=== PATIENT | female | born 1955 | race Caucasian/White ===

== ENCOUNTER → 2017-07-04 | Outpatient (REF) | payer BC ==
[~2017-07-04] MED LIST: /WARF2TA; AMBI10TA OR; ASACOL; CIPR500T19; CITRTAB14 PO; FERROUS SULFATE PO; FLAG500T; IMMODIUM; Januvia OR; KEFL500C OR; LISI5TAB OR; LOPE2TAB3 PO; MESALAMINE ENEMA; MULTTAB4 PO; OXYC10TA12; OXYC10TA56; PRAV10TA4 OR; PRED10TA2; PRIL20CA PO; PULMICORT; TYLE325T5 PO; TYLENOL #3; WELLTAB4 PO; xarelto OR
== END ==
LOC: M LAB REF 17:35
PROVIDERS: ATTEND Nurse Practitioner Family
DX: Z02.1 Encounter for pre-employment examination (principal)

== ENCOUNTER → 2017-11-27 | Outpatient (REF) | payer BC | LOC: M LAB REF 12:47 | DX: N76.0 Acute vaginitis (principal) ==

== ENCOUNTER → 2020-04-11 | Outpatient (REF) | payer MEDICARE, BC ==
[~2020-04-11] MED LIST changes: -/WARF2TA; +COUM1TAB16
== END ==
LOC: M LAB REF 16:04
PROVIDERS: ATTEND Nurse Practitioner Family
DX: N39.0 Urinary tract infection, site not specified (principal)

== ENCOUNTER → 2020-04-26 | Outpatient (REF) | payer MEDICARE, BC ==
[2020-04-26 13:17] LABS: APPEARANCE, URINE CLEAR (CLEAR); BACTERIA, URINE AUTO NEGATIVE (NEGATIVE); BILIRUBIN, URINE AUTO NEGATIVE (NEGATIVE); BLOOD, URINE BLOOD NEGATIVE (NEGATIVE); COLOR, URINE YELLOW (YELLOW); GLUCOSE, URINE (UA) AUTO NEGATIVE (NEGATIVE); KETONE, URINE AUTO NEGATIVE (NEGATIVE); LEUKOCYTE ESTERASE, URINE AUTO NEGATIVE (NEGATIVE); NITRITE, URINE AUTO NEGATIVE (NEGATIVE); PROTEIN, URINE AUTO NEGATIVE (NEGATIVE); RBC, URINE AUTO 1 /HPF (0-3); SPECIFIC GRAVITY URINE AUTO 1.005 (1.002-1.035); SQUAMOUS EPITHELIAL CELL UR AU 0 /HPF (0-6); UROBILINOGEN, URINE AUTO 0.2 mg/dL (0.0-2.0); WBC, URINE AUTO 0 /HPF (0-3)
== END ==
LOC: M LAB REF 12:28
PROVIDERS: ATTEND Nurse Practitioner Family
DX: N39.0 Urinary tract infection, site not specified (principal)

== ENCOUNTER → 2020-05-09 | Outpatient (CLI) | payer MEDICARE, BC ==
--- NOTE | 2020-05-09 08:46 | REPMRS ---
Patient History The patient states she had a clinical breast exam in March 2020.Family history of breast cancer at age 40 in maternal cousin. Digital Woman Screen Mammo: May 09, 2020 - Exam #: [id number] Bilateral CC and MLO view(s) were taken. Technologist: Slime Siu, Technologist Prior study comparison: December 02, 2017, digital woman screen mammo performed at [facility]. September 26, 2016, bilateral digital mammo screening bilat, performed at [facility]. March 14, 2014, bilateral digital mammo screening bilat, performed at [facility]. FINDINGS: The breast tissue is heterogeneously dense. This may lower the sensitivity of mammography. The Volpara volumetric breast density category is: C. There is a stable nodular density on the right unchanged from multiple prior studies. There is a moderate amount of heterogeneously dense fibroglandular tissue which is fairly symmetric. There is no interval development of dominant mass, architectural distortion, or grouped microcalcification typical of malignancy. There has been no change in the appearance of the mammogram from the prior studies. 3-D tomosynthesis shows no additional findings. Assessment: BI-RADS/ACR category 2 mammogram. Benign Findings. Recommendation Routine screening mammogram of both breasts in 1 year (for women over age 40). This patient's Lifetime Breast Cancer RIsk is estimated at 3.6 %. This mammogram was interpreted with the aid of an FDA-approved computer-aided dectection system. Electronically Signed By: Koffi Fenton MD 05/09/20 0846
--- NOTE | 2020-05-11 11:40 | DEXA ---
AP SPINE L1 - L4 1.034 -1.3 0.3 LT FEMUR TOTAL 0.873 -1.1 0.2 LT NECK 0.819 -1.6 -0.1 RT FEMUR TOTAL 0.898 -0.9 0.4 RT NECK 0.821 -1.6 -0.1 TOTAL BODY TOTAL OTHER COMMENTS: There is low bone density of the spine and hips. The density of the spine has increased 5.5% since the initial exam on 05/04/1998. The increased 10.6% since the most recent exam on 12/02/2017. The density of the left hip has decreased 2.3% since the initial exam on 05/04/1998. The density of the left hip is 0% since the most recent exam on 12/12/2017. The density of the right hip has decreased 3.8% since the initial exam on 05/04/1998. The density of the right hip has increased 4.5% since the most recent exam on 12/12/2017. FOLLOW-UP: Recommendation for the next bone density exam: 2 years. AJAY
== END ==
LOC: M WHC 07:39
PROVIDERS: ATTEND Nurse Practitioner Family
DX: Z12.31 Encounter for screening mammogram for malignant neoplasm of breast (principal); M85.80 Other specified disorders of bone density and structure, unspecified site

== ENCOUNTER → 2020-10-26 | Outpatient (CLI) | payer SELFPAY | LOC: M LABSMTC 13:51 | PROVIDERS: ATTEND Pediatrics | DX: Z20.828 Contact with and (suspected) exposure to other viral communicable diseases (principal) ==

== ENCOUNTER → 2020-11-23 | Outpatient (REF) | payer MEDICARE, SELFPAY | LOC: M WUC 20:44 | PROVIDERS: ATTEND Nurse Practitioner Family | DX: N39.0 Urinary tract infection, site not specified (principal) ==

== ENCOUNTER → 2021-02-06 | Outpatient (CLI) | payer MEDICARE, BC ==
[2021-02-06 12:48] LABS: BASO # 0.1 10^3/uL (0.0-0.2); BASO % 0.6 % (0.0-1.0); EOS # 0.1 10^3/uL (0.0-0.5); EOS % 1.1 % (0.0-3.0); HEMATOCRIT 36.6 % (36.0-47.0); HEMOGLOBIN 11.7 g/dl (12.0-15.5); LYMPH # 2.1 10^3/uL (1.5-5.0); LYMPH % 20.5 % (24.0-44.0); MEAN CORPUSCULAR HEMOGLOBIN 27.1 pg (27.0-33.0); MEAN CORPUSCULAR VOLUME 84.7 fl (80.0-96.0); MONO # 0.7 10^3/uL (0.0-0.8); NEUTROPHILS # 7.1 10^3/uL (1.5-8.5); NEUTROPHILS % 70.4 % (36.0-66.0); PLATELET COUNT, AUTOMATED 510 10^3/uL (150-450); RED BLOOD COUNT 4.32 10^6/uL (4.00-5.40); WHITE BLOOD COUNT 10.1 10^3/uL (4.0-10.0)
[2021-02-06 13:51] LABS: ERYTHROCYTE SEDIMENTATION RATE 44 mm/hr (0-30)
[2021-02-06 14:08] LABS: C REACTIVE PROTEIN QUANTITATIV 0.66 MG/DL (0.00-0.30); FOLATE 20.3 NG/ML; PERCENT SATURATION 9.7 % (13.2-45.0)
[2021-02-07 04:07] LABS: HEPATITIS B CORE ANTIBODY IGG Negative (Negative)
== END ==
LOC: M LAB 11:46
PROVIDERS: ATTEND Internal Medicine Gastroenterology
DX: K50.812 Crohn's disease of both small and large intestine with intestinal obstruction (principal); Z11.59 Encounter for screening for other viral diseases

== ENCOUNTER → 2021-02-22 | Outpatient (CLI) | payer MEDICARE, BC ==
[2021-02-22 15:09] LABS: BLOOD UREA NITROGEN 16 MG/DL (7-18); GLOMERULAR FILTRATION RATE > 60.0 (>45)
== END ==
LOC: M LAB 14:11
PROVIDERS: ATTEND Internal Medicine Gastroenterology
DX: K50.812 Crohn's disease of both small and large intestine with intestinal obstruction (principal); Z93.2 Ileostomy status

== ENCOUNTER → 2021-02-28 | Outpatient (CLI) | payer MEDICARE, BC ==
[~2021-02-28] MED LIST changes: +GLUCAGON INJ 1MG VIAL As Ordered ONE; +ISOVUE-370 76% 100ML VIAL As Ordered ONE; +VoLumen 0.1% SUSPENSION 450ML BOTTLE As Ordered ONE
--- NOTE | 2021-02-28 10:59 | REP ---
INDICATION: CROHN'S DX COMPARISON: 01/30/2014. TECHNIQUE: CT Scan of the abdomen and pelvis was performed with intravenous administration of 100 cc of Isovue 370, and volumen oral contrast. Sagittal and coronal reconstruction images are performed. FINDINGS: Lung bases: Unremarkable. Liver: Normal Gallbladder: Prior cholecystectomy. There is expected prominence of the intrahepatic and extrahepatic bile ducts. The common bile duct measures 11 mm in maximum diameter. Spleen: Normal. Adrenals: Normal. Pancreas: Normal. Kidneys: Normal. Small and large bowel: There has been a prior colectomy. A right ileostomy is present. There is a suture line in the distal ileum, in the pelvis just to the left of midline. Just proximal to the suture line there is appears to be an area of focal wall thickening and moderate luminal narrowing, with moderate dilatation of the more proximal small bowel loop. There also appears to be focal wall thickening and suspected stricture ring of the ileum just distal to the suture line. Another focal area of wall thickening and stricturing is suspected approximately 5 cm distal to that. There is diffuse wall thickening of the more distal ileum with suspected focal stricture of the distal ileum located in the more inferior ventral hernia. Free fluid: None. Abdominal aorta: No aneurysm or dissection. Adenopathy: None. Appendix: Not inflamed. Osseous structures: There are degenerative changes of the spine without compression deformity. Pelvis: No mass. There are 3 wide ventral hernias containing noninflamed fat and bowel loops. IMPRESSION: Postsurgical changes with several areas of mucosal fold and wall thickening of distal ileum, and intermittent moderate small bowel dilatation, suggesting partial obstruction at these areas of luminal narrowing and strictures. <Electronically signed by Elias Lui > 02/28/21 [id number]
== END ==
LOC: M RAD 08:17
PROVIDERS: ATTEND Internal Medicine Gastroenterology
DX: K50.812 Crohn's disease of both small and large intestine with intestinal obstruction (principal); Z90.49 Acquired absence of other specified parts of digestive tract
CPT/HCPCS: 74177; J1610; Q9967

== ENCOUNTER 2021-03-15 14:40 | Outpatient (CLI) | payer MEDICARE, BC ==
[~2021-03-15] VITALS: Ht 153.7 cm; Wt 52.7 kg
[~2021-03-15 14:40] MED LIST changes: -GLUCAGON INJ 1MG VIAL As Ordered ONE; -ISOVUE-370 76% 100ML VIAL As Ordered ONE; -VoLumen 0.1% SUSPENSION 450ML BOTTLE As Ordered ONE
[2021-03-15] MEDS ORDERED: USTEKINUMAB 260 MG in NS 198 ML IV ONE (15:00)
[2021-03-15 16:15] VITALS: BP 131/63
== END 2021-03-15 16:45 | disposition home or self-care (01) ==
LOC: M INFU 14:40
PROVIDERS: ATTEND Internal Medicine Gastroenterology
DX: K50.90 Crohn's disease, unspecified, without complications (principal); Z88.1 Allergy status to other antibiotic agents
CPT/HCPCS: 96365; J3358

== ENCOUNTER → 2021-05-21 | Outpatient (CLI) | payer MEDICARE, BC ==
[~2021-05-21] MED LIST changes: +ACET1TAB55 PO; +ASPI81CH33 PO; +ATOR1TAB21; +BUSP15TA47; +CALC600T61 PO; +CLAR10CA3 PO; +FERR325T3 PO; +LISI2.5T2 PO; +MELA10CA6 PO; +METF-838; +MULT-90 PO; +OMEP-218 PO; +PROBCAP14 PO; +STEL90IN
--- NOTE | 2021-05-21 09:54 | REP ---
INDICATION: UPPER ABD PAIN LIVER SPLEEN ? SPLEENOMEGALY. COMPARISON: None. TECHNIQUE: Transabdominal ultrasound FINDINGS: Multiple ultrasonographic images of the liver show the hepatic parenchymal echo pattern to be within normal limits. There is no intrahepatic or extrahepatic ductal dilatation. The common bile duct measures 7 mm. The imaged portion of the pancreas is within normal limits. The spleen measures 8.9 x 7.4 x4.8 cm. The volumetric index calculation is 316. This is within the normal range. No splenic or perisplenic abnormalities are noted. The right kidney measures 9.9 x 5.6 x 3.6 cm. The renal cortical echotexture is within normal limits. Corticomedullary differentiation is preserved. There is no hydronephrosis. There are no masses. The left kidney measures 9.6 x 3.7 x 5.1 cm. The renal cortical echotexture is within normal limits. Corticomedullary differentiation is preserved. There is no hydronephrosis. There are no masses. The imaged portion of the abdominal aorta is within normal limits. There is no evidence of free fluid. IMPRESSION: Within normal limits <Electronically signed by Gary Arevalo > 05/21/21 0995
== END ==
LOC: M RAD 09:06
PROVIDERS: ATTEND Internal Medicine Hematology & Oncology
DX: R16.1 Splenomegaly, not elsewhere classified (principal)

== ENCOUNTER → 2021-06-28 | Outpatient (CLI) | payer MEDICARE, BC ==
[~2021-06-28] MED LIST changes: -ATOR1TAB21; +ATOR1TAB21 PO; -BUSP15TA47; +BUSP15TA47 PO; +CALC-176 PO; +JANU100T PO; -LISI2.5T2 PO; +LISI2.5T9 PO; +LOPE-39 PO; -METF-838; +METF-838 PO; -STEL90IN; +STEL90IN IM; +WELLTAB38 PO; +XARE20TA PO
[2021-06-28 16:11] LABS: BASO # 0.1 10^3/uL (0.0-0.2); BASO % 0.6 % (0.0-1.0); EOS # 0.1 10^3/uL (0.0-0.5); EOS % 0.7 % (0.0-3.0); HEMATOCRIT 36.9 % (36.0-47.0); HEMOGLOBIN 11.9 g/dl (12.0-15.5); LYMPH # 2.3 10^3/uL (1.5-5.0); LYMPH % 21.9 % (24.0-44.0); MEAN CORPUSCULAR HEMOGLOBIN 28.8 pg (27.0-33.0); MEAN CORPUSCULAR HGB CONC 32.2 g/dl (32.0-36.5); MEAN CORPUSCULAR VOLUME 89.3 fl (80.0-96.0); MONO # 0.9 10^3/uL (0.0-0.8); MONO % 8.1 % (2.0-8.0); NEUTROPHILS # 7.1 10^3/uL (1.5-8.5); NEUTROPHILS % 68.2 % (36.0-66.0); PLATELET COUNT, AUTOMATED 454 10^3/uL (150-450); RED BLOOD COUNT 4.13 10^6/uL (4.00-5.40); WHITE BLOOD COUNT 10.4 10^3/uL (4.0-10.0)
[2021-06-28 16:33] LABS: ERYTHROCYTE SEDIMENTATION RATE 39 mm/hr (0-30)
[2021-06-28 16:41] LABS: ALBUMIN 3.3 GM/DL (3.2-5.2); ALT/SGPT 30 U/L (12-78); BILIRUBIN,DIRECT 0.1 MG/DL (0.0-0.2); BILIRUBIN,TOTAL 0.4 MG/DL (0.2-1.0); BLOOD UREA NITROGEN 13 MG/DL (7-18); C REACTIVE PROTEIN QUANTITATIV 0.64 MG/DL (0.00-0.30); CALCIUM LEVEL 9.6 MG/DL (8.8-10.2); CARBON DIOXIDE LEVEL 28 MEQ/L (21-32); CHLORIDE LEVEL 106 MEQ/L (98-107); CREATININE FOR GFR 0.84 MG/DL (0.55-1.30); GLOMERULAR FILTRATION RATE > 60.0 (>45); GLUCOSE, FASTING 126 MG/DL (70-100); IRON (FE) 33 UG/DL (50-170); PERCENT SATURATION 7.8 % (13.2-45.0); POTASSIUM SERUM 4.4 MEQ/L (3.5-5.1); SODIUM LEVEL 140 MEQ/L (136-145); TOTAL IRON BINDING CAPACITY 424 UG/DL (250-450); TOTAL PROTEIN 6.9 GM/DL (6.4-8.2)
[2021-06-28 16:49] LABS: FOLATE > 24.0 NG/ML; VITAMIN B12 LEVEL 598 PG/ML
[2021-07-09 16:08] LABS: CALPROTECTIN STOOL 40 ug/g (0-120); FATS NEUTRAL Normal (.); FATS TOTAL Normal (.)
== END ==
LOC: M LAB 14:16
PROVIDERS: ATTEND Internal Medicine Gastroenterology
DX: K50.812 Crohn's disease of both small and large intestine with intestinal obstruction (principal)

== ENCOUNTER → 2021-07-12 | Outpatient (CLI) | payer MEDICARE, BC ==
[~2021-07-12] MED LIST changes: +E-Z-GAS II EFFERVESCENT PACKET (SODIUM BICARB./CITRIC ACID/SIMETHICONE) As Ordered ONE; +E-Z-HD 98% w/w 340GM SUSP BTL As Ordered ONE; +E-Z-PAQUE 96% w/w SUSP 176GM BTL As Ordered ONE
== END ==
LOC: M RAD 09:28
PROVIDERS: ATTEND Internal Medicine Gastroenterology
DX: K50.812 Crohn's disease of both small and large intestine with intestinal obstruction (principal)

== ENCOUNTER → 2021-09-15 | Outpatient (CLI) | payer MEDICARE, BC ==
[~2021-09-15] MED LIST changes: +D31000TA2 PO; -E-Z-GAS II EFFERVESCENT PACKET (SODIUM BICARB./CITRIC ACID/SIMETHICONE) As Ordered ONE; -E-Z-HD 98% w/w 340GM SUSP BTL As Ordered ONE; -E-Z-PAQUE 96% w/w SUSP 176GM BTL As Ordered ONE; +KP F1200 PO
== END ==
LOC: M LABSMTC 11:39
PROVIDERS: ATTEND Anesthesiology
DX: Z01.812 Encounter for preprocedural laboratory examination (principal); Z20.822 Contact with and (suspected) exposure to COVID-19

== ENCOUNTER → 2021-09-17 | Outpatient (CLI) | payer MEDICARE, BC ==
--- NOTE | 2021-09-17 16:22 | REPMRS ---
Patient History The patient states she had a clinical breast exam in August 2021. Family history of breast cancer at age 40 in maternal cousin. Patient states no breast complaints today. Patient has signed MRS History Sheet. Digital Woman Screen Mammo: September 17, 2021 - Exam #: [id number] Bilateral CC and MLO view(s) were taken. Technologist: Mansi Flores, Technologist Prior study comparison: May 09, 2020, bilateral digital woman screen mammo performed at [facility]. December 02, 2017, digital woman screen mammo performed at [facility]. FINDINGS: There are scattered fibroglandular densities. Screening. Digital screening (2D) mammography was performed bilaterally in the CC and MLO projections. Additionally, breast tomosynthesis (3D mammography) was performed bilaterally in the CC and MLO projections. Todays exam was compared to the prior exam/exams. By history, the patient has no complaints of a palpable breast abnormality or other significant breast complaints. The Volpara volumetric breast density category is B, there are scattered areas of fibroglandular densities. The breasts are unchanged in size and shape. There are no angely-soft tissue densities or spiculated masses. There is no internal architectural distortion. There are no suspicious angely-calcific clusters. Skin thickening or nipple retraction is not present. IMPRESSION: BI-RADS Category 2- Benign Findings. There is no evidence of malignant alteration of the breasts. Followup examination recommended in one year. The lifetime Tyrer-Cuzick score is 3.4% This mammogram was read with the assistance of Lucy OneWheel,an FDA approved computer aided detection system for mammography. Negative x-ray reports should not delay surgical consultation if a dominant or clinically suspicious mass is present. Not all breast cancers can be identified by mammography. Therefore, we recommend that you continue to perform regular breast self-examination and physical examination and then promptly contact your physician of any concerns or changes. Adenosis and dense breasts may obscure an underlying neoplasm. No significant changes when compared with prior studies. Assessment: BI-RADS/ACR category 2 mammogram. Benign Findings. Recommendation Routine screening mammogram of both breasts in 1 year. Electronically Signed By: Manish Baldwin MD 09/17/21 [id number]
== END ==
LOC: M WHC 15:01
PROVIDERS: ATTEND Nurse Practitioner Adult Health
DX: Z12.31 Encounter for screening mammogram for malignant neoplasm of breast (principal); Z80.3 Family history of malignant neoplasm of breast

== ENCOUNTER 2021-09-20 07:54 | Day surgery (SDC) | payer MEDICARE, BC ==
[~2021-09-20] VITALS: Ht 153.9 cm; Wt 55.7 kg
[~2021-09-20 07:54] MED LIST changes: +LIDOCAINE 2% 100MG/5ML SDV (FOR ANES.) As Ordered ONE; +NS 1,000 ML IV ONE; +propofoL 200 MG/20 ML VIAL As Ordered ONE
--- OUTSIDE RECORDS SUMMARY | 2021-09-20 07:57 | CCD ---
Author Author [facility] Organization [facility] Address Unknown Phone Unavailable Care Team Providers Care Agriculture Mechanic Name Role Phone Pretty Junior Unavailable PROBLEMS Type Condition ICD9-CM Code [id number] Code Onset Dates Condition S tatus W/U Status Risk SNOMED Code Notes Problem Colostomy care Z43.3 Active confirmed 41614 2008 ALLERGIES Allergen (clinical drug ingredient) Drug/Non Drug Allergy do cumented on EMR Reaction Allergy Type Onset Date Status tetracycline Tetracycline Rash Drug Allergy Active ENCOUNTERS from 1955 to 2021-09-04 Encounter Location Date Provider Diagnosis [facility] [address] [facility] [phone] [place] [address] Aug, Pretty Sandi IMMUNIZATIONS No Information SOCIAL HISTORY Tobacco Use: Social History Observation Description Date Details (start date - stop date) Never Smoker Sex Assigned At : Social History Observation Description Sex Assigned At Unknown Education: Question Answer Notes Level of Education: High School Language: Question Answer Notes Languages spoken: Kyrgyz Anabaptism: Question Answer Notes Anabaptism No catholic beliefs that would impact health care. Alcohol Screening: Question Answer Notes Did you have a drink containing alcohol in the past year? No Points 0 Interpretation Negative Tobacco Use: Question Answer Notes Are you a: never smoker REASON FOR REFERRAL No Information VITAL SIGNS No information MEDICATIONS Medication SIG (Take, Route, Frequency, Duration) Notes Start Da te End Date Status buPROPion HCl ER (XL) 150 MG 1 tablet in the morning O rally Once a day for 30 day(s) Active Omeprazole 20 MG 1 capsule Orally Once a day Active Vitamin D 25 MCG (1000 UT) 2 tablet Orally Once a day Active Stelara 90 MG/ML as directed Subcutaneous every 8 weeks Active Ocuvite-Lutein - as directed Orally Active Atorvastatin Calcium 20 MG 1 tablet Orally Once a day for 30 day(s) Active Melatonin 10 MG 1 tablet in the evening Orally Once a day Active busPIRone HCl 15 MG 1 tablet Orally Twice a day Active Fish Oil 1200 MG 2 capsule Orally Once a day Active Fluticasone Propionate 50 MCG/ACT 1 spray in each nost ril Nasally Once a day for 30 day(s) Active metFORMIN HCl ER 500 MG 2 tablet with evening meal Orally Once a day Active Aspirin 81 MG 1 tablet Orally Once a day for 30 day(s) Active Lisinopril 2.5 MG 1 tablet Orally Once a day for 30 day(s) Active Fortify Probiotic Womens Ex St - as directed Orally daily Active Ferrous Sulfate 325 (65 Fe) MG 1 tablet Orally Once a day for 30 day( s) Active Womens One Daily - 1 tablet Orally daily Active PROCEDURES No Information RESULTS No Results REASON FOR VISIT Cancel Appt MEDICAL (GENERAL) HISTORY Type Description Date Medical History PE Medical History anxiety Medical History DM Medical History crohn's disease Medical History HTN Surgical History Hernia Surgical History Tubal ligation Surgical History Tonsillectomy Surgical History Cholecystectomy Surgical History Colonoscopy 2009 Surgical History Ileosotmy 2007 Surgical History Cataract's Hospitalization History dehydration- [facility] Hospitalization History surgery related Goals Section No Information Health Concerns No Information MEDICAL EQUIPMENT No Information MENTAL STATUS No Information FUNCTIONAL STATUS No Information ASSESSMENTS No Information PLAN OF TREATMENT Next Appt Details Provider Name:Octavio Matson, 01:45:00 PM, [address] [place] [address], , [place], [address], Insurance Providers Payer Name Payer Address Payer Phone Insured Name Patient Relati onship to Insured Coverage Start Date Coverage End Date MEDICARE Part A and B [address] [facility] [phone] [place] [employer] self [facility] [address] [address] [facility] [id number] [place] [id number]
--- OUTSIDE RECORDS SUMMARY | 2021-09-20 07:57 | CCD ---
Author Author [facility] Organization [facility] Address Unknown Phone Unavailable Care Team Providers Care Machine I Cutter Name Role Phone Pretty Junior Unavailable PROBLEMS Type Condition ICD9-CM Code [id number] Code Onset Dates Condition S tatus W/U Status Risk SNOMED Code Notes Problem Colostomy care Z43.3 Active confirmed 2008 ALLERGIES Allergen (clinical drug ingredient) Drug/Non Drug Allergy do cumented on EMR Reaction Allergy Type Onset Date Status tetracycline Tetracycline Rash Drug Allergy Active ENCOUNTERS from 1955 to 2021-08-30 Encounter Location Date Provider Diagnosis [facility] [address] [phone] [place] [address] Aug, Pretty Junior Colostomy care Z43.3 IMMUNIZATIONS No Information SOCIAL HISTORY Tobacco Use: Social History Observation Description Date Details (start date - stop date) Never Smoker Sex Assigned At : Social History Observation Description Sex Assigned At Unknown Education: Question Answer Notes Level of Education: High School Language: Question Answer Notes Languages spoken: Greenlandic Catholic: Question Answer Notes Catholic No hoahaoism beliefs that would impact health care. Alcohol Screening: Question Answer Notes Did you have a drink containing alcohol in the past year? No Points 0 Interpretation Negative Tobacco Use: Question Answer Notes Are you a: never smoker REASON FOR REFERRAL No Information VITAL SIGNS Weight 124 lbs Aug, Height 60 in Aug, BMI 24.21 kg/m2 Aug, Heart Rate 102 /min Aug, Respiratory Rate 17 /min Aug, Temperature 98.1 degrees Fahrenheit Aug, Oximetry 96 Aug, Blood pressure systolic 141 mm Hg Aug, Blood pressure diastolic 63 mm Hg Aug, MEDICATIONS Medication SIG (Take, Route, Frequency, Duration) [...] Information RESULTS No Results REASON FOR VISIT Ileostomy care due to leakage MEDICAL (GENERAL) HISTORY Type Description Date Medical History PE Medical History anxiety Medical History DM Medical History crohn's disease Medical History HTN Surgical History Hernia Surgical History Tubal ligation Surgical History Tonsillectomy Surgical History Cholecystectomy Surgical History Colonoscopy 2009 Surgical History Ileosotmy 2006 Surgical History Cataract's Hospitalization History dehydration- [facility] Hospitalization History surgery related Goals Section No Information Health Concerns No Information MEDICAL EQUIPMENT No Information MENTAL STATUS No Information FUNCTIONAL STATUS No Information ASSESSMENTS Encounter Date Diagnosis Assessment Notes Treatment Notes Treatm ent Clinical Notes Aug, Colostomy care (ICD-10 - Z43.3) Dressing changes twice a week. The dressing should follow those documented in the procedure note. We have changed your dressings and will monitor how this helps. We will have the patient return in 2 weeks Coloplast education given on Life after Ileostomy, addressing lifestyle and dietary concerns PLAN OF TREATMENT Treatment Notes Assessment Notes Clinical Notes Colostomy care Dressing changes twice a wee k. The dressing should follow those documented in the procedure note.We have changed your dressings and will monitor how this helps. We will have the patient return in 2 weeks Coloplast education given on Life after Ileostomy, addressing lifestyle and dietary concerns Next Appt Details 1 Week Reason: Provider Name:Pretty Junior, 09-04 01:00:00 PM, [address], , [place], [address], Insurance Providers Payer Name Payer Address Payer Phone Insured Name Patient Relati onship to Insured Coverage Start Date Coverage End Date MEDICARE Part A and B [address] [facility] [phone] [place] [employer] self [facility] [address] [address] [facility] [id number] SUN IBANEZ [id number]
--- OUTSIDE RECORDS SUMMARY | 2021-09-20 07:57 | CCD | Continuity of Care Document ---
Author Author Nayely Mcneill Organization Unknown Address [address] [address] Phone [phone] Care Team Providers Care Social Services Name Role Phone Tray Triplett MD AUTM [phone] Kathleen Estes ANP AUTM [phone] Ruiz Wan MD AUTM [phone] Problems Active Problems Provider Date Pulmonary embolism JOHN Mcneill Onset: 03/03/2012 Gastroesophageal reflux disease KAITLIN Cruz Onset : 03/03/2012 Pure hypercholesterolemia KAITLIN Cruz Onset: 02/22 Type 2 diabetes mellitus KAITLIN Cruz Onset: 03/03 Anemia Stephen Fisher D.O. Onset: 2011 Social History Type Date Description Comments Sex Unknown ETOH Use Occasionally consumes beer Tobacco Use Start: Unknown End: Unknown Patient is a former smoker SMOKED FOR 15YRS 1 ANUPAM A DAY quit age 37 Allergies and adverse reactions Active Allergies Criticality Reaction | Severity Comments Date Tetracycline Unable to assess criticality rash 11/13/2010 Medications Active Medications SIG Qnty Indications Ordering Provide r Date Alprazolam 0.25mg Tablets 1/2 - one tablet twice daily as needed anxiety 10tabs JOHN Mcneill 0 05/15/2021 Zolpidem Tartrate 5mg Tablets take one tablet by mouth at bedtime as needed for sleep maximum daily dose = 1 tablet mdd 1 7tabs JOHN Mcneill 05/03/2021 Estrace 0.1mg/GM Cream 1/4 applicatorful vaginally at bedtime daily x 14 days then three times a week 42.500gm Kathleen Gaming [facility] 03/30/2021 Lutein 20mg Capsules 1 by mouth every day Kathleen Gaming [facility] 02/01/2021 Lisinopril 2.5mg Tablets 1 by mouth every day 90tabs E11.21 Kathleen Gaming [facility] 10/04/2020 Calcium + D 1200MG/D Mercedes Russell M.D. 10/04/2019 Bupropion Hydrochloride ER (XL) 150mg Tablets ER 24HR take 1 tablet by mouth once daily 90tabs Kathleen Gaming [facility] 09/07/2019 Fluticasone Propionate 50mcg/Act Suspension 2 sprays each nostril daily X 2 Weeks Then prn 16gm [facility] 05/18/2019 Fortify Probiotic Womens Extra Strength Capsules Cecilia Scott,[facility] 10/23/20 18 Buspirone HCL 15mg Tablets Take 1 Tablet By Mouth Twice Daily 180tabs Kathleen Gaming [facility] 05/29/2018 Vitamin D 1000Unit Tablets 2 by mouth every day Randa Burden, [facility] 8 MetricStreamuch Ultra Blue Strips use twice daily to check blood sugar dx e11.9 200units [facility] 09/03/2017 Melatonin 10mg Tablets 1 hs p o [facility] 09/24/2016 Metformin HCL ER 500mg Tablets ER 24HR take 2 tablets by mouth once daily with the largest meal of the day 180tabs Kathleen Gaming [facility] 09/24/2016 Aspirin Childrens 81mg Chewtabs 1 by mouth every hs [facility] 09/24/2016 Loperamide HCL 2mg Capsules 4 capsules at bedtime by mouth may take additional 4 capsules in daytime - not to exceed 16mg daily 240caps Kathleen Gaming [facility] 09/24/2016 Ferrous Sulfate 325(65Fe) mg Table ts DR 1 by mouth every day [facility] 6 Womens One Daily Tablets 1 by mouth every day Randa Burden, [facility] 6 Atorvastatin Calcium 20mg Tablets Take 1 Tablet By Mouth Every Day 90tabs Kathleen Gaming [facility] 08/[address] take 1 capsule by mouth twice daily. maximum daily dose is 2 180caps An n Viola Yip, [facility] 11/22/2010 Similasan Earache Relief Solution Unknown [place]-3 Drops For Eyes Unknown Budesonide 3mg Caps DR Harini 3 tabs daily before dinner for four weeks, then 2 tabs daily for four weeks, then 1 tab daily for remaining four weeks- Dr. Wan's Unknow n Stelara 90mg/ml Soln Prefill Syringe Unknown Medications Administered in Office Medication SIG Qnty Indications Ordering Provider Date Administration Of Flu Vaccine Inj ection Kathleen Viola Yip, INSURANCE OFFICE MANAGER 08/23/2021 Covid-19 vaccine, Unspecified Inj ection Unknown 12/28/2020 Covid-19 vaccine, Unspecified Inj ection Unknown 11/30/2020 Immunization Adminstration,1 Vaccine/Tox oid Injection Cecilia Whitaker,[facility] 04/11/20 20 Immunizations CPT Code Status Date Vaccine Reaction Lot # [id number] Given 08/23/2021 Influenza Vaccin e Quadrivalent Preser/Antibiotic Free Im Use [id number] Given 04/11/2020 Pneumovax 23 [id number] Given 04/11/2020 Adacel- Tetanus Diphtheria Pertussis [id number] U-Flu Given 09/26/2019 Influenza,Unspecified U-PneuC Given 06/07/2019 Prevnar 13 [id number] Given 06/07/2019 Shingrix Zoster Vaccine (HZV), Recombinant, Subunit, Adjuvanted 50556 Given 04/07/2019 Shingrix U-Flu Given 09/03/2018 Influenza,Unspecified 50390 Given 07/04/2017 PPD 0 mm read by Apolonia thao, URIEL [id number] Given 09/24/2016 Fluvirin Virus Vaccine 16 [id number] [id number] Given 09/02/2003 Pneumovax 23 Vital Signs Date Vital Result Comment 08/23/2021 2:09pm BP Systolic 112 mmHg BP Diastolic 70 mmHg Heart Rate 98 /min Height 61.25 inches 5'1.25" Weight 122.00 lb O2 % BldC Oximetry 97 % BMI (Body Mass Index) 22.9 kg/m2 07/05/2021 10:32am BP Systolic 130 mmHg BP Diastolic 64 mmHg Heart Rate 88 /min Height 61.25 inches 5'1.25" Weight 125.00 lb O2 % BldC Oximetry 96 % BMI (Body Mass Index) 23.4 kg/m2 Results Test Acquired Date Facility Test Result H/L Range Note Laboratory test finding 06/28/[address] [address] [phone] Erythrocyte Sedimentation Rate 39 mm/hr High 0 -30 Liver Profile 06/28/2021 [facility] nter [address] [place] [address] [phone] Ast/Sgot 20 U/L Normal 7-37 Alt/SGPT 30 U/L Normal 12-78 Alkaline Phosphatase 95 U/L Normal 45-117 Bilirubin,Total 0.4 mg/dL Normal 0.2-1.0 Bilirubin,Direct 0.1 mg/dL Normal 0.0-0.2 Total Protein 6.9 GM/DL Normal 6.4-8.2 Albumin 3.3 GM/DL Normal 3.2-5.2 Albumin/Globulin Ratio 0.9 Low 1.2-2.2 Basic Metabolic Profile 06/28/[address] [address] [phone] Glucose, Fasting 126 mg/dL High 70-100 Blood Urea Nitrogen 13 mg/dL Normal 7-18 Creatinine For GFR 0.84 mg/dL Normal 0.55-1.30 Glomerular Filtration Rate > 60.0 Normal >45 1 Sodium Level 140 mEq/L Normal 136-145 Potassium Serum 4.4 mEq/L Normal 3.5-5.1 Chloride Level 106 mEq/L Normal 98-107 Carbon Dioxide Level 28 mEq/L Normal 21-32 Anion Gap 6 mEq/L Low 8-16 Calcium Level 9.6 mg/dL Normal 8.8-10.2 Total Iron Binding Capacit 06/28/[address] [address] [phone] Iron (Fe) 33 g/dL Low 50-170 Total Iron Binding Capacity 424 g/dL Normal 250-450 Percent Saturation 7.8 % Low 13.2-45.0 Vitamin B12 & Folate 06/28/2021 [facility] C enter [address] [place] [address] [phone] Vitamin B12 Level 598 pg/mL Normal 2 Folate > 24.0 NG/ML Normal 3 Laboratory test finding 06/28/2021 [facility] [address] [place], [place] [id number] [phone] C Reactive Protein Quantitativ 0.64 mg/dL High 0 .00-0.30 Fat Fecal Qualitative 06/28/[address] [address] [phone] Fats Neutral Normal Normal . 4 Fats Total Normal Normal . 5 Laboratory test finding 06/28/[address] [address] [phone] Pancreatic Elastase Stool TNP Normal 6 Calprotectin Stool 40 ug/g Normal 0-120 7 CBC With Differential 06/28/[address] [address] [phone] White Blood Count 10.4 10 High 4.0-10.0 Red Blood Count 4.13 10 Normal 4.00-5.40 Hemoglobin 11.9 g/dL Low 12.0-15.5 Hematocrit 36.9 % Normal 36.0-47.0 Mean Corpuscular Volume 89.3 fl Normal 80.0-96.0 Mean Corpuscular Hemoglobin 28.8 pg Normal 27.0-33.0 Mean Corpuscular HGB Conc 32.2 g/dL Normal 32.0-36.5 Red Cell Distribution Width 19.7 % High 11.5-14.5 Platelet Count, Automated 454 10 High 150-450 Neutrophils % 68.2 % High 36.0-66.0 Lymph % 21.9 % Low 24.0-44.0 Houghton % 8.1 % High 2.0-8.0 Eos % 0.7 % Normal 0.0-3.0 Baso % 0.6 % Normal 0.0-1.0 Immature Granulocyte % 0.5 % Normal 0-3.0 Nucleated Red Blood Cell % 0.0 % Normal 0-0 Neutrophils # 7.1 10 Normal 1.5-8.5 Lymph # 2.3 10 Normal 1.5-5.0 Houghton # 0.9 10 High 0.0-0.8 Eos # 0.1 10 Normal 0.0-0.5 Baso # 0.1 10 Normal 0.0-0.2 Comprehensive Metabolic Profil 05/09/[address] [address] [phone] Glucose, Fasting 121 mg/dL High 70-100 Blood Urea Nitrogen 27 mg/dL High 7-18 Creatinine For GFR 1.00 mg/dL Normal 0.55-1.30 Glomerular Filtration Rate 58.9 Normal >45 8 Sodium Level 137 mEq/L Normal 136-145 Potassium Serum 4.2 mEq/L Normal 3.5-5.1 Chloride Level 106 mEq/L Normal 98-107 Carbon Dioxide Level 25 mEq/L Normal 21-32 Anion Gap 6 mEq/L Low 8-16 Calcium Level 8.9 mg/dL Normal 8.8-10.2 Ast/Sgot 26 U/L Normal 7-37 Alt/SGPT 40 U/L Normal 12-78 Alkaline Phosphatase 79 U/L Normal 45-117 Bilirubin,Total 0.5 mg/dL Normal 0.2-1.0 Total Protein 7.5 GM/DL Normal 6.4-8.2 Albumin 3.4 GM/DL Normal 3.2-5.2 Albumin/Globulin Ratio 0.8 Low 1.2-2.2 Laboratory test finding 05/09/[address] [address] [phone] Jak2 Mutations For Path Sendou See Pathology Re <SEE NOTE> Normal 9 BCR/Abl Screen For CML Path 05/09/[address] [address] [phone] BCR/Abl Screen For CML Path So See Pathology Re <SEE NOTE> Normal 10 Laboratory test finding 05/09/[address] [address] [phone] Vitamin B12 Level 580 pg/mL Normal 247-911 11 Ferritin 19 NG/ML Normal 8-252 Total Iron Binding Capacit 05/09/[address] [address] [phone] Iron (Fe) 139 g/dL Normal 50-170 Total Iron Binding Capacity 494 g/dL High 250-450 Percent Saturation 28.1 % Normal 13.2-45.0 CBC With Differential 05/09/2021 [facility] [address] [place] [address] [phone] White Blood Count 15.0 10 High 4.0-10.0 Red Blood Count 4.63 10 Normal 4.00-5.40 Hemoglobin 12.9 g/dL Normal 12.0-15.5 Hematocrit 39.2 % Normal 36.0-47.0 Mean Corpuscular Volume 84.7 fl Normal 80.0-96.0 Mean Corpuscular Hemoglobin 27.9 pg Normal 27.0-33.0 Mean Corpuscular HGB Conc 32.9 g/dL Normal 32.0-36.5 Red Cell Distribution Width 19.1 % High 11.5-14.5 Platelet Count, Automated 319 10 Normal 150-450 Neutrophils % 92.5 % High 36.0-66.0 Lymph % 5.4 % Low 24.0-44.0 Houghton % 0.7 % Low 2.0-8.0 Eos % 0.0 % Normal 0.0-3.0 Baso % 0.1 % Normal 0.0-1.0 Immature Granulocyte % 1.3 % Normal 0-3.0 Nucleated Red Blood Cell % 0.0 % Normal 0-0 Neutrophils # 13.9 10 High 1.5-8.5 Lymph # 0.8 10 Low 1.5-5.0 Houghton # 0.1 10 Normal 0.0-0.8 Eos # 0.0 10 Normal 0.0-0.5 Baso # 0.0 10 Normal 0.0-0.2 Complete Blood Count 03/30/2021 [facility] Warrant Server: [place] [address] [phone] WBC 9.2 x10*3/UL 4.1 - 10.9 12 RBC 4.37 x10*6/UL 4.20 - 6.30 Hemoglobin 12.3 g/dL 12.0 - 18.0 Hematocrit 36.6 % Low 37.0 - 51.0 MCV 83.6 fL 80.0 - 97.0 MCH 28.2 pg 26.0 - 32.0 MCHC 33.7 g/dL 31.0 - 38.0 RDW 15.5 % High 11.6 - 13.7 PLT 506 x10*3/UL High 140 - 440 MPV 7.1 FL Low 7.8 - 11.0 Lymph % 19.4 % 10.0 - 58.5 Mid % 5.4 % 1.7 - 9.3 Neut % 75.2 % 37.0 - 92.0 Lymph # 1.7 x10*3/UL 0.6 - 4.1 Mid # 0.6 x10*3/UL 0.1 - 0.6 Neut # 6.9 x10*3/UL 2.0 - 7.8 A1c 03/30/2021 [facility] , Warrant Server: Dr Dc Chavez [place], [place] [id number] [phone] Hba1c 6.0 % High <5.7 13 Est Avg Glucose 125 mg/dL High 60 - 110 Comprehensive Chem Profile 03/30/2021 [facility] Warrant Server: [place] [address] [phone] Glucose 94 mg/dL 74 - 99 14 BUN 19 mg/dL High 7 - 18 Creatinine 1.0 mg/dL 0.6 - 1.3 Sodium 142 mEq/L 136 - 145 Potassium 4.1 mEq/L 3.5 - 5.1 Chloride 104 mEq/L 98 - 107 Carbon Dioxide 30 mEq/L 21 - 32 Calcium 9.0 mg/dL 8.5 - 10.1 Alk. Phosphatase 112 mg/dL 46 - 116 Total Bilirubin 0.3 mg/dL 0.2 - 1.0 Ast (Sgot) 17 U/L 15 - 37 Alt (SGPT) 23 U/L 12 - 78 Albumin 3.0 g/dL Low 3.4 - 5.0 Total Protein 7.4 g/dL 6.4 - 8.2 A/G Ratio 0.68 CALC Low 1.00 - 1.90 GFR 55 mL/min Low >60 GFR >= 60 mL/min >60 15 Lipid Profile 03/30/2021 [facility] Warrant Server: [place] [address] [phone] Cholesterol 143 mg/dL 131 - 200 Triglycerides 105 mg/dL 30 - 150 HDL Cholesterol 89 mg/dL High 35 - 60 LDL (Calculated) 33 CALC Low 50 - 159 Laboratory test finding 03/30/2021 [facility] roshan, david Warrant Server: [place] [address] [phone] Magnesium 1.9 mg/dL 1.8 - 2.4 1 Units are mL/min/1.73 m2 Chronic Kidney Disease Staging per NKF: Stage I & II GFR >=60 Normal to Mildly Decreased Stage III GFR 30-59 Moderately Decreased Stage IV GFR 15-29 Severely Decreased Stage V GFR <15 Very Little GFR Left ESRD GFR <15 on QUENCHER OPERATOR 2 VITAMIN B12 NORMAL RANGE NORMAL 247 - 911 PG/ML INDETERMINATE 211 - 246 PG/ML DEFICIENT LESS THAN 211 PG/ML 3 FOLATE NORMAL RANGE NORMAL GREATER THAN 5.4 NG/ML INDETERMINATE 3.4-5.4 NG/ML DEFICIENT LESS THAN 3.4 NG/ML 4 Normal (<60 Droplets/HPF) 5 Normal (<100 Droplets/HPF) 6 Test not performed. Consiste ncy of stool specimen too watery for analysis. TEST: [id number] Pancreatic Elastase, Fecal Testing performed at reference lab . Report copy to follow on a separate form. 07/10/21 REF LAB#:[id number] Concentration Interpreta tion Follow-Up <16 - 50 ug/g Normal None >50 -120 ug/g Borderline Re-evaluate in 4-6 weeks >120 ug/g Abnormal Repeat as clinically indicated 8 Units are mL/min/1.73 m2 Chronic Kidney Disease Staging per NKF: Stage I & II GFR >=60 Normal to Mildly Decreased Stage III GFR 30-59 Moderately Decreased Stage IV GFR 15-29 Severely Decreased Stage V GFR <15 Very Little GFR Left ESRD GFR <15 on QUENCHER OPERATOR 9 See Pathology Report Specimen Collection for Pathology Reference Lab Testing. Refer to [facility] Pathology Report for Results: [id number] See Pathology Report Specimen Collection for Pathology Reference Lab Testing. Refer to [facility] Pathology Report for Results:[id number] VITAMIN B12 NORMAL RANGE NORMAL 247 - 911 PG/ML INDETERMINATE 211 - 246 PG/ML DEFICIENT LESS THAN 211 PG/ML 12 NOTE: CBC VERIFIED 13 Lab Result Notes: Pre-Diabetes 5.7 - 6.4 % Diabetes = or > 6.5% 14 100-125 mg/dL PRE-DIABET ES/FASTING >126 mg/dL DIABETES/FASTING 15 CHRONIC KIDNEY DISEASE STAGI NG PER NKF STAGE I & II GFR >= 60 NORMAL TO MILDLY DECREASED STAGE III GFR 30-59 MODERATELY DECREASED STAGE IV GFR 15-29 SEVERELY DECREASED STAGE V GFR <15 VERY LITTLE GFR LEFT ESRD GFR <15 ON QUENCHER OPERATOR Procedures Date Code Description Status 08/23/2021 11984 EKG/Interpretation & Report Comp leted 08/23/2021 03416 Office/Outpatient Established Lo w MDM 20-29 Min Completed 07/05/2021 98599 Office/Outpatient Established Lo w MDM 20-29 Min Completed 06/06/2021 12855 Chronic Care MGMT 20 Mins Clinical Staff Time Per Calendar Month Completed 04/27/2021 64849 Chronic Care MGMT 20 Mins Clinical Staff Time Per Calendar Month Completed 04/27/2021 62456 Chronic Care Management Services Ea Addl 20 Min Completed 03/30/2021 73538 Office/Outpatient Established Mo d MDM 30-39 Min Completed 03/22/2021 16278 Chronic Care MGMT 20 Mins Clinical Staff Time Per Calendar Month Completed 12/13/2020 [id number] Diabetic Retinal Eye Exam [facility] 05/09/2020 [id number] Bone Mineral Density Test [facility] 05/09/2020 [id number] Mammogram Completed 07/29/2019 413864807 Diabetic Retinal Eye Exam Comple [facility] 12/02/2017 [id number] Bone Mineral Density Test [facility] 12/02/2017 68349969 Mammogram Completed 09/26/2016 [id number] Mammogram Completed 05/09/2016 34755578 Mammogram Completed 03/14/2014 10202985 Mammogram Completed 11/08/2011 01995829 Mammogram Completed 11/08/2011 956099263 Bone Mineral Density Test Comple [facility] 10/05/2010 051495105 Diabetic Foot Exam Completed 08/22/2010 53839309 Mammogram Completed 09/14/2008 762749487 Bone Mineral Density Test [facility] 07/31/2006 62232368 Mammogram Completed Medical Devices Description No Information Available Encounters Type Date Location Provider Dx Diagnosis Office Visit 08/23/2021 2:00p [facility] Kathleen Garcia ne, INSURANCE OFFICE MANAGER R07.9 Chest pain, unspecified Z23 Encounter for immunization Office Visit 07/05/2021 10:20a [facility] 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 E78.2 Mixed hyperlipidemia Z93.2 Ileostomy status Assessments Date Code Description Provider 08/23/2021 R07.9 Chest pain, unspecified Kathleen Pascal [facility] 08/23/2021 Z23 Encounter for immunization Kathleen Yip, [facility] 07/05/2021 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 Kathleen Gaming [facility] 07/05/2021 N18.31 Chronic kidney disease, stage 3a Kathleen Gaming [facility] 07/05/2021 K21.9 Gastro-esophageal reflux disease without esophagitis Kathleen Gaming [facility] 07/05/2021 E55.9 Vitamin D deficiency, unspecifie d Kathleen Gaming [facility] 07/05/2021 F41.9 Anxiety disorder, unspecified An n Viola Yip [facility] 07/05/2021 D50.9 Iron deficiency anemia, unspecif ied Kathleen Gaming, [facility] 07/05/2021 K50.918 Crohn's disease, unspecified, wi th other complication Kathleen Gaming, [facility] 07/05/2021 Z93.2 Ileostomy status Kathleen Gaming, [facility] 07/05/2021 M85.80 Other specified disorders of bon e density and structure, uns Kathleen Gaming, [facility] 07/05/2021 E78.1 Pure hyperglyceridemia Kathleen Ferris, [facility] 06/06/2021 E11.9 Type 2 diabetes mellitus without complications Dc Chavez MD 06/06/2021 K21.9 Gastro-esophageal reflux disease without esophagitis Dc Chavez MD 06/06/2021 E55.9 Vitamin D deficiency, unspecifie d Dc Chavez MD 04/27/2021 N18.31 Chronic kidney disease, stage 3a Dc Chavez MD 04/27/2021 K21.9 Gastro-esophageal reflux disease without esophagitis Dc Chavez MD 04/27/2021 E78.00 Pure hypercholesterolemia, unspe cified Dc Chavez MD 03/30/2021 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 Kathleen Gaming, [facility] 03/30/2021 N18.31 Chronic kidney disease, stage 3a Kathleen Gaming, [facility] 03/30/2021 D69.6 Thrombocytopenia, unspecified An n Viola Vermilion, [facility] 03/30/2021 K21.9 Gastro-esophageal reflux disease without esophagitis Kathleen Viola [place]ilion, [facility] 03/30/2021 E78.00 Pure hypercholesterolemia, unspe cified Kathleen Viola [place]ilion, [facility] 03/30/2021 E55.9 Vitamin D deficiency, unspecifie d Kathleen Rod [place], [facility] 03/30/2021 F41.9 Anxiety disorder, unspecified An n Viola Yip, [facility] 03/30/2021 D50.9 Iron deficiency anemia, unspecif ied Kathleen Gaming, [facility] 03/30/2021 K50.918 Crohn's disease, unspecified, wi th other complication Kathleen Viola Yip, [facility] 03/30/2021 N95.2 Postmenopausal atrophic vaginiti s Kathleen Viola Yip, [facility] 03/30/2021 E78.2 Mixed hyperlipidemia JOHN Mcneill 03/30/2021 Z93.2 Ileostomy status SCARLET Mcneill 03/22/2021 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 * 03/28/2022 9:00 am - Nurse #2 at [facility] * 03/28/2022 9:20 am - JOHN Mcneill at [facility] 08/23/2021 - JOHN Mcneill* R07.9 Chest pain, unspecified* Comments:* non anginal sign - prolonged pain without evidence of OH on EKG.She will have ma mmogram. * Z23 Encounter for immunization Functional Status Description No Information Available Mental Status Description No Information Available Referrals Refer to Reason for Referral Status Appt Date [facility] Hematology/Oncology CONTENT ENGINEER CONSULT FOR ELEVATED PLATELETS Tawnyacharles shashank Notified 05/09/2021 [address] [place] [address] [phone]
--- OUTSIDE RECORDS SUMMARY | 2021-09-20 07:57 | CCD | Continuity of Care Document ---
Author Author Nayely Mcneill Organization Unknown Address [address] [address] Phone [phone] Care Team Providers Care Farm Machine Tender Name Role Phone Tray Triplett MD AUTM [phone] Kathleen Estes ANP AUTM [phone] Ruiz Wan MD AUTM [phone] Problems Active Problems Provider Date Pulmonary embolism [...] 1 ANUPAM A DAY quit age 37 Allergies, Adverse Reactions, Alerts Active Allergies Criticality Reaction | Severity Comments [...] three times a week 42.500gm Kathleen Gaming [facility] 03/30/2021 Lutein 20mg Capsules 1 by mouth every day Kathleen Gaming [facility] 02/01/2021 Lisinopril 2.5mg Tablets 1 by mouth every day 90tabs E11.21 [facility] Calcium + D 1200MG/D Mercedes Russell M.D. 10/04/2019 Bupropion Hydrochloride ER (XL) 150mg Tablets ER 24HR take 1 tablet by mouth once daily 90tabs Kathleen Gaming [facility] 09/07/2019 Fluticasone Propionate 50mcg/Act Suspension 2 sprays each nostril daily X 2 Weeks Then prn 16gm [facility] 05/18/2019 Fortify Probiotic Womens Extra Strength Capsules Cecilia Scott,[facility] 10/23/20 18 Buspirone HCL 15mg Tablets Take 1 Tablet By Mouth Twice Daily 180tabs Kathleen Gaming [facility] 05/29/2018 Vitamin D 1000Unit Tablets 2 by mouth every day Randa Burden, [facility] 8 Huddler Ultra Blue Strips use twice daily to check blood sugar dx e11.9 200units [facility] 09/03/2017 Melatonin 10mg Tablets 1 hs p o [facility] 09/24/2016 Metformin HCL ER 500mg Tablets ER 24HR take 2 tablets by mouth once daily with the largest meal of the day 180tabs Kathleen Gaming [facility] 09/24/2016 Aspirin Childrens 81mg Chewtabs 1 by mouth every hs [facility] 09/24/2016 Loperamide HCL 2mg Capsules 4 capsules at bedtime by mouth may take additional 4 capsules in daytime - not to exceed 16mg daily 240caps Kathleen Gaming [facility] 09/24/2016 Ferrous Sulfate 325(65Fe) mg Table ts DR 1 by mouth every day [facility] 6 Womens One Daily Tablets 1 by mouth every day Randa Burden, [facility] 6 Atorvastatin Calcium 20mg Tablets Take 1 Tablet By Mouth Every Day 90tabs Kathleen Gaming [facility] 08/[address] take 1 capsule by mouth twice daily. maximum daily dose is 2 180caps An n Viola Yip, [employer] 11/22/2010 Similasan Earache Relief Solution Unknown Minong-3 Drops For Eyes Unknown Budesonide 3mg Caps DR Part 3 tabs daily before dinner for four weeks, then 2 tabs daily for four weeks, then 1 tab daily for remaining four weeks- Dr. Wan's Unknow n Stelara 90mg/ml Soln Prefill Syringe Unknown Medications Administered in Office Medication SIG Qnty Indications Ordering Provider Date Covid-19 vaccine, Unspecified Inj ection Unknown 12/28/2020 Covid-19 vaccine, Unspecified Inj ection Unknown 11/30/2020 Immunization Adminstration,1 Vaccine/Tox oid Injection Cecilia Whitaker,[employer] 04/11/20 20 Immunizations CPT Code Status Date Vaccine Reaction Lot # [id number] Given 08/23/2021 Influenza Vaccin e Quadrivalent Preser/Antibiotic Free Im Use [id number] Given 04/11/2020 Pneumovax 23 [id number] Given 04/11/2020 Adacel- Tetanus Diphtheria Pertussis [id number] U-Flu Given 09/26/2019 Influenza,Unspecified U-PneuC Given 06/07/2019 Prevnar 13 [id number] Given 06/07/2019 Shingrix Zoster Vaccine (HZV), Recombinant, Subunit, Adjuvanted 18163 Given 04/07/2019 Shingrix U-Flu Given 09/03/2018 Influenza,Unspecified [id number] Given 07/04/2017 PPD 0 mm read by Apolonia thao, URIEL [id number] Given 09/24/2016 Fluvirin Virus Vaccine 16 [id number] Given 09/02/2003 Pneumovax 23 Vital Signs Date Vital Result Comment 08/23/2021 2:09pm Heart Rate 98 /min Height 61.25 inches [...] H/L Range Note Laboratory test finding 06/28/2021 [facility] [address] [place] [address] [phone] Erythrocyte Sedimentation Rate 39 mm/hr High 0 -30 Liver Profile 06/28/2021 [facility] nter [address] [place] [address] [phone] Ast/Sgot 20 U/L Normal 7-37 Alt/SGPT 30 U/L Normal 12-78 Alkaline Phosphatase 95 U/L Normal 45-117 Bilirubin,Total 0.4 mg/dL Normal 0.2-1.0 Bilirubin,Direct 0.1 mg/dL Normal 0.0-0.2 Total Protein 6.9 GM/DL Normal 6.4-8.2 Albumin 3.3 GM/DL Normal 3.2-5.2 Albumin/Globulin Ratio 0.9 Low 1.2-2.2 Basic Metabolic Profile 06/28/[address] [address] [phone] Glucose, Fasting 126 mg/dL High 70-100 Blood [...] Normal 8.8-10.2 Total Iron Binding Capacit 06/28/2021 [facility] [address] [place] [address] [phone] Iron (Fe) 33 g/dL Low 50-170 Total Iron Binding Capacity 424 g/dL Normal 250-450 Percent Saturation 7.8 % Low 13.2-45.0 Vitamin B12 & Folate 06/28/[address] [address] [phone] Vitamin B12 Level 598 pg/mL Normal 2 Folate > 24.0 NG/ML Normal 3 Laboratory test finding 06/28/[address] [address] [phone] C Reactive Protein Quantitativ 0.64 mg/dL High 0 .00-0.30 Fat Fecal Qualitative 06/28/[address] [address] [phone] Fats Neutral Normal Normal . 4 Fats Total Normal Normal . 5 Laboratory test finding 06/28/[address] [address] [phone] Pancreatic Elastase Stool TNP Normal 6 Calprotectin Stool 40 ug/g Normal 0-120 7 CBC With Differential 06/28/[address] [address] [phone] White Blood Count 10.4 10 High 4.0-10.0 [...] 36.0-66.0 Lymph % 21.9 % Low 24.0-44.0 [place] % 8.1 % High 2.0-8.0 Eos % 0.7 % Normal 0.0-3.0 Baso % 0.6 % Normal 0.0-1.0 Immature Granulocyte % 0.5 % Normal 0-3.0 Nucleated Red Blood Cell % 0.0 % Normal 0-0 Neutrophils # 7.1 10 Normal 1.5-8.5 Lymph # 2.3 10 Normal 1.5-5.0 [place] # 0.9 10 High 0.0-0.8 Eos # 0.1 10 Normal 0.0-0.5 Baso # 0.1 10 Normal 0.0-0.2 Total Iron Binding Capacit 05/09/[address] [address] [phone] Iron (Fe) 139 g/dL Normal 50-170 Total Iron Binding Capacity 494 g/dL High 250-450 Percent Saturation 28.1 % Normal 13.2-45.0 Laboratory test finding 05/09/[address] [address] [phone] Jak2 Mutations For Path Sendou See Pathology Re <SEE NOTE> Normal 8 BCR/Abl Screen For CML Path 05/09/[address] [address] [phone] BCR/Abl Screen For CML Path So See Pathology Re <SEE NOTE> Normal 9 Laboratory test finding 05/09/[address] [address] [phone] Vitamin B12 Level 580 pg/mL Normal 247-911 10 Ferritin 19 NG/ML Normal 8-252 Comprehensive Metabolic Profil 05/09/[address] [address] [phone] Glucose, Fasting 121 mg/dL High 70-100 Blood Urea Nitrogen 27 mg/dL High 7-18 Creatinine For GFR 1.00 mg/dL Normal 0.55-1.30 Glomerular Filtration Rate 58.9 Normal >45 1 1 Sodium Level 137 mEq/L Normal 136-145 Potassium [...] Normal 3.2-5.2 Albumin/Globulin Ratio 0.8 Low 1.2-2.2 CBC With Differential 05/09/2021 [facility] [address] [place], [place] [address] [phone] White Blood Count 15.0 10 High 4.0-10.0 [...] 36.0-66.0 Lymph % 5.4 % Low 24.0-44.0 [place] % 0.7 % Low 2.0-8.0 Eos % 0.0 % Normal 0.0-3.0 Baso % 0.1 % Normal 0.0-1.0 Immature Granulocyte % 1.3 % Normal 0-3.0 Nucleated Red Blood Cell % 0.0 % Normal 0-0 Neutrophils # 13.9 10 High 1.5-8.5 Lymph # 0.8 10 Low 1.5-5.0 [place] # 0.1 10 Normal 0.0-0.8 Eos # 0.0 10 Normal 0.0-0.5 Baso # 0.0 10 Normal 0.0-0.2 Complete Blood Count 03/30/2021 [facility] Cartridge Gauger: [place] [address] [phone] WBC 9.2 x10*3/UL 4.1 - 10.9 12 [...] 6.9 x10*3/UL 2.0 - 7.8 A1c 03/30/2021 [facility] Cartridge Gauger: Dr [place] [address] [phone] Hba1c 6.0 % High <5.7 13 Est Avg Glucose 125 mg/dL High 60 - 110 Comprehensive Chem Profile 03/30/2021 [facility]er: Dr [place]c [place] [address] [phone] Glucose 94 mg/dL 74 - 99 14 [...] 60 mL/min >60 15 Lipid Profile 03/30/2021 [facility] , Cartridge Gauger: Dr [place] [address] [phone] Cholesterol 143 mg/dL 131 - 200 Triglycerides 105 mg/dL 30 - 150 HDL Cholesterol 89 mg/dL High 35 - 60 LDL (Calculated) 33 CALC Low 50 - 159 Laboratory test finding 03/30/2021 [facility] david islas Cartridge Gauger: Dr Dc Chavez [place], [place] [address] [phone] Magnesium 1.9 mg/dL 1.8 - 2.4 Laboratory test finding 02/22/2021 [facility] [address] [place] [address] [phone] Blood Urea Nitrogen 16 mg/dL Normal 7-18 Creatinine With GFR 02/22/2021 [facility] nter [address] [place] [address] [phone] Creatinine For GFR 0.80 mg/dL Normal 0.55-1.30 Glomerular Filtration Rate > 60.0 Normal >45 1 6 1 Units are mL/min/1.73 m2 Chronic Kidney Disease Staging per NKF: Stage I & II GFR >=60 Normal to Mildly Decreased Stage III GFR 30-59 Moderately Decreased Stage IV GFR 15-29 Severely Decreased Stage V GFR <15 Very Little GFR Left ESRD GFR <15 on MOTION PICTURE OPERATOR 2 VITAMIN B12 NORMAL RANGE NORMAL 247 - 911 PG/ML INDETERMINATE 211 - 246 PG/ML DEFICIENT LESS THAN 211 PG/ML 3 FOLATE NORMAL RANGE NORMAL GREATER THAN 5.4 NG/ML INDETERMINATE 3.4-5.4 NG/ML DEFICIENT LESS THAN 3.4 NG/ML 4 Normal (<60 Droplets/HPF) 5 Normal (<100 Droplets/HPF) 6 Test not performed. Consiste ncy of stool specimen too watery for analysis. TEST: [id number] Pancreatic Elastase, Fecal Testing performed at reference lab . Report copy to follow on a separate form. 07/10/21 REF LAB#:[id number] Concentration Interpreta tion Follow-Up <16 - 50 ug/g Normal None >50 -120 ug/g Borderline Re-evaluate in 4-6 weeks >120 ug/g Abnormal Repeat as clinically indicated 8 See Pathology Report Specimen Collection for Pathology Reference Lab Testing. Refer to [facility] Pathology Report for Results: [id number] See Pathology Report Specimen Collection for Pathology Reference Lab Testing. Refer to [facility] Pathology Report for Results:[id number] VITAMIN B12 NORMAL RANGE NORMAL 247 - 911 PG/ML INDETERMINATE 211 - 246 PG/ML DEFICIENT LESS THAN 211 PG/ML 11 Units are mL/min/1.73 m2 Chronic Kidney Disease Staging per NKF: Stage I & II GFR >=60 Normal to Mildly Decreased Stage III GFR 30-59 Moderately Decreased Stage IV GFR 15-29 Severely Decreased Stage V GFR <15 Very Little GFR Left ESRD GFR <15 on MOTION PICTURE OPERATOR 12 NOTE: CBC VERIFIED 13 Lab Result [...] LITTLE GFR LEFT ESRD GFR <15 ON MOTION PICTURE OPERATOR 16 Units are mL/min/1.73 m2 Chronic Kidney Disease Staging per NKF: Stage I & II GFR >=60 Normal to Mildly Decreased Stage III GFR 30-59 Moderately Decreased Stage IV GFR 15-29 Severely Decreased Stage V GFR <15 Very Little GFR Left ESRD GFR <15 on MOTION PICTURE OPERATOR Procedures Date Code Description Status 07/05/2021 18528 Office/Outpatient Established Lo w MDM 20-29 Min Completed 06/06/2021 92082 Chronic Care MGMT 20 Mins Clinical Staff Time Per Calendar Month Completed 04/27/2021 02532 Chronic Care MGMT 20 Mins Clinical Staff Time Per Calendar Month Completed 04/27/2021 71085 Chronic Care Management Services Ea Addl 20 Min Completed 03/30/2021 52656 Office/Outpatient Established Mo d MDM 30-39 Min Completed 03/22/2021 17284 Chronic Care MGMT 20 Mins Clinical Staff Time Per Calendar Month Completed 12/13/2020 886396315 Diabetic Retinal Eye Exam Comple [facility] 05/09/2020 266720063 Bone Mineral Density Test Comple [facility] 05/09/2020 48051403 Mammogram Completed 07/29/2019 596608814 Diabetic Retinal Eye Exam Comple [facility] 12/02/2017 909579385 Bone Mineral Density Test Comple [facility] 12/02/2017 41440658 Mammogram Completed 09/26/2016 17219166 Mammogram Completed 05/09/2016 80159948 Mammogram Completed 03/14/2014 67009097 Mammogram Completed 11/08/2011 86151597 Mammogram Completed 11/08/2011 532521299 Bone Mineral Density Test Comple [facility] 10/05/2010 813712757 Diabetic Foot Exam Completed 08/22/2010 59572644 Mammogram Completed 09/14/2008 537806996 Bone Mineral Density Test Comple [facility] 07/31/2006 16439022 Mammogram Completed Medical Devices Description No Information Available Encounters Type Date Location Provider Dx Diagnosis Office Visit 07/05/2021 10:20a [facility] Kathleen Ferris, [facility] E11.21 Type 2 diabetes mellitus with [...] E78.1 Pure hyperglyceridemia Office Visit 03/30/2021 9:00a [facility] 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 JOHN Mcneill 07/05/2021 N18.31 Chronic kidney disease, stage 3a JOHN Mcneill 07/05/2021 K21.9 Gastro-esophageal reflux disease without esophagitis JOHN Mcneill 07/05/2021 E55.9 Vitamin D deficiency, unspecifie d JOHN Mcneill 07/05/2021 F41.9 Anxiety disorder, unspecified An n Viola Yip, [facility] 07/05/2021 D50.9 Iron deficiency anemia, unspecif ied Kathleen Gaming, [facility] 07/05/2021 K50.918 Crohn's disease, unspecified, wi th other complication Kathleen Gaming, [facility] 07/05/2021 Z93.2 Ileostomy status Kathleen Gaming, [facility] 07/05/2021 M85.80 Other specified disorders of bon e density and structure, uns Kathleen Gaming, [facility] 07/05/2021 E78.1 Pure hyperglyceridemia Kathleen Ferris, [facility] 06/06/2021 E11.9 Type 2 diabetes mellitus [...] diabetes mellitus with di abetic nephropathy Kathleen Rod Theodora, [facility] 03/30/2021 N18.31 Chronic kidney disease, stage 3a Kathleen Rod Theodora, [facility] 03/30/2021 D69.6 Thrombocytopenia, unspecified An n Viola Yip, [facility] 03/30/2021 K21.9 Gastro-esophageal reflux disease without esophagitis Kathleen Gaming, [facility] 03/30/2021 E78.00 Pure hypercholesterolemia, unspe cified Kathleen Gaming, [facility] 03/30/2021 E55.9 Vitamin D deficiency, unspecifie d Kathleen Gaming, [facility] 03/30/2021 F41.9 Anxiety disorder, unspecified An n Viola Yip, [facility] 03/30/2021 D50.9 Iron deficiency anemia, unspecif ied Kathleen Gaming, [facility] 03/30/2021 K50.918 Crohn's disease, unspecified, wi th other complication Kathleen Gaming, [facility] 03/30/2021 N95.2 Postmenopausal atrophic vaginiti s Kathleen Gaming, JOHN 03/30/2021 E78.2 Mixed hyperlipidemia JOHN Mcneill 03/30/2021 [...] 10/05/2021 8:00 am - JOHN Mcneill at [facility] * 03/28/2022 9:00 am - [facility] * 03/28/2022 9:20 am - JOHN Mcneill at [facility] Functional Status Description No Information Available Mental Status Description No Information Available Referrals Refer to Dr Reason for Referral Status Appt Date [facility] Hematology/Oncology VACUUM DRIER TENDER CONSULT FOR ELEVATED PLATELETS Misty encarnacion Notified 05/09/2021 [address] [place] [address] [phone]
--- OUTSIDE RECORDS SUMMARY | 2021-09-20 07:57 | CCD ---
Author Author [facility] Organization [facility] Address Unknown Phone Unavailable Care Team Providers Care Event Attendant Name Role Phone Octavio Matson Unavailable PROBLEMS Type Condition ICD9-CM Code [id number] Code Onset Dates Condition S tatus W/U Status Risk SNOMED Code Notes Problem Colostomy care Z43.3 Active confirmed 44898 2008 ALLERGIES Allergen (clinical drug ingredient) Drug/Non Drug Allergy do cumented on EMR Reaction Allergy Type Onset Date Status tetracycline Tetracycline Rash Drug Allergy Active ENCOUNTERS from 1955 to 2021-09-12 Encounter Location Date Provider Diagnosis [facility] [address] [facility] [phone] [place] [address] Aug, Octavio Matson IMMUNIZATIONS No Information SOCIAL HISTORY Tobacco Use: Social History Observation Description Date Details (start date - stop date) Never Smoker Sex Assigned At : Social History Observation Description Sex Assigned At Unknown Education: Question Answer Notes Level of Education: High School Language: Question Answer Notes Languages spoken: Yoruba Advent: Question Answer Notes Advent No sabianist beliefs that would impact health care. Alcohol [...] Information RESULTS No Results REASON FOR VISIT Cx WCC Apt. MEDICAL (GENERAL) HISTORY Type Description Date Medical History PE Medical History anxiety Medical History DM Medical History crohn's disease Medical History HTN Surgical History Hernia Surgical History Tubal ligation Surgical History Tonsillectomy Surgical History Cholecystectomy Surgical History Colonoscopy 2009 Surgical History Ileosotmy 2006 Surgical History Cataract's Hospitalization History dehydration- [facility] Hospitalization History surgery related Goals Section No Information Health Concerns No Information MEDICAL EQUIPMENT No Information MENTAL STATUS No Information FUNCTIONAL STATUS No Information ASSESSMENTS No Information PLAN OF TREATMENT Next Appt Details Provider Name:Pretty Junior, 09-27 01:30:00 PM, [address] [facility], , [place], [address], Insurance Providers Payer Name Payer Address Payer Phone Insured Name Patient Relati onship to Insured Coverage Start Date Coverage End Date [facility] [employer] [address] [address] [facility] [address] [place]ANE[place] [id number] MEDICARE Part A and B [address] [facility] [address] [phone] SUN IBANEZ self
--- OUTSIDE RECORDS SUMMARY | 2021-09-20 07:57 | CCD | Continuity of Care Document ---
Author Author Nayely Russell M.D. Organization Unknown Address [address] [address] Phone [phone] Care Team Providers Care Optical Worker Name Role Phone Tray Triplett MD AUTM [phone] Kathleen Estes ANP AUTM [phone] Ruiz Wan MD AUTM [phone] Problems Active Problems Provider Date Pulmonary embolism [...] three times a week 42.500gm Kathleen Gaming [facility] 03/30/2021 Lutein 20mg Capsules 1 by mouth every day Kathleen Gaming [facility] 02/01/2021 Lisinopril 2.5mg Tablets 1 by mouth every day 90tabs E11.21 [facility] 10/04[facility]2020 Calcium + D 1200MG/D Mercedes Russell M.D. 10/04/2019 Bupropion Hydrochloride ER (XL) 150mg Tablets ER 24HR take 1 tablet by mouth once daily 90tabs Kathleen Gaming [facility] 09/07/2019 Fluticasone Propionate 50mcg/Act Suspension 2 sprays each nostril daily X 2 Weeks Then prn 16gm [facility] 05/18/2019 Fortify Probiotic Womens Extra Strength Capsules Cecilia Scott,[facility] 10/23/20 18 Buspirone HCL 15mg Tablets Take 1 Tablet By Mouth Twice Daily 180tabs Kathleen Gaming [facility] 05/29/2018 Vitamin D 1000Unit Tablets 2 by mouth every day Randa Burden, [facility] 8 [employer] Ultra Blue Strips use twice daily to check blood sugar dx e11.9 200units [facility] 09/03/2017 Melatonin 10mg Tablets 1 hs p o [facility] 09/24/2016 Metformin HCL ER 500mg Tablets ER 24HR take 2 tablets by mouth once daily with the largest meal of the day 180tabs Kathleen Gaming [facility] 09/24/2016 Aspirin Childrens 81mg Chewtabs 1 by mouth every hs [facility] 09/24/2016 Loperamide HCL 2mg Capsules 4 capsules at bedtime by mouth may take additional 4 capsules in daytime - not to exceed 16mg daily 240caps Kathleen Gaming [facility] 09/24/2016 Ferrous Sulfate 325(65Fe) mg Table ts DR 1 by mouth every day [facility] 6 Womens One Daily Tablets 1 by mouth every day Randa Burden, [facility] 6 Atorvastatin Calcium 20mg Tablets Take 1 Tablet By Mouth Every Day 90tabs Kathleen Gaming [facility] 08/[address] take 1 capsule by mouth twice daily. maximum daily dose is 2 180caps An n Viola Yip, [facility] 11/22/2010 Similasan Earache Relief Solution Unknown Williams-3 Drops For Eyes Unknown Budesonide 3mg Caps DR Part 3 tabs daily before dinner for four weeks, then 2 tabs daily for four weeks, then 1 tab daily for remaining four weeks- Dr. Wan's Unknow n Stelara 90mg/ml Soln Prefill Syringe Unknown Medications Administered in Office Medication SIG Qnty Indications Ordering Provider Date Administration Of Flu Vaccine Inj ection Kathleen Viola Theodora, [facility] 08/23/2021 Covid-19 vaccine, Unspecified Inj ection Unknown 12/28/2020 Covid-19 vaccine, Unspecified Inj ection Unknown 11/30/2020 Immunization Adminstration,1 Vaccine/Tox oid Injection Cecilia Whitaker,[facility] 04/11/20 20 Immunizations CPT Code Status Date Vaccine Reaction Lot # [id number] Given 08/23/2021 Influenza Vaccin e Quadrivalent Preser/Antibiotic Free Im Use [id number] Given 04/11/2020 Pneumovax 23 [id number] Given 04/11/2020 Adacel- Tetanus Diphtheria Pertussis [id number] U-Flu Given 09/26/2019 Influenza,Unspecified U-PneuC Given 06/07/2019 Prevnar 13 73802 Given 06/07/2019 Shingrix Zoster Vaccine (HZV), Recombinant, Subunit, Adjuvanted 78161 Given 04/07/2019 Shingrix U-Flu Given 09/03/2018 Influenza,Unspecified 54418 Given 07/04/2017 PPD 0 mm read by Apolonia thao, URIEL [id number] Given 09/24/2016 Fluvirin Virus Vaccine 16 [id number] 91524 Given 09/02/2003 Pneumovax 23 Vital Signs Date [...] Date Facility Test Result H/L Range Note Coronavirus 2019 Nasopharygeal 09/15/[address] [address] [phone] Coronavirus 2019 Nasopharygeal ASSAY INFORMATIO <SEE N OTE> 1 CBC With Differential 06/28/[address] [address] [phone] White Blood Count 10.4 10 High 4.0-10.0 [...] 36.0-66.0 Lymph % 21.9 % Low 24.0-44.0 Pettis % 8.1 % High 2.0-8.0 Eos % 0.7 % Normal 0.0-3.0 Baso % 0.6 % Normal 0.0-1.0 Immature Granulocyte % 0.5 % Normal 0-3.0 Nucleated Red Blood Cell % 0.0 % Normal 0-0 Neutrophils # 7.1 10 Normal 1.5-8.5 Lymph # 2.3 10 Normal 1.5-5.0 Pettis # 0.9 10 High 0.0-0.8 Eos # 0.1 10 Normal 0.0-0.5 Baso # 0.1 10 Normal 0.0-0.2 Laboratory test finding 06/28/[address] [address] [phone] Erythrocyte Sedimentation Rate 39 mm/hr High 0 -30 Liver Profile 06/28/2021 [facility] nter [address] [place] [address] [phone] Ast/Sgot 20 U/L Normal 7-37 Alt/SGPT 30 U/L Normal 12-78 Alkaline Phosphatase 95 U/L Normal 45-117 Bilirubin,Total 0.4 mg/dL Normal 0.2-1.0 Bilirubin,Direct 0.1 mg/dL Normal 0.0-0.2 Total Protein 6.9 GM/DL Normal 6.4-8.2 Albumin 3.3 GM/DL Normal 3.2-5.2 Albumin/Globulin Ratio 0.9 Low 1.2-2.2 Basic Metabolic Profile 06/28/[address] [address] [phone] Glucose, Fasting 126 mg/dL High 70-100 Blood Urea Nitrogen 13 mg/dL Normal 7-18 Creatinine For GFR 0.84 mg/dL Normal 0.55-1.30 Glomerular Filtration Rate > 60.0 Normal >45 2 Sodium Level 140 mEq/L Normal 136-145 Potassium Serum 4.4 mEq/L Normal 3.5-5.1 Chloride Level 106 mEq/L Normal 98-107 Carbon Dioxide Level 28 mEq/L Normal 21-32 Anion Gap 6 mEq/L Low 8-16 Calcium Level 9.6 mg/dL Normal 8.8-10.2 Total Iron Binding Capacit 06/28/2021 [facility] [address] [place] [address] [phone] Iron (Fe) 33 g/dL Low 50-170 Total Iron Binding Capacity 424 g/dL Normal 250-450 Percent Saturation 7.8 % Low 13.2-45.0 Vitamin B12 & Folate 06/28/2021 [facility] enter [address] [place] [address] [phone] Vitamin B12 Level 598 pg/mL Normal 3 Folate > 24.0 NG/ML Normal 4 Laboratory test finding 06/28/[address] [address] [phone] C Reactive Protein Quantitativ 0.64 mg/dL High 0 .00-0.30 Fat Fecal Qualitative 06/28/[address] [address] [phone] Fats Neutral Normal Normal . 5 Fats Total Normal Normal . 6 Laboratory test finding 06/28/[address] [address] [phone] Pancreatic Elastase Stool TNP Normal 7 Calprotectin Stool 40 ug/g Normal 0-120 8 CBC With Differential 05/09/[address] [address] [phone] White Blood Count 15.0 10 High 4.0-10.0 [...] 36.0-66.0 Lymph % 5.4 % Low 24.0-44.0 Pettis % 0.7 % Low 2.0-8.0 Eos % 0.0 % Normal 0.0-3.0 Baso % 0.1 % Normal 0.0-1.0 Immature Granulocyte % 1.3 % Normal 0-3.0 Nucleated Red Blood Cell % 0.0 % Normal 0-0 Neutrophils # 13.9 10 High 1.5-8.5 Lymph # 0.8 10 Low 1.5-5.0 Pettis # 0.1 10 Normal 0.0-0.8 Eos # 0.0 10 Normal 0.0-0.5 Baso # 0.0 10 Normal 0.0-0.2 Laboratory test finding 05/09/[address] [address] [phone] Jak2 Mutations For Path Sendou See Pathology Re <SEE NOTE> Normal 9 BCR/Abl Screen For CML Path 05/09/[address] [address] [phone] BCR/Abl Screen For CML Path So See Pathology Re <SEE NOTE> Normal 10 Laboratory test finding 05/09/[address] [id number] [phone] Vitamin B12 Level 580 pg/mL Normal 247-911 11 Ferritin 19 NG/ML Normal 8-252 Total Iron Binding Capacit 05/09/[address] [address] [phone] Iron (Fe) 139 g/dL Normal 50-170 Total Iron Binding Capacity 494 g/dL High 250-450 Percent Saturation 28.1 % Normal 13.2-45.0 Comprehensive Metabolic Profil 05/09/[address] [address] [phone] Glucose, Fasting 121 mg/dL High 70-100 Blood Urea Nitrogen 27 mg/dL High 7-18 Creatinine For GFR 1.00 mg/dL Normal 0.55-1.30 Glomerular Filtration Rate 58.9 Normal >45 1 2 Sodium Level 137 mEq/L Normal 136-145 Potassium [...] Normal 3.2-5.2 Albumin/Globulin Ratio 0.8 Low 1.2-2.2 Complete Blood Count 03/30/2021 [facility]ocate: [place] [address] [phone] WBC 9.2 x10*3/UL 4.1 - 10.9 13 RBC 4.37 x10*6/UL 4.20 - 6.30 Hemoglobin [...] 6.9 x10*3/UL 2.0 - 7.8 A1c 03/30/2021 [facility] Health Advocate: Dr Dc Chavez [place], [place] [address] [phone] Hba1c 6.0 % High <5.7 14 Est Avg Glucose 125 mg/dL High 60 - 110 Comprehensive Chem Profile 03/30/2021 [facility]ocate: Dr Dc Chavez [place], [place] [id number] [phone] Glucose 94 mg/dL 74 - 99 15 BUN 19 mg/dL High 7 - 18 [...] Low >60 GFR >= 60 mL/min >60 16 Lipid Profile 03/30/2021 [facility]: [place] [address] [phone] Cholesterol 143 mg/dL 131 - 200 Triglycerides 105 mg/dL 30 - 150 HDL Cholesterol 89 mg/dL High 35 - 60 LDL (Calculated) 33 CALC Low 50 - 159 Laboratory test finding 03/30/2021 [facility]ocate: [place] [address] [phone] Magnesium 1.9 mg/dL 1.8 - 2.4 1 ASSAY INFORMATION: Real Time RT-PCR NOTE: The COVID-19 assay has been cleared by the U.S. Food and Drug Administration under the Emergency Use Authorization (EUA). [facility] [facility] and [facility] are designated as high complexity laboratories by the Clinical Laboratory Improvement Amendments of 1988(CLIA) and are qualified to perform this test. Not Detected 2 Units are mL/min/1.73 m2 Chronic Kidney Disease Staging per NKF: Stage I & II GFR >=60 Normal to Mildly Decreased Stage III GFR 30-59 Moderately Decreased Stage IV GFR 15-29 Severely Decreased Stage V GFR <15 Very Little GFR Left ESRD GFR <15 on FLOOR COVERING LAYER 3 VITAMIN B12 NORMAL RANGE NORMAL 247 - 911 PG/ML INDETERMINATE 211 - 246 PG/ML DEFICIENT LESS THAN 211 PG/ML 4 FOLATE NORMAL RANGE NORMAL GREATER THAN 5.4 NG/ML INDETERMINATE 3.4-5.4 NG/ML DEFICIENT LESS THAN 3.4 NG/ML 5 Normal (<60 Droplets/HPF) 6 Normal (<100 Droplets/HPF) 7 Test not performed. Consiste ncy of stool specimen too watery for analysis. TEST: [id number] Pancreatic Elastase, Fecal Testing performed at reference lab . Report copy to follow on a separate form. 07/10/21 REF LAB#:[id number] Concentration Interpreta tion Follow-Up <16 - 50 ug/g Normal None >50 -120 ug/g Borderline Re-evaluate in 4-6 weeks >120 ug/g Abnormal Repeat as clinically indicated 9 See Pathology Report Specimen Collection for Pathology Reference Lab Testing. Refer to [facility] Pathology Report for Results: [id number] 10 See Pathology Report Specimen Collection for Pathology Reference Lab Testing. Refer to [facility] Pathology Report for Results:[id number] VITAMIN B12 NORMAL RANGE NORMAL 247 - 911 PG/ML INDETERMINATE 211 - 246 PG/ML DEFICIENT LESS THAN 211 PG/ML 12 Units are mL/min/1.73 m2 Chronic Kidney Disease Staging per NKF: Stage I & II GFR >=60 Normal to Mildly Decreased Stage III GFR 30-59 Moderately Decreased Stage IV GFR 15-29 Severely Decreased Stage V GFR <15 Very Little GFR Left ESRD GFR <15 on FLOOR COVERING LAYER 13 NOTE: CBC VERIFIED 14 Lab Result Notes: Pre-Diabetes 5.7 - 6.4 % Diabetes = or > 6.5% 15 100-125 mg/dL PRE-DIABET ES/FASTING >126 mg/dL DIABETES/FASTING 16 CHRONIC KIDNEY DISEASE STAGI NG PER NKF STAGE I & II GFR >= 60 NORMAL TO MILDLY DECREASED STAGE III GFR 30-59 MODERATELY DECREASED STAGE IV GFR 15-29 SEVERELY DECREASED STAGE V GFR <15 VERY LITTLE GFR LEFT ESRD GFR <15 ON FLOOR COVERING LAYER Procedures Date Code Description Status 08/23/2021 19250 EKG/Interpretation & Report Comp leted 08/23/2021 74066 Office/Outpatient Established Lo w MDM 20-29 Min Completed 08/10/2021 68871 Chronic Care MGMT 20 Mins Clinical Staff Time Per Calendar Month Completed 08/10/2021 89308 Chronic Care Management Services Ea Addl 20 Min Completed 07/05/2021 47323 Office/Outpatient Established Lo w MDM 20-29 Min Completed 06/06/2021 65060 Chronic Care MGMT 20 Mins Clinical Staff Time Per Calendar Month Completed 04/27/2021 07784 Chronic Care MGMT 20 Mins Clinical Staff Time Per Calendar Month Completed 04/27/2021 67858 Chronic Care Management Services Ea Addl 20 Min Completed 03/30/2021 14993 Office/Outpatient Established Mo d MDM 30-39 Min Completed 03/22/2021 74335 Chronic Care MGMT 20 Mins Clinical Staff Time Per Calendar Month Completed 12/13/2020 310065427 Diabetic Retinal Eye Exam Comple [facility] 05/09/2020 828783596 Bone Mineral Density Test Comple [facility] 05/09/2020 03627398 Mammogram Completed 07/29/2019 249726358 Diabetic Retinal Eye Exam Comple [facility] 12/02/2017 574410721 Bone Mineral Density Test Comple [facility] 12/02/2017 02759793 Mammogram Completed 09/26/2016 05446530 Mammogram Completed 05/09/2016 01175232 Mammogram Completed 03/14/2014 06698183 Mammogram Completed 11/08/2011 00853567 Mammogram Completed 11/08/2011 384712037 Bone Mineral Density Test Comple [facility] 10/05/2010 726939771 Diabetic Foot Exam Completed 08/22/2010 57274359 Mammogram Completed 09/14/2008 168639550 Bone Mineral Density Test Comple [facility] 07/31/2006 40708327 Mammogram Completed Medical Devices Description No Information Available Encounters Type Date Location Provider Dx Diagnosis Office Visit 08/23/2021 2:00p [facility] Kathleen Ferris, [employer] R07.9 Chest pain, unspecified Z23 Encounter for immunization Office Visit 07/05/2021 10:20a [facility] Kathleen Ferris, [employer] E11.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abetic [...] E78.1 Pure hyperglyceridemia Office Visit 03/30/2021 9:00a [facility] 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 Kathleen Gaming, [facility] 07/05/2021 N18.31 Chronic kidney disease, stage 3a Kathleen Gaming, [facility] 07/05/2021 K21.9 Gastro-esophageal reflux disease without esophagitis Kathleen Gaming, [facility] 07/05/2021 E55.9 Vitamin D deficiency, unspecifie d Kathleen Gaming, [facility] 07/05/2021 F41.9 Anxiety disorder, unspecified An cyril Gaming, [facility] 07/05/2021 D50.9 Iron deficiency anemia, unspecif ied Kathleen Gaming, [facility] 07/05/2021 K50.918 Crohn's disease, unspecified, wi th other complication Kathleen Gaming, [facility] 07/05/2021 Z93.2 Ileostomy status Kathleen Gaming [facility] 07/05/2021 M85.80 Other specified disorders of bon e density and structure, uns Kathleen Gaming, [facility] 07/05/2021 E78.1 Pure hyperglyceridemia Kathleen Ferris, [facility] 06/06/2021 E11.9 Type 2 diabetes mellitus without [...] diabetes mellitus with di abetic nephropathy Kathleen Viola Yip, [facility] 03/30/2021 N18.31 Chronic kidney disease, stage 3a Kathleen Viola Hall, [facility] 03/30/2021 D69.6 Thrombocytopenia, unspecified An n Viola Hall, [facility] 03/30/2021 K21.9 Gastro-esophageal reflux disease without esophagitis Kathleen Viola Hall, [facility] 03/30/2021 E78.00 Pure hypercholesterolemia, unspe cified Kathleen Rod Hall, [facility] 03/30/2021 E55.9 Vitamin D deficiency, unspecifie d Kathleen Viola Hall, [facility] 03/30/2021 F41.9 Anxiety disorder, unspecified An n Viola Hall, [facility] 03/30/2021 D50.9 Iron deficiency anemia, unspecif ied Kathleen Viola Yip, [facility] 03/30/2021 K50.918 Crohn's disease, unspecified, wi th other complication Kathleen Viola Yip, [facility] 03/30/2021 N95.2 Postmenopausal atrophic vaginiti s Kathleen Viola Hall, [facility] 03/30/2021 E78.2 Mixed hyperlipidemia Kathleen Viola Yip , [facility] 03/30/2021 Z93.2 Ileostomy status Kathleen Gaming, [facility] 03/22/2021 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 * 03/28/2022 9:00 am - Nurse #2 at [facility] * 03/28/2022 9:20 am - JOHN Mcneill at [facility] 08/23/2021 - Kathleen Le Hall, [employer]* R07.9 Chest pain, unspecified* Comments:* non anginal sign - prolonged pain without evidence of PA on EKG.She will have ma mmogram. * Z23 Encounter for immunization Functional Status Description No Information Available Mental Status Description No Information Available Referrals Refer to Reason for Referral Status Appt Date [facility] Hematology/Oncology [employer] CONSULT FOR ELEVATED PLATELETS Tawnyacharles shashank Notified 05/09/2021 [address] [id number] [phone]
--- OUTSIDE RECORDS SUMMARY | 2021-09-20 07:58 | CCD | Continuity of Care Document ---
Author Author Nayely Mcneill Organization Unknown Address [address] [address] Phone [phone] Care Team Providers Care Auto Accessories Installer Name Role Phone Tray Triplett MD AUTM [phone] Kathleen Estes ANP AUTM [phone] Ruiz Wan MD AUTM [phone] Problems Active Problems Provider Date Pulmonary embolism [...] 38 Allergies, Adverse Reactions, Alerts Active Allergies Reaction Severity Comments Date Tetracycline rash 11/13/2010 Medications Active Medications SIG Qnty [...] days then three times a week 42.500gm JOHN Mcneill 03/30/2021 Lutein 20mg Capsules 1 by mouth every day Kathleen Gaming [facility] 02/01/2021 Lisinopril 2.5mg Tablets 1 by mouth every day 90tabs E11.21 [facility] 10[facility]2020 Calcium + D 1200MG/D Mercedes Russell M.D. 10/04/2019 Bupropion Hydrochloride ER (XL) 150mg Tablets ER 24HR take 1 tablet by mouth once daily 90tabs Kathleen Gaming [facility] 09/07/2019 Fluticasone Propionate 50mcg/Act Suspension 2 sprays each nostril daily X 2 Weeks Then prn 16gm [facility] 05/18/2019 Fortify Probiotic Womens Extra Strength Capsules Cecilia Scott,[facility] 10/23/20 18 Buspirone HCL 15mg Tablets Take 1 Tablet By Mouth Twice Daily 180tabs Kathleen Gaming [facility] 05/29/2018 Vitamin D 1000Unit Tablets 2 by mouth every day [facility] 8 Onetouch Ultra Blue Strips use twice daily to check blood sugar dx e11.9 200units [facility] 09/03/2017 Womens One Daily Tablets 1 by mouth every day [facility] 6 Metformin HCL ER 500mg Tablets ER 24HR take 2 tablets by mouth once daily with the largest meal of the day 180tabs Kathleen Gaming [facility] 09/24/2016 Aspirin Childrens 81mg Chewtabs 1 by mouth every hs [facility] 09/24/2016 Loperamide HCL 2mg Capsules 4 capsules at bedtime by mouth may take additional 4 capsules in daytime - not to exceed 16mg daily 240caps Kathleen Gaming [facility] 09/24/2016 Ferrous Sulfate 325(65Fe) mg Table ts DR 1 by mouth every day [facility] 6 Melatonin 10mg Tablets 1 hs p o [facility] 09/24/2016 Atorvastatin Calcium 20mg Tablets Take 1 Tablet By Mouth Every Day 90tabs Kathleen Gaming [facility] 08/[address] take 1 capsule by mouth twice daily. maximum daily dose is 2 180caps An n Viola Yip, [employer]STET[employer]IC ANAESTHETIST 11/22/2010 Claritin 10mg Tablets 1 by mouth every day Unknown Similasan Earache Relief Solution Unknown [place]-3 Drops For Eyes Unknown Budesonide 3mg Caps DR Harini 3 tabs daily before dinner for four weeks, then 2 tabs daily for four weeks, then 1 tab daily for remaining four weeks- Dr. Wan's Unknow n Magnesium 300mg Capsules 1 by mouth every day Unknown Stelara 90mg/ml Soln Prefill Syringe Unknown Medications Administered in Office Medication SIG Qnty Indications Ordering Provider Date Covid-19 vaccine, Unspecified Inj ection Unknown 12/28/2020 Covid-19 vaccine, Unspecified Inj ection Unknown 11/30/2020 Immunization Adminstration,1 Vaccine/Tox oid Injection Cecilia Whitaker FNP 04/11/20 20 Immunizations CPT Code Status Date Vaccine Reaction Lot # [id number] Given 04/11/2020 Pneumovax 23 [id number] Given 04/11/2020 Adacel- Tetanus Diphtheria Pertussis (Age64 & Under) [id number] U-Flu Given 09/26/2019 Influenza,Unspecified U-PneuC Given 06/07/2019 Prevnar 13 06235 Given 06/07/2019 Shingrix Zoster Vaccine (HZV), Recombinant, Subunit, Adjuvanted 75029 Given 04/07/2019 Shingrix U-Flu Given 09/03/2018 Influenza,Unspecified 85026 Given 07/04/2017 PPD 0 mm read by Apolonia thao, URIEL [id number] Given 09/24/2016 Fluvirin Virus Vaccine 16 [id number] 07559 Given 09/02/2003 Pneumovax 23 Vital Signs Date Vital Result Comment 07/05/2021 10:32am BP Systolic 130 mmHg BP Diastolic 64 mmHg Heart Rate 88 /min Height 61.25 inches 5'1.25" Weight 125.00 lb O2 % BldC Oximetry 96 % BMI (Body Mass Index) 23.4 kg/m2 03/30/2021 8:40am BP Systolic 128 mmHg BP Diastolic 68 mmHg Heart Rate 74 /min Height 61.25 inches 5'1.25" Weight 118.50 lb O2 % BldC Oximetry 98 % RM Air BMI (Body Mass Index) 22.2 kg/m2 Results Test Acquired Date Facility Test Result H/L Range Note Laboratory test finding 06/28/2021 [facility] [address] [place] [address] [phone] Erythrocyte Sedimentation Rate 39 mm/hr High 0 -30 Liver Profile 06/28/2021 [facility] nter [address] [place] [address] [phone] Ast/Sgot 20 U/L Normal 7-37 Alt/SGPT 30 U/L Normal 12-78 Alkaline Phosphatase 95 U/L Normal 45-117 Bilirubin,Total 0.4 mg/dL Normal 0.2-1.0 Bilirubin,Direct 0.1 mg/dL Normal 0.0-0.2 Total Protein 6.9 GM/DL Normal 6.4-8.2 Albumin 3.3 GM/DL Normal 3.2-5.2 Albumin/Globulin Ratio 0.9 Low 1.2-2.2 Basic Metabolic Profile 06/28/[address] [address] [phone] Glucose, Fasting 126 mg/dL High 70-100 Blood [...] Normal 8.8-10.2 Total Iron Binding Capacit 06/28/[address] [address] [phone] Iron (Fe) 33 g/dL Low 50-170 Total Iron Binding Capacity 424 g/dL Normal 250-450 Percent Saturation 7.8 % Low 13.2-45.0 Vitamin B12 & Folate 06/28/[address] [place] [address] [phone] Vitamin B12 Level 598 pg/mL Normal 2 Folate > 24.0 NG/ML Normal 3 Laboratory test finding 06/28/2021 [facility] [address] [place] [address] [phone] C Reactive Protein Quantitativ 0.64 mg/dL High 0 .00-0.30 CBC With Differential 06/28/2021 [facility] [address] [place] [address] [phone] White Blood Count 10.4 10 High 4.0-10.0 [...] 36.0-66.0 Lymph % 21.9 % Low 24.0-44.0 [place] % 8.1 % High 2.0-8.0 Eos % 0.7 % Normal 0.0-3.0 Baso % 0.6 % Normal 0.0-1.0 Immature Granulocyte % 0.5 % Normal 0-3.0 Nucleated Red Blood Cell % 0.0 % Normal 0-0 Neutrophils # 7.1 10 Normal 1.5-8.5 Lymph # 2.3 10 Normal 1.5-5.0 [place] # 0.9 10 High 0.0-0.8 Eos # 0.1 10 Normal 0.0-0.5 Baso # 0.1 10 Normal 0.0-0.2 CBC With Differential 05/09/2021 [facility] [address] [place] [address] [phone] White Blood Count 15.0 10 High 4.0-10.0 [...] 36.0-66.0 Lymph % 5.4 % Low 24.0-44.0 [place] % 0.7 % Low 2.0-8.0 Eos % 0.0 % Normal 0.0-3.0 Baso % 0.1 % Normal 0.0-1.0 Immature Granulocyte % 1.3 % Normal 0-3.0 Nucleated Red Blood Cell % 0.0 % Normal 0-0 Neutrophils # 13.9 10 High 1.5-8.5 Lymph # 0.8 10 Low 1.5-5.0 [place] # 0.1 10 Normal 0.0-0.8 Eos # 0.0 10 Normal 0.0-0.5 Baso # 0.0 10 Normal 0.0-0.2 Comprehensive Metabolic Profil 05/09/2021 [place] [id number] [phone] Glucose, Fasting 121 mg/dL High 70-100 Blood Urea Nitrogen 27 mg/dL High 7-18 Creatinine For GFR 1.00 mg/dL Normal 0.55-1.30 Glomerular Filtration Rate 58.9 Normal >45 4 Sodium Level 137 mEq/L Normal 136-145 Potassium [...] Normal 3.2-5.2 Albumin/Globulin Ratio 0.8 Low 1.2-2.2 Total Iron Binding Capacit 05/09/2021 [facility] [address] [place] [address] [phone] Iron (Fe) 139 g/dL Normal 50-170 Total Iron Binding Capacity 494 g/dL High 250-450 Percent Saturation 28.1 % Normal 13.2-45.0 Laboratory test finding 05/09/2021 [facility] [address], [place] [id number] [phone] Vitamin B12 Level 580 pg/mL Normal 247-911 5 Ferritin 19 NG/ML Normal 8-252 BCR/Abl Screen For CML Path 05/09/[address] [id number] [phone] BCR/Abl Screen For CML Path So See Pathology Re <SEE NOTE> Normal 6 Laboratory test finding 05/09/2021 [place] [address] [place] [id number] [phone] Jak2 Mutations For Path Sendou See Pathology Re <SEE NOTE> Normal 7 A1c 03/30/2021 [facility] [place]: Dr Dc Chavez [place], [place] [id number] [phone] Hba1c 6.0 % High <5.7 8 Est Avg Glucose 125 mg/dL High 60 - 110 Laboratory test finding 03/30/2021 [facility] [place]: Dr Dc Chavez [place], [place] [id number] [phone] Magnesium 1.9 mg/dL 1.8 - 2.4 Lipid Profile 03/30/2021 [facility] [place]: Dr Dc Chavez [place], [place] [id number] [phone] Cholesterol 143 mg/dL 131 - 200 Triglycerides 105 mg/dL 30 - 150 HDL Cholesterol 89 mg/dL High 35 - 60 LDL (Calculated) 33 CALC Low 50 - 159 Comprehensive Chem Profile 03/30/2021 [facility] [place]: [place] [address] [phone] Glucose 94 mg/dL 74 - 99 9 BUN 19 mg/dL High 7 - 18 [...] Low >60 GFR >= 60 mL/min >60 10 Complete Blood Count 03/30/2021 [facility] [place]: Dr Irwin [place], [place] [id number] [phone] WBC 9.2 x10*3/UL 4.1 - 10.9 11 RBC 4.37 x10*6/UL 4.20 - 6.30 Hemoglobin [...] Neut # 6.9 x10*3/UL 2.0 - 7.8 Laboratory test finding 02/22/2021 [facility] [address] [place] [address] [phone] Blood Urea Nitrogen 16 mg/dL Normal 7-18 Creatinine With GFR 02/22/2021 [facility] nter [address] [place] [address] [phone] Creatinine For GFR 0.80 mg/dL Normal 0.55-1.30 Glomerular Filtration Rate > 60.0 Normal >45 1 2 CBC With Differential 02/06/2021 [facility] [address] [place] [address] [phone] White Blood Count 10.1 10 High 4.0-10.0 Red Blood Count 4.32 10 Normal 4.00-5.40 Hemoglobin 11.7 g/dL Low 12.0-15.5 Hematocrit 36.6 % Normal 36.0-47.0 Mean Corpuscular Volume 84.7 fl Normal 80.0-96.0 Mean Corpuscular Hemoglobin 27.1 pg Normal 27.0-33.0 Mean Corpuscular HGB Conc 32.0 g/dL Normal 32.0-36.5 Red Cell Distribution Width 17.5 % High 11.5-14.5 Platelet Count, Automated 510 10 High 150-450 Neutrophils % 70.4 % High 36.0-66.0 Lymph % 20.5 % Low 24.0-44.0 [place] % 7.0 % Normal 2.0-8.0 Eos % 1.1 % Normal 0.0-3.0 Baso % 0.6 % Normal 0.0-1.0 Immature Granulocyte % 0.4 % Normal 0-3.0 Nucleated Red Blood Cell % 0.0 % Normal 0-0 Neutrophils # 7.1 10 Normal 1.5-8.5 Lymph # 2.1 10 Normal 1.5-5.0 [place] # 0.7 10 Normal 0.0-0.8 Eos # 0.1 10 Normal 0.0-0.5 Baso # 0.1 10 Normal 0.0-0.2 Laboratory test finding 02/06/2021 [facility] [address] [place] [address] [phone] Erythrocyte Sedimentation Rate 44 mm/hr High 0 -30 Total Iron Binding Capacit 02/06/2021 [facility] [address] [place] [address] [phone] Iron (Fe) 37 g/dL Low 50-170 Total Iron Binding Capacity 383 g/dL Normal 250-450 Percent Saturation 9.7 % Low 13.2-45.0 Vitamin B12 & Folate 02/06/2021 [facility] [address] [place] [address] [phone] Vitamin B12 Level 764 pg/mL Normal 13 Folate 20.3 NG/ML Normal 14 Laboratory test finding 02/06/2021 [facility] [address] [place] [address] [phone] C Reactive Protein Quantitativ 0.66 mg/dL High 0 .00-0.30 Quanteferon TB Gold Test 02/06/[address] [address] [phone] QuantiFERON Criteria (SEE NOTE) Normal . 15 QuantiFERON TB1 Ag Value 0.05 IU/mL Normal . QuantiFERON TB2 Ag Value 0.05 IU/mL Normal . QuantiFERON Nil Value 0.06 IU/mL Normal . QuantiFERON Mitogen Value >10.00 IU/mL Normal . QuantiFERON-TB Gold Plus Negative Normal Negative 16 Laboratory test finding 02/06/[address] [address] [phone] Hepatitis B Surf AB Quant 4.9 mIU/mL Low Immuni ty>9.9 17 Hepatitis B Core Antibody Igg Negative Normal Negative 18 Prometh Monitr Crohns's Disease 02/06/2021 [facility] [address] [place] [address] [phone] Monitr Crohn's Disease SEE SEPARATE REP <SEE NOTE> No rmal 19 IBD Reflex Crohns Prognostic 02/06/[address] [id number] [phone] Ibdser1 SEE SEPARATE REP <SEE NOTE> Normal 20 Crohn1 SEE SEPARATE REP <SEE NOTE> Normal 21 1 Units are mL/min/1.73 m2 Chronic Kidney Disease Staging per NKF: Stage I & II GFR >=60 Normal to Mildly Decreased Stage III GFR 30-59 Moderately Decreased Stage IV GFR 15-29 Severely Decreased Stage V GFR <15 Very Little GFR Left ESRD GFR <15 on KIER TENDER 2 VITAMIN B12 NORMAL RANGE NORMAL 247 - 911 PG/ML INDETERMINATE 211 - 246 PG/ML DEFICIENT LESS THAN 211 PG/ML 3 FOLATE NORMAL RANGE NORMAL GREATER THAN 5.4 NG/ML INDETERMINATE 3.4-5.4 NG/ML DEFICIENT LESS THAN 3.4 NG/ML 4 Units are mL/min/1.73 m2 Chronic Kidney Disease Staging per NKF: Stage I & II GFR >=60 Normal to Mildly Decreased Stage III GFR 30-59 Moderately Decreased Stage IV GFR 15-29 Severely Decreased Stage V GFR <15 Very Little GFR Left ESRD GFR <15 on KIER TENDER 5 VITAMIN B12 NORMAL RANGE NORMAL 247 - 911 PG/ML INDETERMINATE 211 - 246 PG/ML DEFICIENT LESS THAN 211 PG/ML 6 See Pathology Report Specimen Collection for Pathology Reference Lab Testing. Refer to [facility] Pathology Report for Results:[id number] See Pathology Report Specimen Collection for Pathology Reference Lab Testing. Refer to [facility] Pathology Report for Results: [id number] Lab Result Notes: Pre-Diabetes 5.7 - 6.4 % Diabetes = or > 6.5% 9 100-125 mg/dL PRE-DIABET ES/FASTING >126 mg/dL DIABETES/FASTING 10 CHRONIC KIDNEY DISEASE STAGI NG PER NKF STAGE I & II GFR >= 60 NORMAL TO MILDLY DECREASED STAGE III GFR 30-59 MODERATELY DECREASED STAGE IV GFR 15-29 SEVERELY DECREASED STAGE V GFR <15 VERY LITTLE GFR LEFT ESRD GFR <15 ON KIER TENDER 11 NOTE: CBC VERIFIED 12 Units are mL/min/1.73 m2 Chronic Kidney Disease Staging per NKF: Stage I & II GFR >=60 Normal to Mildly Decreased Stage III GFR 30-59 Moderately Decreased Stage IV GFR 15-29 Severely Decreased Stage V GFR <15 Very Little GFR Left ESRD GFR <15 on KIER TENDER 13 VITAMIN B12 NORMAL RANGE NORMAL 247 - 911 PG/ML INDETERMINATE 211 - 246 PG/ML DEFICIENT LESS THAN 211 PG/ML 14 FOLATE NORMAL RANGE NORMAL GREATER THAN 5.4 NG/ML INDETERMINATE 3.4-5.4 NG/ML DEFICIENT LESS THAN 3.4 NG/ML 15 . The QuantiFERON-TB Gold Plus result is determined by subtracting the Nil value from either TB antigen (Ag) tube. The mitogen tube serves as a control for the test. 16 The specimen received for Qu antiFERON testing was incubated by the ordering institution. Specific procedures outlined in our Directory of Services and in the package insert for the QuantiFERON Gold (In Tube) test must be followed to enable for proper stimulation of cells for the production of interferon gamma. Chemiluminescence immunoassay methodology Performed at: [address] [id number] [place]: Leonor Flores MD, Phone: [phone] 17 Status of Immunity Anti-HBs Level - Inconsistent with Immunity 0.0 - 9.9 Consistent with Immunity >9.9 18 Performed at: [address] [id number] [place]: Leonor Flores MD, Phone: [phone] 19 SEE SEPARATE REPORT 20 SEE SEPARATE REPORT 21 SEE SEPARATE REPORT Testing performed at reference lab . Report copy to follow on a separate form. 02/22/21 REF LAB#:[id number] Procedures Date Code Description Status 04/27/2021 53233 Chronic Care Management Services Ea Addl 20 Min Completed 04/27/2021 68721 Chronic Care MGMT 20 Mins Clinical Staff Time Per Calendar Month Completed 03/30/2021 26356 Office/Outpatient Established Mo d MDM 30-39 Min Completed 03/22/2021 23854 Chronic Care MGMT 20 Mins Clinical Staff Time Per Calendar Month Completed 02/01/2021 31643 Office/Outpatient Established Lo w MDM 20-29 Min Completed 12/13/2020 [id number] Diabetic Retinal Eye Exam [facility] 05/09/2020 [id number] Bone Mineral Density Test [facility] 05/09/2020 [id number] Mammogram Completed 07/29/2019 503672466 Diabetic Retinal Eye Exam [facility] 12/02/2017 150333789 Bone Mineral Density Test [facility] 12/02/2017 [id number] Mammogram Completed 09/26/2016 [id number] Mammogram Completed 05/09/2016 [id number] Mammogram Completed 03/14/2014 [id number] Mammogram Completed 11/08/2011 [id number] Mammogram Completed 11/08/2011 [id number] Bone Mineral Density Test [facility]ple [facility] 10/05/2010 286474115 Diabetic Foot Exam Completed 08/22/2010 [id number] Mammogram Completed 09/14/2008 975049685 Bone Mineral Density Test [facility] 07/31/2006 [id number] Mammogram Completed Medical Devices Description No Information Available Encounters Type Date Location Provider Dx Diagnosis Office Visit 03/30/2021 9:00a [facility] Kathleen Ferris, OBSTETRIC ANAESTHETIST E11.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abetic [...] nitis E78.2 Mixed hyperlipidemia Z93.2 Ileostomy status Office Visit 02/01/2021 2:20p [facility] 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 N18.31 Chronic kidney disease, stag e 3a Z93.2 Ileostomy status K21.9 Gastro-esophageal reflux dis ease without esophagitis E78.00 Pure hypercholesterolemia, u nspecified E55.9 Vitamin D deficiency, unspec ified F41.9 Anxiety disorder, unspecifie d D50.9 Iron deficiency anemia, unsp ecified K50.918 Crohn's disease, unspecified , with other complication H93.13 Tinnitus, bilateral H61.23 Impacted cerumen, bilateral Assessments Date Code Description Provider 04/27/2021 N18.31 Chronic kidney disease, stage 3a Dc Chavez MD 04/27/2021 K21.9 Gastro-esophageal reflux disease without esophagitis Dc Chavez MD 04/27/2021 E78.00 Pure hypercholesterolemia, unspe cified Dc Chavez MD 03/30/2021 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 JOHN Mcneill 03/30/2021 N18.31 Chronic kidney disease, stage 3a SCARLET McneillP 03/30/2021 D69.6 Thrombocytopenia, unspecified An n [place], [facility] 03/30/2021 K21.9 Gastro-esophageal reflux disease without esophagitis Kathleen [place], [facility] 03/30/2021 E78.00 Pure hypercholesterolemia, unspe cified Kathleen [place], [facility] 03/30/2021 E55.9 Vitamin D deficiency, unspecifie d Kathleen [place], [facility] 03/30/2021 F41.9 Anxiety disorder, unspecified An n [place], [facility] 03/30/2021 D50.9 Iron deficiency anemia, unspecif ied Kathleen [place], [facility] 03/30/2021 K50.918 Crohn's disease, unspecified, wi th other complication Kathleen [place], [facility] 03/30/2021 N95.2 Postmenopausal atrophic vaginiti s Kathleen [place], [facility] 03/30/2021 E78.2 Mixed hyperlipidemia Kathleen [place] , [facility] 03/30/2021 Z93.2 Ileostomy status Kathleen [place], P 03/22/2021 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 Dc Chavez MD 03/22/2021 N18.31 Chronic kidney disease, stage 3a Dc Chavez MD 03/22/2021 K21.9 Gastro-esophageal reflux disease without esophagitis Dc Chavez MD 03/22/2021 E78.00 Pure hypercholesterolemia, unspe cified Dc Chavez MD 02/01/2021 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 Kathleen [place], [facility] 02/01/2021 N18.31 Chronic kidney disease, stage 3a Kathleen [place], [facility] 02/01/2021 Z93.2 Ileostomy status Kathleen [place], FN P 02/01/2021 K21.9 Gastro-esophageal reflux disease without esophagitis Kathleen [place], [facility] 02/01/2021 E78.00 Pure hypercholesterolemia, unspe cified Kathleen [place], [facility] 02/01/2021 E55.9 Vitamin D deficiency, unspecifie d Kathleen [place], [facility] 02/01/2021 F41.9 Anxiety disorder, unspecified An n [place], [facility] 02/01/2021 D50.9 Iron deficiency anemia, unspecif ied Kathleen Gaming, [facility] 02/01/2021 K50.918 Crohn's disease, unspecified, wi th other complication Kathleen Gaming, [employer] ANAESTHETIST 02/01/2021 H93.13 Tinnitus, bilateral Kathleen Gaming, [employer]ET[employer] ANAESTHETIST 02/01/2021 H61.23 Impacted cerumen, bilateral JOHN Mcneill Plan of Treatment Future Appointment(s):* 03/28/2022 9:00 am - Nurse #2 at [facility] * 03/28/2022 9:20 am - JOHN Mcneill at [facility] Functional Status Description No Information Available Mental Status Description No Information Available Referrals Refer to Reason for Referral Status Appt Date [facility] Hematology/Oncology FOIL SPOOLER CONSULT FOR ELEVATED PLATELETS Misty encarnacion Notified 05/09/2021 [address] [place] [address] [phone]
--- OUTSIDE RECORDS SUMMARY | 2021-09-20 07:58 | CCD | Continuity of Care Document ---
Author Organization Unknown Address Unknown Phone Unavailable Care Team Providers Care Physician Name Role Phone Tray Triplett MD AUTM [phone] Kathleen Estes AUTM [phone] Ruiz Wan MD AUTM [phone] Problems Active Problems Provider Date Pulmonary embolism [...] 20mg Capsules 1 by mouth every day JOHN Mcneill 02/01/2021 Lisinopril 2.5mg Tablets 1 by mouth every day 90tabs E11.21 Kathleen Gaming [facility] 10/04/2020 Calcium + D 1200MG/D Mercedes Russell M.D. 10/04/2019 Bupropion Hydrochloride ER (XL) 150mg Tablets ER 24HR take 1 tablet by mouth once daily 90tabs Kathleen Gaming [facility] 09/07/2019 Fluticasone Propionate 50mcg/Act Suspension 2 sprays each nostril daily X 2 Weeks Then prn 16gm [facility] 05/18/2019 Fortify Probiotic Womens Extra Strength Capsules Cecilia Scott,[facility] 10/23/20 18 Buspirone HCL 15mg Tablets take 1 tablet by mouth twice daily 180tabs Kathleen Gaming [facility] 05/29/2018 Vitamin D 1000Unit Tablets 2 by mouth every day Randa Burden, [place] 8 OnetoCogniK Ultra Blue Strips use twice daily to check blood sugar dx e11.9 200units [facility]yn [facility] 09/03/2017 Melatonin 10mg Tablets 1 hs p o [facility] 09/24/2016 Metformin HCL ER 500mg Tablets ER 24HR take 2 tablets by mouth once daily with the largest meal of the day 180tabs Kathleen Gaming [facility] 09/24/2016 Aspirin Childrens 81mg Chewtabs 1 by mouth every hs [facility] 09/24/2016 Loperamide HCL 2mg Capsules 4 capsules at bedtime by mouth may take additional 4 capsules in daytime - not to exceed 16mg daily 240caps Kathleen Gaming [facility] 09/24/2016 Ferrous Sulfate 325(65Fe) mg Table ts DR 1 by mouth every day [facility] 6 Womens One Daily Tablets 1 by mouth every day Randa Burden, [place] 6 Atorvastatin Calcium 20mg Tablets take 1 tablet by mouth every day 90tabs Kathleen Gaming [facility] 08/[address] take 1 capsule by mouth twice daily. maximum daily dose is 2 180caps Susana Gaming [facility] 11/22/2010 Claritin 10mg Tablets 1 by mouth every day Unknown Similasan Earache Relief Solution Unknown [place]-3 Drops For Eyes Unknown Budesonide 3mg Caps DR Harini 3 tabs daily before dinner for four weeks, then 2 tabs daily for four weeks, then 1 tab daily for remaining four weeks- Dr. Wan's Unknow n Magnesium 300mg Capsules 1 by mouth every day Unknown Medications Administered in Office Medication SIG Qnty Indications Ordering Provider Date Covid-19 vaccine, Unspecified Inj ection Unknown 12/28/2020 Covid-19 vaccine, Unspecified Inj ection Unknown 11/30/2020 Immunization Adminstration,1 Vaccine/Tox oid Injection Cecilia Whitaker FNP 04/11/20 20 Immunizations CPT Code Status Date Vaccine Reaction Lot # [id number] Given 04/11/2020 Pneumovax 23 [id number] 03745 Given 04/11/2020 Adacel- Tetanus Diphtheria Pertussis (Age64 & Under) [id number] U-Flu Given 09/26/2019 Influenza,Unspecified U-PneuC Given 06/07/2019 Prevnar 13 62469 Given 06/07/2019 Shingrix Zoster Vaccine (HZV), Recombinant, Subunit, Adjuvanted 99132 Given 04/07/2019 Shingrix U-Flu Given 09/03/2018 Influenza,Unspecified 74745 Given 07/04/2017 PPD 0 mm read by Apolonia thao, URIEL [id number] Q2037 Given 09/24/2016 Fluvirin Virus Vaccine 16 [id number] 19125 Given 09/02/2003 Pneumovax 23 Vital Signs Date Vital Result Comment 03/30/2021 8:40am BP Systolic 128 mmHg BP Diastolic 68 mmHg Heart Rate 74 /min Height 61.25 inches 5'1.25" Weight 118.50 lb O2 % BldC Oximetry 98 % RM Air BMI (Body Mass Index) 22.2 kg/m2 02/01/2021 2:23pm BP Systolic 144 mmHg BP Diastolic 68 mmHg BP Systolic Recheck 146 mmHg BP Diastolic Recheck 62 mmHg Heart Rate 88 /min Height 61.25 inches 5'1.25" Weight 116.00 lb BMI (Body Mass Index) 21.7 kg/m2 Results Test Acquired Date Facility Test Result H/L Range Note Laboratory test finding 06/28/2021 [facility] [address] [place] [address] [phone] Erythrocyte Sedimentation Rate 39 mm/hr High 0 -30 Liver Profile 06/28/2021 [facility]ter [address] [place] [address] [phone] Ast/Sgot 20 U/L Normal 7-37 Alt/SGPT 30 U/L Normal 12-78 Alkaline Phosphatase 95 U/L Normal 45-117 Bilirubin,Total 0.4 mg/dL Normal 0.2-1.0 Bilirubin,Direct 0.1 mg/dL Normal 0.0-0.2 Total Protein 6.9 GM/DL Normal 6.4-8.2 Albumin 3.3 GM/DL Normal 3.2-5.2 Albumin/Globulin Ratio 0.9 Low 1.2-2.2 Basic Metabolic Profile 06/28/[address] [address] [phone] Glucose, Fasting 126 mg/dL High 70-100 Blood [...] Normal 8.8-10.2 Total Iron Binding Capacit 06/28/2021 [facility] [address] [place] [address] [phone] Iron (Fe) 33 g/dL Low 50-170 Total Iron Binding Capacity 424 g/dL Normal 250-450 Percent Saturation 7.8 % Low 13.2-45.0 Vitamin B12 & Folate 06/28/2021 [facility] [address] [place] [address] [phone] Vitamin B12 Level 598 pg/mL Normal 2 Folate > 24.0 NG/ML Normal 3 Laboratory test finding 06/28/[address] [place] [address] [phone] C Reactive Protein Quantitativ 0.64 mg/dL High 0 .00-0.30 CBC With Differential 06/28/[address] [address] [phone] White Blood Count 10.4 10 High 4.0-10.0 [...] 36.0-66.0 Lymph % 21.9 % Low 24.0-44.0 Chambers % 8.1 % High 2.0-8.0 Eos % 0.7 % Normal 0.0-3.0 Baso % 0.6 % Normal 0.0-1.0 Immature Granulocyte % 0.5 % Normal 0-3.0 Nucleated Red Blood Cell % 0.0 % Normal 0-0 Neutrophils # 7.1 10 Normal 1.5-8.5 Lymph # 2.3 10 Normal 1.5-5.0 Chambers # 0.9 10 High 0.0-0.8 Eos # 0.1 10 Normal 0.0-0.5 Baso # 0.1 10 Normal 0.0-0.2 CBC With Differential 05/09/[address] [address] [phone] White Blood Count 15.0 10 High 4.0-10.0 [...] 36.0-66.0 Lymph % 5.4 % Low 24.0-44.0 Chambers % 0.7 % Low 2.0-8.0 Eos % 0.0 % Normal 0.0-3.0 Baso % 0.1 % Normal 0.0-1.0 Immature Granulocyte % 1.3 % Normal 0-3.0 Nucleated Red Blood Cell % 0.0 % Normal 0-0 Neutrophils # 13.9 10 High 1.5-8.5 Lymph # 0.8 10 Low 1.5-5.0 Chambers # 0.1 10 Normal 0.0-0.8 Eos # 0.0 10 Normal 0.0-0.5 Baso # 0.0 10 Normal 0.0-0.2 Comprehensive Metabolic Profil 05/09/[address] [address] [phone] Glucose, Fasting 121 mg/dL High 70-100 Blood [...] Low 1.2-2.2 Total Iron Binding Capacit 05/09/[address] [place], [place] [id number] [phone] Iron (Fe) 139 g/dL Normal 50-170 Total Iron Binding Capacity 494 g/dL High 250-450 Percent Saturation 28.1 % Normal 13.2-45.0 Laboratory test finding 05/09/2021 [facility] [address] [place] [address] [phone] Vitamin B12 Level 580 pg/mL Normal 247-911 5 Ferritin 19 NG/ML Normal 8-252 BCR/Abl Screen For CML Path 05/09/2021 [facility] [address] [place] [address] [phone] BCR/Abl Screen For CML Path So See Pathology Re <SEE NOTE> Normal 6 Laboratory test finding 05/09/2021 [facility] [address] [place] [address] [phone] Jak2 Mutations For Path Sendou See Pathology Re <SEE NOTE> Normal 7 A1c 03/30/2021 [facility] , [employer] Machine [employer] Helper: Dr Dc Chavez [place] [id number] [phone] Hba1c 6.0 % High <5.7 8 Est Avg Glucose 125 mg/dL High 60 - 110 Laboratory test finding 03/30/2021 [facility], [employer] Machine Operator Helper: Dr Dc Chavez [place], [place] [id number] [phone] Magnesium 1.9 mg/dL 1.8 - 2.4 Lipid Profile 03/30/2021 [facility] , [employer] Helper: Dr Dc Chavez [place] [id number] [phone] Cholesterol 143 mg/dL 131 - 200 Triglycerides 105 mg/dL 30 - 150 HDL Cholesterol 89 mg/dL High 35 - 60 LDL (Calculated) 33 CALC Low 50 - 159 Comprehensive Chem Profile 03/30/2021 [facility], [employer] Helper: Dr Dc Chavez [place], [place] [id number] [phone] Glucose 94 mg/dL 74 - 99 9 [...] mL/min >60 10 Complete Blood Count 03/30/2021 [facility] [employer] Helper: Dr Dc Chavez [place], [place] [id number] [phone] WBC 9.2 x10*3/UL 4.1 - 10.9 11 [...] 2.0 - 7.8 Laboratory test finding 02/22/2021 [facility] [address] [place] [address] [phone] Blood Urea Nitrogen 16 mg/dL Normal 7-18 Creatinine With GFR 02/22/2021 [facility] nter [address] [place] [address] [phone] Creatinine For GFR 0.80 mg/dL Normal 0.55-1.30 Glomerular Filtration Rate > 60.0 Normal >45 1 2 CBC With Differential 02/06/[address] [address] [phone] White Blood Count 10.1 10 High 4.0-10.0 [...] 36.0-66.0 Lymph % 20.5 % Low 24.0-44.0 Chambers % 7.0 % Normal 2.0-8.0 Eos % 1.1 % Normal 0.0-3.0 Baso % 0.6 % Normal 0.0-1.0 Immature Granulocyte % 0.4 % Normal 0-3.0 Nucleated Red Blood Cell % 0.0 % Normal 0-0 Neutrophils # 7.1 10 Normal 1.5-8.5 Lymph # 2.1 10 Normal 1.5-5.0 Chambers # 0.7 10 Normal 0.0-0.8 Eos # 0.1 10 Normal 0.0-0.5 Baso # 0.1 10 Normal 0.0-0.2 Laboratory test finding 02/06/2021 [facility] [address] [place] [address] [phone] Erythrocyte Sedimentation Rate 44 mm/hr High 0 -30 Total Iron Binding Capacit 02/06/[address] [address] [phone] Iron (Fe) 37 g/dL Low 50-170 Total Iron Binding Capacity 383 g/dL Normal 250-450 Percent Saturation 9.7 % Low 13.2-45.0 Vitamin B12 & Folate 02/06/2021 [facility] [address] [place] [address] [phone] Vitamin B12 Level 764 pg/mL Normal 13 Folate 20.3 NG/ML Normal 14 Laboratory test finding 02/06/2021 [facility] [address] [place] [address] [phone] C Reactive Protein Quantitativ 0.66 mg/dL High 0 .00-0.30 Quanteferon TB Gold Test 02/06/2021 [facility] [address] [place] [address] [phone] QuantiFERON Criteria (SEE NOTE) Normal . 15 QuantiFERON TB1 Ag Value 0.05 IU/mL Normal . QuantiFERON TB2 Ag Value 0.05 IU/mL Normal . QuantiFERON Nil Value 0.06 IU/mL Normal . QuantiFERON Mitogen Value >10.00 IU/mL Normal . QuantiFERON-TB Gold Plus Negative Normal Negative 16 Laboratory test finding 02/06/2021 [facility] [address] [place] [address] [phone] Hepatitis B Surf AB Quant 4.9 mIU/mL Low Immuni ty>9.9 17 Hepatitis B Core Antibody Igg Negative Normal Negative 18 Prometh Monitr Crohns's Disease 02/06/2021 [facility] [address] [place] [address] [phone] Monitr Crohn's Disease SEE SEPARATE REP <SEE NOTE> No rmal 19 IBD Reflex Crohns Prognostic 02/06/2021 [place] [address] [place] [address] [phone] Ibdser1 SEE SEPARATE REP <SEE NOTE> Normal 20 Crohn1 SEE SEPARATE REP <SEE NOTE> Normal 21 1 Units are mL/min/1.73 m2 Chronic Kidney Disease Staging per NKF: Stage I & II GFR >=60 Normal to Mildly Decreased Stage III GFR 30-59 Moderately Decreased Stage IV GFR 15-29 Severely Decreased Stage V GFR <15 Very Little GFR Left ESRD GFR <15 on UTILIZATION REVIEW COORDINATOR 2 VITAMIN B12 NORMAL RANGE NORMAL 247 [...] Little GFR Left ESRD GFR <15 on UTILIZATION REVIEW COORDINATOR 5 VITAMIN B12 NORMAL RANGE NORMAL 247 - 911 PG/ML INDETERMINATE 211 - 246 PG/ML DEFICIENT LESS THAN 211 PG/ML 6 See Pathology Report Specimen Collection for Pathology Reference Lab Testing. Refer to [facility] Pathology Report for Results:[id number] See Pathology Report Specimen Collection for Pathology Reference Lab Testing. Refer to [facility] Pathology Report for Results: [id number] Lab Result Notes: Pre-Diabetes 5.7 - [...] LITTLE GFR LEFT ESRD GFR <15 ON UTILIZATION REVIEW COORDINATOR 11 NOTE: CBC VERIFIED 12 Units are mL/min/1.73 m2 Chronic Kidney Disease Staging per NKF: Stage I & II GFR >=60 Normal to Mildly Decreased Stage III GFR 30-59 Moderately Decreased Stage IV GFR 15-29 Severely Decreased Stage V GFR <15 Very Little GFR Left ESRD GFR <15 on UTILIZATION REVIEW COORDINATOR 13 VITAMIN B12 NORMAL RANGE NORMAL 247 [...] interferon gamma. Chemiluminescence immunoassay methodology Performed at: [facility] [address] [id number] [employer]: Leonor Flores MD, Phone: [phone] Status of Immunity Anti-HBs Level - Inconsistent with Immunity 0.0 - 9.9 Consistent with Immunity >9.9 18 Performed at: - [facility] [address] [id number] [employer]: Leonor Flores MD, Phone: [phone] SEE SEPARATE REPORT 20 SEE SEPARATE REPORT 21 SEE SEPARATE REPORT Testing performed at reference lab . Report copy to follow on a separate form. 02/22/21 REF LAB#:[id number] Procedures Date Code Description Status 04/27/2021 24707 Chronic Care Management Services Ea Addl 20 Min Completed 04/27/2021 30190 Chronic Care MGMT 20 Mins Clinical Staff Time Per Calendar Month Completed 03/30/2021 90056 Office/Outpatient Established Mo d MDM 30-39 Min Completed 03/22/2021 64774 Chronic Care MGMT 20 Mins Clinical Staff Time Per Calendar Month Completed 02/01/2021 68135 Office/Outpatient Established Lo w MDM 20-29 Min Completed 12/13/2020 128897054 Diabetic Retinal Eye Exam [facility] 05/09/2020 [id number] Bone Mineral Density Test [facility] 05/09/2020 [id number] Mammogram Completed 07/29/2019 073895597 Diabetic Retinal Eye Exam [facility] 12/02/2017 292995581 Bone Mineral Density Test [facility] 12/02/2017 [id number] Mammogram Completed 09/26/2016 68892465 Mammogram Completed 05/09/2016 25486565 Mammogram Completed 03/14/2014 16785867 Mammogram Completed 11/08/2011 98705684 Mammogram Completed 11/08/2011 785742337 Bone Mineral Density Test [facility] 10/05/2010 836987606 Diabetic Foot Exam Completed 08/22/2010 [id number] Mammogram Completed 09/14/2008 429004556 Bone Mineral Density Test [facility] 07/31/2006 [id number] Mammogram Completed Medical Devices Description No Information Available Encounters Type Date Location Provider Dx Diagnosis Office Visit 03/30/2021 9:00a [facility] Kathleen Ferris, [facility] E11.21 Type 2 diabetes mellitus with [...] Z93.2 Ileostomy status Office Visit 02/01/2021 2:20p [facility] Kathleen Ferris, [facility] E11.21 Type 2 diabetes mellitus with [...] mellitus with di abetic nephropathy Kathleen Gaming [facility] 03/30/2021 N18.31 Chronic kidney disease, stage 3a Kathleen Gaming [facility] 03/30/2021 D69.6 Thrombocytopenia, unspecified An cyril Gaming [facility] 03/30/2021 K21.9 Gastro-esophageal reflux disease without esophagitis Kathleen Gaming [facility] 03/30/2021 E78.00 Pure hypercholesterolemia, unspe cified Kathleen Le Leon, [facility] 03/30/2021 E55.9 Vitamin D deficiency, unspecifie d Kathleen Le Leon, [facility] 03/30/2021 F41.9 Anxiety disorder, unspecified An n Le Leon, [facility] 03/30/2021 D50.9 Iron deficiency anemia, unspecif ied Kathleen Viola Leon, [facility] 03/30/2021 K50.918 Crohn's disease, unspecified, wi th other complication Kathleen Le Leon, [facility] 03/30/2021 N95.2 Postmenopausal atrophic vaginiti s Kathleen Le Leon, [facility] 03/30/2021 E78.2 Mixed hyperlipidemia Kathleen Le Leon , [facility] 03/30/2021 Z93.2 Ileostomy status Kathleen Gaming, P 03/22/2021 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 Dc Chavez MD 03/22/2021 N18.31 Chronic kidney disease, stage 3a Dc Chavez MD 03/22/2021 K21.9 Gastro-esophageal reflux disease without esophagitis Dc Chavez MD 03/22/2021 E78.00 Pure hypercholesterolemia, unspe cified Dc Chavez MD 02/01/2021 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 Kathleen Gaming, [facility] 02/01/2021 N18.31 Chronic kidney disease, stage 3a Kathleen Viola Leon, [facility] 02/01/2021 Z93.2 Ileostomy status Kathleen Viola Leon, P 02/01/2021 K21.9 Gastro-esophageal reflux disease without esophagitis Kathleen Le Leon, [facility] 02/01/2021 E78.00 Pure hypercholesterolemia, unspe cified Kathleen Le Leon, [facility] 02/01/2021 E55.9 Vitamin D deficiency, unspecifie d Kathleen Le Leon, [facility] 02/01/2021 F41.9 Anxiety disorder, unspecified An n Le Leon, [facility] 02/01/2021 D50.9 Iron deficiency anemia, unspecif ied Kathleen Le Leon, [facility] 02/01/2021 K50.918 Crohn's disease, unspecified, wi th other complication Kathleen Le Leon, [facility] 02/01/2021 H93.13 Tinnitus, bilateral Kathleen Gaming, JOHN 02/01/2021 H61.23 Impacted cerumen, bilateral Kathleen Gaimng, JOHN Plan of Treatment Future Appointment(s):* 03/28/2022 9:00 am - Nurse #2 at [facility] * 03/28/2022 9:20 am - JOHN Mcneill at [facility] * 07/05/2021 10:20 am - JOHN Mcneill at [facility] 03/30/2021 - JOHN Mcneill* E11.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abetic nephropathy* Comments:* A1C obtained and reviewed and is at goal. * N18.31 Chronic kidney disease, stage 3a* Comments:* BMP obtained, reviewed and is stable. * D69.6 Thrombocytopenia, unspecified* Comments:* platelets remain elevated. Will refer to hematology. * K21.9 Gastro-esophageal reflux disease without esophagitis* Comments:* asymptomatic on PPI * E78.00 Pure hypercholesterolemia, unspecified * E55.9 Vitamin D deficiency, unspecified* Comments:* continue supplementation. * F41.9 Anxiety disorder, unspecified* Comments:* doing well on Bupropion and Buspirone. * D50.9 Iron deficiency anemia, unspecified* Comments:* CBC obtained and reviewed and has improved. * K50.918 Crohn's disease, unspecified, with other complication* Comments:* she is now on Budesonide. * N95.2 Postmenopausal atrophic vaginitis * E78.2 Mixed hyperlipidemia* Comments:* Lipids obtained and reviewed and are at goal.tolerating statin without adverse effects. * Recommendations:* low cholesterol diet. * Z93.2 Ileostomy status * All * New Medication:* Estrace 0.1 mg/GM - 1/4 applicatorful vaginally at bedtime daily x 14 days then three times a week Functional Status Description No Information Available Mental Status Description No Information Available Referrals Refer to Reason for Referral Status Appt Date [facility] Hematology/Oncology EXTENSION COURSE COUNSELOR CONSULT FOR ELEVATED PLATELETS Tawnyacharles shashank Notified 05/09/2021 [address] [place], [place] [id number] [phone]
--- OUTSIDE RECORDS SUMMARY | 2021-09-20 07:58 | CCD | Continuity of Care Document ---
Author Organization Unknown Address Unknown Phone Unavailable Care Team Providers Care Assistant Executive Housekeeper Name Role Phone Tray Triplett MD AUTM [phone] Kathleen Estes AUTM [phone] Ruiz Wan MD AUTM [phone] Problems Active Problems Provider Date Pulmonary embolism [...] 1 by mouth every day 90tabs E11.21 aKthleen Gaming [facility] 10/04/2020 Calcium + D 1200MG/D Mercedes Russell M.D. 10/04/2019 Bupropion Hydrochloride ER (XL) 150mg Tablets ER 24HR take 1 tablet by mouth once daily 90tabs Kathleen Gaming [facility] 09/07/2019 Fluticasone Propionate 50mcg/Act Suspension 2 sprays each nostril daily X 2 Weeks Then prn 16gm Cecilia Whitaker,[facility] 05/18/2019 Fortify Probiotic Womens Extra Strength Capsules Cecilia Scott,[facility] 10/23/20 18 Buspirone HCL 15mg Tablets Take 1 Tablet By Mouth Twice Daily 180tabs Kathleen Gaming [facility] 05/29/2018 Vitamin D 1000Unit Tablets 2 by mouth every day Randa Burden, [facility] 8 Onetouch Ultra Blue Strips use twice daily to check blood sugar dx e11.9 200units [facility] 09/03/2017 Womens One Daily Tablets 1 by mouth every day Randa Burden, [facility] 6 Metformin HCL ER 500mg Tablets ER 24HR take 2 tablets by mouth once daily with the largest meal of the day 180tabs Kathleen Gaming [facility] 09/24/2016 Aspirin Childrens 81mg Chewtabs 1 by mouth every hs [facility] 09/24/2016 Loperamide HCL 2mg Capsules 4 capsules at bedtime by mouth may take additional 4 capsules in daytime - not to exceed 16mg daily 240caps Kathleen Gaming [facility] 09/24/2016 Ferrous Sulfate 325(65Fe) mg Table ts DR 1 by mouth every day [facility] 6 Melatonin 10mg Tablets 1 hs p o [facility] 09/24/2016 Atorvastatin Calcium 20mg Tablets Take 1 Tablet By Mouth Every Day 90tabs Kathleen Gaming [facility] 08/[address] take 1 capsule by mouth twice daily. maximum daily dose is 2 180caps An n Viola Yip [facility] 11/22/2010 Claritin 10mg Tablets 1 by mouth every day Unknown Similasan Earache Relief Solution Unknown [place]-3 Drops For Eyes Unknown Budesonide 3mg Caps [...] Code Status Date Vaccine Reaction Lot # [id number] Given 04/11/2020 Pneumovax 23 [id number] Given 04/11/2020 Adacel- Tetanus Diphtheria Pertussis (Age64 & Under) [id number] U-Flu Given 09/26/2019 Influenza,Unspecified U-PneuC Given 06/07/2019 Prevnar 13 [id number] Given 06/07/2019 Shingrix Zoster Vaccine (HZV), Recombinant, Subunit, Adjuvanted 55228 Given 04/07/2019 Shingrix U-Flu Given 09/03/2018 Influenza,Unspecified 33086 Given 07/04/2017 PPD 0 mm read by Apolonia thao, URIEL [id number] Given 09/24/2016 Fluvirin Virus Vaccine 16 59891 Given 09/02/2003 Pneumovax 23 Vital Signs Date [...] H/L Range Note Laboratory test finding 06/28/[address] [address] [phone] Erythrocyte Sedimentation Rate 39 mm/hr High 0 -30 Liver Profile 06/28/2021 [facility] [address] [place] [address] [phone] Ast/Sgot 20 U/L Normal 7-37 Alt/SGPT 30 U/L Normal 12-78 Alkaline Phosphatase 95 U/L Normal 45-117 Bilirubin,Total 0.4 mg/dL Normal 0.2-1.0 Bilirubin,Direct 0.1 mg/dL Normal 0.0-0.2 Total Protein 6.9 GM/DL Normal 6.4-8.2 Albumin 3.3 GM/DL Normal 3.2-5.2 Albumin/Globulin Ratio 0.9 Low 1.2-2.2 Basic Metabolic Profile 06/28/[address] [address] [phone] Glucose, Fasting 126 mg/dL High 70-100 Blood [...] Normal 8.8-10.2 Total Iron Binding Capacit 06/28/[address] [address] [phone] Iron (Fe) 33 g/dL Low 50-170 Total Iron Binding Capacity 424 g/dL Normal 250-450 Percent Saturation 7.8 % Low 13.2-45.0 Vitamin B12 & Folate 06/28/[address] [address] [phone] Vitamin B12 Level 598 pg/mL Normal 2 Folate > 24.0 NG/ML Normal 3 Laboratory test finding 06/28/2021 [facility] [address] [place] [address] [phone] C Reactive Protein Quantitativ 0.64 mg/dL High 0 .00-0.30 Fat Fecal Qualitative 06/28/[address] [address] [phone] Fats Neutral Normal Normal . 4 Fats Total Normal Normal . 5 Laboratory test finding 06/28/[address] [address] [phone] Pancreatic Elastase Stool TNP Normal 6 Calprotectin Stool 40 ug/g Normal 0-120 7 CBC With Differential 06/28/[address] [address] [phone] White Blood Count 10.4 10 High 4.0-10.0 [...] 36.0-66.0 Lymph % 21.9 % Low 24.0-44.0 [place] % 8.1 % High 2.0-8.0 Eos % 0.7 % Normal 0.0-3.0 Baso % 0.6 % Normal 0.0-1.0 Immature Granulocyte % 0.5 % Normal 0-3.0 Nucleated Red Blood Cell % 0.0 % Normal 0-0 Neutrophils # 7.1 10 Normal 1.5-8.5 Lymph # 2.3 10 Normal 1.5-5.0 [place] # 0.9 10 High 0.0-0.8 Eos # 0.1 10 Normal 0.0-0.5 Baso # 0.1 10 Normal 0.0-0.2 CBC With Differential 05/09/[address] [address] [phone] White Blood Count 15.0 10 High 4.0-10.0 [...] 36.0-66.0 Lymph % 5.4 % Low 24.0-44.0 [place] % 0.7 % Low 2.0-8.0 Eos % 0.0 % Normal 0.0-3.0 Baso % 0.1 % Normal 0.0-1.0 Immature Granulocyte % 1.3 % Normal 0-3.0 Nucleated Red Blood Cell % 0.0 % Normal 0-0 Neutrophils # 13.9 10 High 1.5-8.5 Lymph # 0.8 10 Low 1.5-5.0 [place] # 0.1 10 Normal 0.0-0.8 Eos # 0.0 10 Normal 0.0-0.5 Baso # 0.0 10 Normal 0.0-0.2 Laboratory test finding 05/09/[address] [address] [phone] Jak2 Mutations For Path Sendou See Pathology Re <SEE NOTE> Normal 8 BCR/Abl Screen For CML Path 05/09/[address] [address] [phone] BCR/Abl Screen For CML Path So See Pathology Re <SEE NOTE> Normal 9 Laboratory test finding 05/09/[address] [address] [phone] Vitamin B12 Level 580 pg/mL Normal 247-911 10 Ferritin 19 NG/ML Normal 8-252 Total Iron Binding Capacit 05/09/[address] [address] [phone] Iron (Fe) 139 g/dL Normal 50-170 Total Iron Binding Capacity 494 g/dL High 250-450 Percent Saturation 28.1 % Normal 13.2-45.0 Comprehensive Metabolic Profil 05/09/[address] [address] [phone] Glucose, Fasting 121 mg/dL High 70-100 Blood [...] 0.8 Low 1.2-2.2 Complete Blood Count 03/30/2021 [facility] Electron Beam Operator: [place] [address] [phone] WBC 9.2 x10*3/UL 4.1 - 10.9 12 [...] x10*3/UL 2.0 - 7.8 Laboratory test finding 03/30/2021 [facility] Electron Beam Operator: [place] [address] [phone] Magnesium 1.9 mg/dL 1.8 - 2.4 Lipid Profile 03/30/2021 [facility] , Electron Beam Operator: [place] [address] [phone] Cholesterol 143 mg/dL 131 - 200 Triglycerides 105 mg/dL 30 - 150 HDL Cholesterol 89 mg/dL High 35 - 60 LDL (Calculated) 33 CALC Low 50 - 159 Comprehensive Chem Profile 03/30/2021 [facility], Electron Beam Operator: [place] [address] [phone] Glucose 94 mg/dL 74 - 99 13 BUN 19 mg/dL High 7 - 18 [...] Low >60 GFR >= 60 mL/min >60 14 A1c 03/30/2021 [facility] Electron Beam Operator: Dr Dc Chavez [place] [id number] [phone] Hba1c 6.0 % High <5.7 15 Est Avg Glucose 125 mg/dL High 60 - 110 Laboratory test finding 02/22/2021 [facility] [address] [place] [address] [phone] Blood Urea Nitrogen 16 mg/dL Normal 7-18 Creatinine With GFR 02/22/2021 [facility] [address] [place] [address] [phone] Creatinine For GFR 0.80 mg/dL Normal 0.55-1.30 Glomerular Filtration Rate > 60.0 Normal >45 1 6 CBC With Differential 02/06/2021 [facility] [address] [place] [address] [phone] White Blood Count 10.1 10 High 4.0-10.0 [...] 36.0-66.0 Lymph % 20.5 % Low 24.0-44.0 [place] % 7.0 % Normal 2.0-8.0 Eos % 1.1 % Normal 0.0-3.0 Baso % 0.6 % Normal 0.0-1.0 Immature Granulocyte % 0.4 % Normal 0-3.0 Nucleated Red Blood Cell % 0.0 % Normal 0-0 Neutrophils # 7.1 10 Normal 1.5-8.5 Lymph # 2.1 10 Normal 1.5-5.0 [place] # 0.7 10 Normal 0.0-0.8 Eos # 0.1 10 Normal 0.0-0.5 Baso # 0.1 10 Normal 0.0-0.2 Laboratory test finding 02/06/[address] [address] [phone] Erythrocyte Sedimentation Rate 44 mm/hr High 0 -30 Total Iron Binding Capacit 02/06/2021 [facility] [address] [place] [address] [phone] Iron (Fe) 37 g/dL Low 50-170 Total Iron Binding Capacity 383 g/dL Normal 250-450 Percent Saturation 9.7 % Low 13.2-45.0 Vitamin B12 & Folate 02/06/[address] [address] [phone] Vitamin B12 Level 764 pg/mL Normal 17 Folate 20.3 NG/ML Normal 18 Laboratory test finding 02/06/[address] [address] [phone] C Reactive Protein Quantitativ 0.66 mg/dL High 0 .00-0.30 Quanteferon TB Gold Test 02/06/[address] [address] [phone] QuantiFERON Criteria (SEE NOTE) Normal . 19 QuantiFERON TB1 Ag Value 0.05 IU/mL Normal . QuantiFERON TB2 Ag Value 0.05 IU/mL Normal . QuantiFERON Nil Value 0.06 IU/mL Normal . QuantiFERON Mitogen Value >10.00 IU/mL Normal . QuantiFERON-TB Gold Plus Negative Normal Negative 20 Laboratory test finding 02/06/[address] [address] [phone] Hepatitis B Surf AB Quant 4.9 mIU/mL Low Immuni ty>9.9 21 Hepatitis B Core Antibody Igg Negative Normal Negative 22 Prometh Monitr Crohns's Disease 02/06/[address] [address] [phone] Monitr Crohn's Disease SEE SEPARATE REP <SEE NOTE> No rmal 23 IBD Reflex Crohns Prognostic 02/06/2021 [place] [address] [place] [address] [phone] Ibdser1 SEE SEPARATE REP <SEE NOTE> Normal 24 Crohn1 SEE SEPARATE REP <SEE NOTE> Normal 25 1 Units are mL/min/1.73 m2 Chronic Kidney Disease Staging per NKF: Stage I & II GFR >=60 Normal to Mildly Decreased Stage III GFR 30-59 Moderately Decreased Stage IV GFR 15-29 Severely Decreased Stage V GFR <15 Very Little GFR Left ESRD GFR <15 on COUNTER MOLDER 2 VITAMIN B12 NORMAL RANGE NORMAL 247 - 911 PG/ML INDETERMINATE 211 - 246 PG/ML DEFICIENT LESS THAN 211 PG/ML 3 FOLATE NORMAL RANGE NORMAL GREATER THAN 5.4 NG/ML INDETERMINATE 3.4-5.4 NG/ML DEFICIENT LESS THAN 3.4 NG/ML 4 Normal (<60 Droplets/HPF) 5 Normal (<100 Droplets/HPF) 6 Test not performed. Consiste ncy of stool specimen too watery for analysis. TEST: [id number] Pancreatic Elastase, Fecal Testing performed at reference lab . Report copy to follow on a separate form. 07/10/21 REF LAB#:[id number] 7 Concentration Interpreta tion Follow-Up <16 - 50 ug/g Normal None >50 -120 ug/g Borderline Re-evaluate in 4-6 weeks >120 ug/g Abnormal Repeat as clinically indicated 8 See Pathology Report Specimen Collection for Pathology Reference Lab Testing. Refer to [facility] Pathology Report for Results: [id number] See Pathology Report Specimen Collection for Pathology Reference Lab Testing. Refer to [facility] Pathology Report for Results:[id number] VITAMIN B12 NORMAL RANGE NORMAL 247 [...] Little GFR Left ESRD GFR <15 on COUNTER MOLDER 12 NOTE: CBC VERIFIED 13 100-125 mg/dL PRE-DIABET ES/FASTING >126 mg/dL DIABETES/FASTING 14 CHRONIC KIDNEY DISEASE STAGI NG PER NKF STAGE I & II GFR >= 60 NORMAL TO MILDLY DECREASED STAGE III GFR 30-59 MODERATELY DECREASED STAGE IV GFR 15-29 SEVERELY DECREASED STAGE V GFR <15 VERY LITTLE GFR LEFT ESRD GFR <15 ON COUNTER MOLDER 15 Lab Result Notes: Pre-Diabetes 5.7 - 6.4 % Diabetes = or > 6.5% 16 Units are mL/min/1.73 m2 Chronic Kidney Disease Staging per NKF: Stage I & II GFR >=60 Normal to Mildly Decreased Stage III GFR 30-59 Moderately Decreased Stage IV GFR 15-29 Severely Decreased Stage V GFR <15 Very Little GFR Left ESRD GFR <15 on COUNTER MOLDER 17 VITAMIN B12 NORMAL RANGE NORMAL 247 - 911 PG/ML INDETERMINATE 211 - 246 PG/ML DEFICIENT LESS THAN 211 PG/ML 18 FOLATE NORMAL RANGE NORMAL GREATER THAN 5.4 NG/ML INDETERMINATE 3.4-5.4 NG/ML DEFICIENT LESS THAN 3.4 NG/ML 19 . The QuantiFERON-TB Gold Plus result is determined by subtracting the Nil value from either TB antigen (Ag) tube. The mitogen tube serves as a control for the test. 20 The specimen received for Qu antiFERON testing was incubated by the ordering institution. Specific procedures outlined in our Directory of Services and in the package insert for the QuantiFERON Gold (In Tube) test must be followed to enable for proper stimulation of cells for the production of interferon gamma. Chemiluminescence immunoassay methodology Performed at: [facility] [email or web address] [id number] Electron Beam Operator: Leonor Flores MD, Phone: [phone] 21 Status of Immunity Anti-HBs Level - Inconsistent with Immunity 0.0 - 9.9 Consistent with Immunity >9.9 22 Performed at: [facility] [email or web address] [id number] Electron Beam Operator: Leonor Flores MD, Phone: [phone] 23 SEE SEPARATE REPORT 24 SEE SEPARATE REPORT 25 SEE SEPARATE REPORT Testing performed at reference lab . Report copy to follow on a separate form. 02/22/21 REF LAB#:[id number] Procedures Date Code Description Status 04/27/2021 07342 Chronic Care Management Services Ea Addl 20 Min Completed 04/27/2021 08131 Chronic Care MGMT 20 Mins Clinical Staff Time Per Calendar Month Completed 03/30/2021 20232 Office/Outpatient Established Mo d MDM 30-39 Min Completed 03/22/2021 00035 Chronic Care MGMT 20 Mins Clinical Staff Time Per Calendar Month Completed 02/01/2021 32221 Office/Outpatient Established Lo w MDM 20-29 Min Completed 12/13/2020 699300403 Diabetic Retinal Eye Exam Comple [facility] 05/09/2020 935901601 Bone Mineral Density Test Comple [facility] 05/09/2020 83677307 Mammogram Completed 07/29/2019 850147025 Diabetic Retinal Eye Exam Comple [facility] 12/02/2017 061573335 Bone Mineral Density Test Comple [facility] 12/02/2017 86226314 Mammogram Completed 09/26/2016 36737528 Mammogram Completed 05/09/2016 88363697 Mammogram Completed 03/14/2014 10945856 Mammogram Completed 11/08/2011 36800545 Mammogram Completed 11/08/2011 634073727 Bone Mineral Density Test Comple [facility] 10/05/2010 272158695 Diabetic Foot Exam Completed 08/22/2010 39331384 Mammogram Completed 09/14/2008 468601054 Bone Mineral Density Test Comple [facility] 07/31/2006 68590355 Mammogram Completed Medical Devices Description No Information Available Encounters Type Date Location Provider Dx Diagnosis Office Visit 03/30/2021 9:00a [facility] Kathleen Ferris, TRANSIT MIXER DRIVER E11.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abetic [...] Z93.2 Ileostomy status Office Visit 02/01/2021 2:20p [facility] 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 Kathleen Viola Yip, [facility] 07/05/2021 N18.31 Chronic kidney disease, stage 3a Kathleen Viola Yip, [facility] 07/05/2021 K21.9 Gastro-esophageal reflux disease without esophagitis Kathleen Viola Yip, [facility] 07/05/2021 E55.9 Vitamin D deficiency, unspecifie d Kathleen Viola Yip, [facility] 07/05/2021 F41.9 Anxiety disorder, unspecified An n Viola Yip, [facility] 07/05/2021 D50.9 Iron deficiency anemia, unspecif ied Kathleen Viola Yip, [facility] 07/05/2021 K50.918 Crohn's disease, unspecified, wi th other complication Kathleen Viola Yip, [facility] 07/05/2021 Z93.2 Ileostomy status Kathleen Gaming, [facility] 07/05/2021 M85.80 Other specified disorders of bon e density and structure, uns Kathleen Rod Cobb, [facility] 07/05/2021 E78.1 Pure hyperglyceridemia Kathleen Garcia ne, [facility] 04/27/2021 N18.31 Chronic kidney disease, stage 3a Dc Chavez MD 04/27/2021 K21.9 Gastro-esophageal reflux disease without esophagitis Dc Chavez MD 04/27/2021 E78.00 Pure hypercholesterolemia, unspe cified Dc Cahvez MD 03/30/2021 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 Kathleen Gaming, [facility] 03/30/2021 N18.31 Chronic kidney disease, stage 3a Kathleen Gaming, [facility] 03/30/2021 D69.6 Thrombocytopenia, unspecified An n Le Cobb, [facility] 03/30/2021 K21.9 Gastro-esophageal reflux disease without esophagitis Kathleen Gaming, [facility] 03/30/2021 E78.00 Pure hypercholesterolemia, unspe cified Kathleen Le Cobb, [facility] 03/30/2021 E55.9 Vitamin D deficiency, unspecifie d Kathleen Le Cobb, [facility] 03/30/2021 F41.9 Anxiety disorder, unspecified An n Le Cobb, [facility] 03/30/2021 D50.9 Iron deficiency anemia, unspecif ied Kathleen Le Cobb, [facility] 03/30/2021 K50.918 Crohn's disease, unspecified, wi th other complication Kathleen Le Cobb, [facility] 03/30/2021 N95.2 Postmenopausal atrophic vaginiti s Kathleen Le Cobb, [facility] 03/30/2021 E78.2 Mixed hyperlipidemia Kathleen Le Cobb , [facility] 03/30/2021 Z93.2 Ileostomy status Kathleen Le Cobb, P 03/22/2021 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 Dc Chavez MD 03/22/2021 N18.31 Chronic kidney disease, stage 3a Dc Chavez MD 03/22/2021 K21.9 Gastro-esophageal reflux disease without esophagitis Dc Chavez MD 03/22/2021 E78.00 Pure hypercholesterolemia, unspe cified Dc Chavez MD 02/01/2021 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 Kathleen Le Cobb, [facility] 02/01/2021 N18.31 Chronic kidney disease, stage 3a Kathleen Le Cobb, [facility] 02/01/2021 Z93.2 Ileostomy status Kathleen Le Cobb, P 02/01/2021 K21.9 Gastro-esophageal reflux disease without esophagitis Kathleen Le Cobb, [facility] 02/01/2021 E78.00 Pure hypercholesterolemia, unspe cified Kathleen Le Cobb, [facility] 02/01/2021 E55.9 Vitamin D deficiency, unspecifie d Kathleen Le Cobb, [facility] 02/01/2021 F41.9 Anxiety disorder, unspecified An n Le Cobb, [facility] 02/01/2021 D50.9 Iron deficiency anemia, unspecif ied Kathleen Le Cobb, [facility] 02/01/2021 K50.918 Crohn's disease, unspecified, wi th other complication Kathleen Le Cobb, [facility] 02/01/2021 H93.13 Tinnitus, bilateral Kathleen Le Cobb, JOHN 02/01/2021 H61.23 Impacted cerumen, bilateral JOHN Mcneill Plan of Treatment Future Appointment(s):* 10/05/2021 8:00 am - JOHN Mcneill at [facility] * 03/28/2022 9:00 am - Nurse #2 at [facility] * 03/28/2022 9:20 am - JOHN Mcneill at [facility] 07/05/2021 - JOHN Mcneill* E11.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abetic nephropathy* Comments:* Last A1C at goal. * N18.31 Chronic kidney disease, stage 3a* Comments:* Last BMP acceptable. * K21.9 Gastro-esophageal reflux disease without esophagitis* Comments:* asymptomatic on PPI * E55.9 Vitamin D deficiency, unspecified* Comments:* continue supplementation. * F41.9 Anxiety disorder, unspecified* Comments:* Had a recent bout with increased anxiety due to the situation of having Her dog put to sleep and the move. However, is doing well now on the Bupropion. * D50.9 Iron deficiency anemia, unspecified* Comments:* She has been referred to hematology due to her chronic elevated platelets. It looks like from their review they feel it is related to her inflammatory bowel disease. Her most recent iron saturation level remains quite low. She does remain on oral iron. She may be someone who needs to have IV infusions. * K50.918 Crohn's disease, unspecified, with other complication* Comments:* Follows with Dr. Wan. Has had her initial IV infusion of Stelara but is having a difficult time getting her home dose. * Z93.2 Ileostomy status * M85.80 Other specified disorders of bone density and structure, uns* Comments: * Adequate calcium (1000mg) and vitamin D 1000 units daily discussed. * E78.1 Pure hyperglyceridemia* Comments:* Tolerating statin therapy without adverse effects. Functional Status Description No Information Available Mental Status Description No Information Available Referrals Refer to Reason for Referral Status Appt Date [facility] Hematology/Oncology DRUG REGULATORY AFFAIRS SPECIALIST CONSULT FOR ELEVATED PLATELETS Tawnyae nt Notified 05/09/[address] [place] [address] [phone]
--- OUTSIDE RECORDS SUMMARY | 2021-09-20 07:58 | CCD | Continuity of Care Document ---
Author Author Nayely Mcneill Organization Unknown Address [address] [address] Phone [phone] Care Team Providers [facility] Name Role Phone Tray Triplett MD AUTM [phone] Kathleen Estes ANP AUTM [phone] Ruiz Wan MD AUTM [phone] Problems Active Problems Provider Date Pulmonary embolism [...] three times a week 42.500gm Kathleen Gaming [facility] 03/30/2021 Lutein 20mg Capsules 1 by mouth every day Kathleen Gaming [facility] 02/01/2021 Lisinopril 2.5mg Tablets 1 by mouth every day 90tabs E11.21 [facility]2020 Calcium + D 1200MG/D Mercedes Russell M.D. 10/04/2019 Bupropion Hydrochloride ER (XL) 150mg Tablets ER 24HR take 1 tablet by mouth once daily 90tabs Kathleen Gaming [facility] 09/07/2019 Fluticasone Propionate 50mcg/Act Suspension 2 sprays each nostril daily X 2 Weeks Then prn 16gm [facility] 05/18/2019 Fortify Probiotic Womens Extra Strength Capsules Cecilia Scott,[facility] 10/23/20 18 Buspirone HCL 15mg Tablets Take 1 Tablet By Mouth Twice Daily 180tabs Kathleen Gaming [facility] 05/29/2018 Vitamin D 1000Unit Tablets 2 by [facility] 8 Onetouch Ultra Blue Strips use twice daily to check blood sugar dx e11.9 200units [facility] 09/03/2017 Womens One Daily Tablets 1 by mouth every [facility] 6 Metformin HCL ER 500mg Tablets ER 24HR take 2 tablets by mouth once daily with the largest meal of the day 180tabs Kathleen Gaming [facility] 09/24/2016 Aspirin Childrens 81mg Chewtabs 1 by mouth every hs [facility] 09/24/2016 Loperamide HCL 2mg Capsules 4 capsules at bedtime by mouth may take additional 4 capsules in daytime - not to exceed 16mg daily 240caps Kathleen Gaming [facility] 09/24/2016 Ferrous Sulfate 325(65Fe) mg Table ts DR 1 by mouth every day [facility] 6 Melatonin 10mg Tablets 1 hs p o [facility] 09/24/2016 Atorvastatin Calcium 20mg Tablets Take 1 Tablet By Mouth Every Day 90tabs Kathleen Gaming [facility] 08/[address] take 1 capsule by mouth twice daily. maximum daily dose is 2 180caps An n Viola Yip, JOHN 11/22/2010 Claritin 10mg Tablets 1 by mouth every day Unknown Similasan Earache Relief Solution Unknown [place]-3 Drops For Eyes Unknown Budesonide 3mg Caps [...] Code Status Date Vaccine Reaction Lot # 92415 Given 04/11/2020 Pneumovax 23 [id number] Given 04/11/2020 Adacel- Tetanus Diphtheria Pertussis (Age64 & Under) [id number] U-Flu Given 09/26/2019 Influenza,Unspecified U-PneuC Given 06/07/2019 Prevnar 13 [id number] Given 06/07/2019 Shingrix Zoster Vaccine (HZV), Recombinant, Subunit, Adjuvanted 69322 Given 04/07/2019 Shingrix U-Flu Given 09/03/2018 Influenza,Unspecified 40833 Given 07/04/2017 PPD 0 mm read by Apolonia thao, URIEL [id number] Given 09/24/2016 Fluvirin Virus Vaccine 16 [id number] Given 09/02/2003 Pneumovax 23 Vital Signs Date [...] H/L Range Note Laboratory test finding 06/28/2021 [facility] [address] [place] [address] [phone] Erythrocyte Sedimentation Rate 39 mm/hr High 0 -30 Liver Profile 06/28/2021 [facility] nter [address] [place] [address] [phone] Ast/Sgot 20 U/L Normal 7-37 Alt/SGPT 30 U/L Normal 12-78 Alkaline Phosphatase 95 U/L Normal 45-117 Bilirubin,Total 0.4 mg/dL Normal 0.2-1.0 Bilirubin,Direct 0.1 mg/dL Normal 0.0-0.2 Total Protein 6.9 GM/DL Normal 6.4-8.2 Albumin 3.3 GM/DL Normal 3.2-5.2 Albumin/Globulin Ratio 0.9 Low 1.2-2.2 Basic Metabolic Profile 06/28/[address] [address] [phone] Glucose, Fasting 126 mg/dL High 70-100 Blood [...] Normal 8.8-10.2 Total Iron Binding Capacit 06/28/2021 [facility] [address] [place] [address] [phone] Iron (Fe) 33 g/dL Low 50-170 Total Iron Binding Capacity 424 g/dL Normal 250-450 Percent Saturation 7.8 % Low 13.2-45.0 Vitamin B12 & Folate 06/28/2021 [facility] [address] [place] [address] [phone] Vitamin B12 Level 598 pg/mL Normal 2 Folate > 24.0 NG/ML Normal 3 Laboratory test finding 06/28/2021 [facility] [address] [place] [address] [phone] C Reactive Protein Quantitativ 0.64 mg/dL High 0 .00-0.30 Fat Fecal Qualitative 06/28/[address] [address] [phone] Fats Neutral Normal Normal . 4 Fats Total Normal Normal . 5 Laboratory test finding 06/28/[address] [address] [phone] Pancreatic Elastase Stool TNP Normal 6 Calprotectin Stool 40 ug/g Normal 0-120 7 CBC With Differential 06/28/[address] [address] [phone] White Blood Count 10.4 10 High 4.0-10.0 [...] 36.0-66.0 Lymph % 21.9 % Low 24.0-44.0 Traill % 8.1 % High 2.0-8.0 Eos % 0.7 % Normal 0.0-3.0 Baso % 0.6 % Normal 0.0-1.0 Immature Granulocyte % 0.5 % Normal 0-3.0 Nucleated Red Blood Cell % 0.0 % Normal 0-0 Neutrophils # 7.1 10 Normal 1.5-8.5 Lymph # 2.3 10 Normal 1.5-5.0 Traill # 0.9 10 High 0.0-0.8 Eos # 0.1 10 Normal 0.0-0.5 Baso # 0.1 10 Normal 0.0-0.2 CBC With Differential 05/09/[address] [address] [phone] White Blood Count 15.0 10 High 4.0-10.0 [...] 36.0-66.0 Lymph % 5.4 % Low 24.0-44.0 Traill % 0.7 % Low 2.0-8.0 Eos % 0.0 % Normal 0.0-3.0 Baso % 0.1 % Normal 0.0-1.0 Immature Granulocyte % 1.3 % Normal 0-3.0 Nucleated Red Blood Cell % 0.0 % Normal 0-0 Neutrophils # 13.9 10 High 1.5-8.5 Lymph # 0.8 10 Low 1.5-5.0 Traill # 0.1 10 Normal 0.0-0.8 Eos # 0.0 10 Normal 0.0-0.5 Baso # 0.0 10 Normal 0.0-0.2 Laboratory test finding 05/09/2021 [facility] [address] [place] [address] [phone] Jak2 Mutations For Path Sendou See Pathology Re <SEE NOTE> Normal 8 BCR/Abl Screen For CML Path 05/09/[address] [address] [phone] BCR/Abl Screen For CML Path So See Pathology Re <SEE NOTE> Normal 9 Laboratory test finding 05/09/[address] [id number] [phone] Vitamin B12 Level 580 pg/mL Normal 247-911 10 Ferritin 19 NG/ML Normal 8-252 Total Iron Binding Capacit 05/09/[address] [id number] [phone] Iron (Fe) 139 g/dL Normal 50-170 Total Iron Binding Capacity 494 g/dL High 250-450 Percent Saturation 28.1 % Normal 13.2-45.0 Comprehensive Metabolic Profil 05/09/[address] 0157223 [phone] Glucose, Fasting 121 mg/dL High 70-100 Blood [...] 0.8 Low 1.2-2.2 Complete Blood Count 03/30/2021 [facility] [employer]: [place] [address] [phone] WBC 9.2 x10*3/UL 4.1 - 10.9 12 [...] 2.0 - 7.8 Laboratory test finding 03/30/2021 [facility], [employer]: Dr Dc Chavez [place] [id number] [phone] Magnesium 1.9 mg/dL 1.8 - 2.4 Lipid Profile 03/30/2021 [facility] , [employer]: Dr Dc Chavez [place] [id number] [phone] Cholesterol 143 mg/dL 131 - 200 Triglycerides 105 mg/dL 30 - 150 HDL Cholesterol 89 mg/dL High 35 - 60 LDL (Calculated) 33 CALC Low 50 - 159 Comprehensive Chem Profile 03/30/2021 [facility] [employer]: [place] [address] [phone] Glucose 94 mg/dL 74 - 99 13 [...] >= 60 mL/min >60 14 A1c 03/30/2021 [facility] [employer]: [place] [address] [phone] Hba1c 6.0 % High <5.7 15 Est Avg Glucose 125 mg/dL High 60 - 110 Laboratory test finding 02/22/2021 [facility] [address] [place] [address] [phone] Blood Urea Nitrogen 16 mg/dL Normal 7-18 Creatinine With GFR 02/22/2021 [facility] nter [address] [place] [address] [phone] Creatinine For GFR 0.80 mg/dL Normal 0.55-1.30 Glomerular Filtration Rate > 60.0 Normal >45 1 6 CBC With Differential 02/06/2021 [place] [address] [place] [address] [phone] White Blood Count 10.1 10 High 4.0-10.0 [...] 36.0-66.0 Lymph % 20.5 % Low 24.0-44.0 Traill % 7.0 % Normal 2.0-8.0 Eos % 1.1 % Normal 0.0-3.0 Baso % 0.6 % Normal 0.0-1.0 Immature Granulocyte % 0.4 % Normal 0-3.0 Nucleated Red Blood Cell % 0.0 % Normal 0-0 Neutrophils # 7.1 10 Normal 1.5-8.5 Lymph # 2.1 10 Normal 1.5-5.0 Traill # 0.7 10 Normal 0.0-0.8 Eos # 0.1 10 Normal 0.0-0.5 Baso # 0.1 10 Normal 0.0-0.2 Laboratory test finding 02/06/[address] [address] [phone] Erythrocyte Sedimentation Rate 44 mm/hr High 0 -30 Total Iron Binding Capacit 02/06/[address] [address] [phone] Iron (Fe) 37 g/dL Low 50-170 Total Iron Binding Capacity 383 g/dL Normal 250-450 Percent Saturation 9.7 % Low 13.2-45.0 Vitamin B12 & Folate 02/06/2021 [facility] enter [address] [place] [address] [phone] Vitamin B12 Level 764 pg/mL Normal 17 Folate 20.3 NG/ML Normal 18 Laboratory test finding 02/06/[address] [address] [phone] C Reactive Protein Quantitativ 0.66 mg/dL High 0 .00-0.30 Quanteferon TB Gold Test 02/06/[address] [address] [phone] QuantiFERON Criteria (SEE NOTE) Normal . 19 QuantiFERON TB1 Ag Value 0.05 IU/mL Normal . QuantiFERON TB2 Ag Value 0.05 IU/mL Normal . QuantiFERON Nil Value 0.06 IU/mL Normal . QuantiFERON Mitogen Value >10.00 IU/mL Normal . QuantiFERON-TB Gold Plus Negative Normal Negative 20 Laboratory test finding 02/06/[address] [address] [phone] Hepatitis B Surf AB Quant 4.9 mIU/mL Low Immuni ty>9.9 21 Hepatitis B Core Antibody Igg Negative Normal Negative 22 Prometh Monitr Crohns's Disease 02/06/2021 [address] [place] [address] [phone] Monitr Crohn's Disease SEE SEPARATE REP <SEE NOTE> No rmal 23 IBD Reflex Crohns Prognostic 02/06/2021 [facility] [address] [place] [address] [phone] Ibdser1 SEE SEPARATE REP <SEE NOTE> Normal 24 Crohn1 SEE SEPARATE REP <SEE NOTE> Normal 25 1 Units are mL/min/1.73 m2 Chronic Kidney Disease Staging per NKF: Stage I & II GFR >=60 Normal to Mildly Decreased Stage III GFR 30-59 Moderately Decreased Stage IV GFR 15-29 Severely Decreased Stage V GFR <15 Very Little GFR Left ESRD GFR <15 on [employer]ILDING SERVICES ENGINEER 2 VITAMIN B12 NORMAL RANGE NORMAL 247 - 911 PG/ML INDETERMINATE 211 - 246 PG/ML DEFICIENT LESS THAN 211 PG/ML 3 FOLATE NORMAL RANGE NORMAL GREATER THAN 5.4 NG/ML INDETERMINATE 3.4-5.4 NG/ML DEFICIENT LESS THAN 3.4 NG/ML 4 Normal (<60 Droplets/HPF) 5 Normal (<100 Droplets/HPF) 6 Test not performed. Consiste ncy of stool specimen too watery for analysis. TEST: [id number] Pancreatic Elastase, Fecal Testing performed at reference lab . Report copy to follow on a separate form. 07/10/21 REF LAB#:[id number] Concentration Interpreta tion Follow-Up <16 - 50 ug/g Normal None >50 -120 ug/g Borderline Re-evaluate in 4-6 weeks >120 ug/g Abnormal Repeat as clinically indicated 8 See Pathology Report Specimen Collection for Pathology Reference Lab Testing. Refer to [facility] Pathology Report for Results: [id number] See Pathology Report Specimen Collection for Pathology Reference Lab Testing. Refer to [facility] Pathology Report for Results:[id number] VITAMIN B12 NORMAL RANGE NORMAL 247 [...] Little GFR Left ESRD GFR <15 on BUILDING SERVICES ENGINEER 12 NOTE: CBC VERIFIED 13 100-125 mg/dL PRE-DIABET ES/FASTING >126 mg/dL DIABETES/FASTING 14 CHRONIC KIDNEY DISEASE STAGI NG PER NKF STAGE I & II GFR >= 60 NORMAL TO MILDLY DECREASED STAGE III GFR 30-59 MODERATELY DECREASED STAGE IV GFR 15-29 SEVERELY DECREASED STAGE V GFR <15 VERY LITTLE GFR LEFT ESRD GFR <15 ON BUILDING SERVICES ENGINEER 15 Lab Result Notes: Pre-Diabetes 5.7 - 6.4 % Diabetes = or > 6.5% 16 Units are mL/min/1.73 m2 Chronic Kidney Disease Staging per NKF: Stage I & II GFR >=60 Normal to Mildly Decreased Stage III GFR 30-59 Moderately Decreased Stage IV GFR 15-29 Severely Decreased Stage V GFR <15 Very Little GFR Left ESRD GFR <15 on BUILDING SERVICES ENGINEER 17 VITAMIN B12 NORMAL RANGE NORMAL 247 [...] interferon gamma. Chemiluminescence immunoassay methodology Performed at: [facility] [employer] [id number] [employer]: Leonor Flores MD, Phone: [phone] Status of Immunity Anti-HBs Level - Inconsistent with Immunity 0.0 - 9.9 Consistent with Immunity >9.9 22 Performed at: [facility] [employer] [id number] [employer]: Leonor Flores MD, Phone: [phone] SEE SEPARATE REPORT 24 SEE SEPARATE REPORT 25 SEE SEPARATE REPORT Testing performed at reference lab . Report copy to follow on a separate form. 02/22/21 REF LAB#:[id number] Procedures Date Code Description Status 07/05/2021 58471 Office/Outpatient Established Lo w MDM 20-29 Min Completed 04/27/2021 49270 Chronic Care MGMT 20 Mins Clinical Staff Time Per Calendar Month Completed 04/27/2021 71900 Chronic Care Management Services Ea Addl 20 Min Completed 03/30/2021 66319 Office/Outpatient Established Mo d MDM 30-39 Min Completed 03/22/2021 73879 Chronic Care MGMT 20 Mins Clinical Staff Time Per Calendar Month Completed 02/01/2021 24993 Office/Outpatient Established Lo w MDM 20-29 Min Completed 12/13/2020 [id number] Diabetic Retinal Eye Exam Comple [facility] 05/09/2020 [id number] Bone Mineral Density Test Comple [facility] 05/09/2020 03385022 Mammogram Completed 07/29/2019 496658715 Diabetic Retinal Eye Exam Comple [facility] 12/02/2017 [id number] Bone Mineral Density Test Comple [facility] 12/02/2017 30937091 Mammogram Completed 09/26/2016 88422491 Mammogram Completed 05/09/2016 04096976 Mammogram Completed 03/14/2014 60776332 Mammogram Completed 11/08/2011 13963574 Mammogram Completed 11/08/2011 212415238 Bone Mineral Density Test Comple [facility] 10/05/2010 683595238 Diabetic Foot Exam Completed 08/22/2010 50908472 Mammogram Completed 09/14/2008 669514878 Bone Mineral Density Test Comple [facility] 07/31/2006 20491197 Mammogram Completed Medical Devices Description No Information Available Encounters Type Date Location Provider Dx Diagnosis Office Visit 07/05/2021 10:20a [facility] Kathleen Ferris, [employer] E11.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abetic [...] E78.1 Pure hyperglyceridemia Office Visit 03/30/2021 9:00a [facility] 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 N18.31 Chronic kidney disease, stag e 3a Z93.2 Ileostomy status K21.9 Gastro-esophageal reflux dis ease without esophagitis E78.00 Pure hypercholesterolemia, u nspecified E55.9 Vitamin D deficiency, unspec ified F41.9 Anxiety disorder, unspecifie d D50.9 Iron deficiency anemia, [facility] K50.918 Crohn's disease, unspecified , with other complication H93.13 Tinnitus, bilateral H61.23 Impacted cerumen, bilateral Assessments Date Code Description Provider 07/05/2021 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 Kathleen Gaming, [facility] 07/05/2021 N18.31 Chronic kidney disease, stage 3a Kathleen Gaming [facility] 07/05/2021 K21.9 Gastro-esophageal reflux disease without esophagitis Kathleen Gaming [facility] 07/05/2021 E55.9 Vitamin D deficiency, unspecifie d Kathleen Gaming [facility] 07/05/2021 F41.9 Anxiety disorder, unspecified An n Viola Yip, [facility] 07/05/2021 D50.9 Iron deficiency anemia, unspecif ied Kathleen Gaming [facility] 07/05/2021 K50.918 Crohn's disease, unspecified, wi th other complication Kathleen Gaming [facility] 07/05/2021 Z93.2 Ileostomy status Kathleen Gaming [facility] 07/05/2021 M85.80 Other specified disorders of bon e density and structure, uns Kathleen Gaming, [facility] 07/05/2021 E78.1 Pure hyperglyceridemia Kathleen Viola Ramirez ne, [facility] 04/27/2021 N18.31 Chronic kidney disease, stage 3a Dc Chavez MD 04/27/2021 K21.9 Gastro-esophageal reflux disease without esophagitis Dc Chavez MD 04/27/2021 E78.00 Pure hypercholesterolemia, unspe cified Dc Chavez MD 03/30/2021 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 Kathleen Gaming, [facility] 03/30/2021 N18.31 Chronic kidney disease, stage 3a Kathleen Viola Yip, [facility] 03/30/2021 D69.6 Thrombocytopenia, unspecified An n Viola Yip, [facility] 03/30/2021 K21.9 Gastro-esophageal reflux disease without esophagitis Kathleen Gaming, [facility] 03/30/2021 E78.00 Pure hypercholesterolemia, unspe cified Kathleen Gaming, [facility] 03/30/2021 E55.9 Vitamin D deficiency, unspecifie d Kathleen Viola Yip, [facility] 03/30/2021 F41.9 Anxiety disorder, unspecified An n Viola Yip, [facility] 03/30/2021 D50.9 Iron deficiency anemia, unspecif ied Kathleen Gaming, [facility] 03/30/2021 K50.918 Crohn's disease, unspecified, wi th other complication Kathleen Gaming, [facility] 03/30/2021 N95.2 Postmenopausal atrophic vaginiti s Kathleen Viola Yip, [facility] 03/30/2021 E78.2 Mixed hyperlipidemia Kathleen Viola Yip , [facility] 03/30/2021 Z93.2 Ileostomy status Kathleen Gaming, [facility] 03/22/2021 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 Dc Chavez MD 03/22/2021 N18.31 Chronic kidney disease, stage 3a Dc Chavez MD 03/22/2021 K21.9 Gastro-esophageal reflux disease without esophagitis Dc Chavez MD 03/22/2021 E78.00 Pure hypercholesterolemia, unspe cified Dc Chavez MD 02/01/2021 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 Kathleen Gaming, [facility] 02/01/2021 N18.31 Chronic kidney disease, stage 3a Kathleen Gaming, [facility] 02/01/2021 Z93.2 Ileostomy status Kathleen Gaming, [facility] 02/01/2021 K21.9 Gastro-esophageal reflux disease without esophagitis Kathleen Gaming, [facility] 02/01/2021 E78.00 Pure hypercholesterolemia, unspe cified Kathleen Gaming, [facility] 02/01/2021 E55.9 Vitamin D deficiency, unspecifie d Kathleen Gaming, [facility] 02/01/2021 F41.9 Anxiety disorder, unspecified An n Viola Theodora, [facility] 02/01/2021 D50.9 Iron deficiency anemia, unspecif ied Kathleen Gaming, [facility] 02/01/2021 K50.918 Crohn's disease, unspecified, wi th other complication Kathleen Gaming, [facility] 02/01/2021 H93.13 Tinnitus, bilateral Kathleen Gaming, [facility] 02/01/2021 H61.23 Impacted cerumen, bilateral JOHN Mcneill Plan of Treatment Future Appointment(s):* 10/05/2021 8:00 am - JOHN Mcneill at [facility] * 03/28/2022 9:00 am - Nurse #2 at [facility] * 03/28/2022 9:20 am - JOHN Mcneill at [facility] 07/05/2021 - JOHN Mcneill* E11.21 [...] to Reason for Referral Status Appt Date [facility] Hematology/Oncology PLASTIC SHAPER CONSULT FOR ELEVATED PLATELETS Tawnyacharles shashank Notified 05/09/2021 [address] [place] [address] [phone]
--- OUTSIDE RECORDS SUMMARY | 2021-09-20 07:58 | CCD | Continuity of Care Document ---
Author Author Nayely LAINEZ M.D. Organization Unknown Address [address] [facility], [address] [place] [address] Phone [phone] Care Team Providers Care Pack Worker Name Role Phone Mercedes Thomas M.D. AUTM [phone] Kathleen Estes AUTM [phone] Octavio Matson AUTM [phone] Problems Description No Information Available Social History Type Date Description Comments Sex Unknown ETOH Use 2 A Week Tobacco Use Start: Unknown Non Smoker Allergies, Adverse Reactions, Alerts Active Allergies Criticality Reaction | Severity Comments Date Tetracycline Unable to assess criticality 01/26/2021 Medications Active Medications SIG Qnty Indications Ordering Provide r Date Stelara 90mg/ml Soln Prefill Syrin ge 90 mg dose, subcutaneous injection every 8 weeks ( to be started 8 weeks after the iv induction dose). 2ml K50.812 Ruiz Lainez M.D. 02/12 Fish Oil 1400MG Softgel 2caps po qd Unknown [place] 3 Eye Drops instill bid Unknown 0 000 Ocuvite-Lutein Capsules 1cap po qd Unknown Omeprazole 20mg Capsules DR 1cap by mouth twice a day 60caps Ruiz Lainez M.D. Womens One Daily Tablets 1ta b po qd Unknown Vitamin D 25mcg (1000 Ut) Tablets 2tabs po qd Unknown Aspirin [address] 1t ab po qd Unknown Ferrous Sulfate 325(65Fe) mg Table ts DR 1tab po qd Unknown Melatonin 10mg Capsules 1cap po qhs Unknown Fortify Probiotic Womens Extra Strength Capsules DR 1cap po qd Unknown Calcium + D 1200MG/D 1tab po qd Unknown Atorvastatin Calcium 20mg Tablets 1tab po qd Unknown Metformin HCL 500mg Tablets 2tabs (1000mg) po qd Unknown Buspirone HCL 15mg Tablets 1tab po bid Unknown Bupropion Hydrochloride ER (XL) 150mg Tablets ER 24HR 1tab po qd Unknown Lisinopril 2.5mg Tablets 1tab po qd Unknown History Medications Prednisone 10mg Tablets take 40 mg dose daily for 20 days, then 20 mg dose for 5 days and then 10 mg dose for 5 days and then 5 mg dose for 6 days. 98tabs K50.812 Ruiz Lainez M.D. 04/20/2021 - 06/13/2021 Immunizations Description No Information Available Vital Signs Date Vital Result Comment 08/14/2021 12:23pm BP Systolic 112 mmHg BP Diastolic 64 mmHg Height 60.5 inches 5'0.50" Weight 124.00 lb BMI (Body Mass Index) 23.8 kg/m2 [place] Body Weight 100 lb Weight 56.246 kg BSA (Body Surface Area) 1.53 m2 06/14/2021 12:11pm BP Systolic 126 mmHg BP Diastolic 62 mmHg Height 60.5 inches 5'0.50" Weight 122.00 lb BMI (Body Mass Index) 23.4 kg/m2 [place] Body Weight 100 lb Weight 55.339 kg BSA (Body Surface Area) 1.52 m2 Results Test Acquired Date Facility Test Result H/L Range Note CBC With Differential 06/28/2021 [facility] Main Lab [address] [place] [address] [phone] White Blood Count 10.4 10 High 4.0-10.0 [...] 36.0-66.0 Lymph % 21.9 % Low 24.0-44.0 [place] % 8.1 % High 2.0-8.0 Eos % 0.7 % Normal 0.0-3.0 Baso % 0.6 % Normal 0.0-1.0 Immature Granulocyte % 0.5 % Normal 0-3.0 Nucleated Red Blood Cell % 0.0 % Normal 0-0 Neutrophils # 7.1 10 Normal 1.5-8.5 Lymph # 2.3 10 Normal 1.5-5.0 [place] # 0.9 10 High 0.0-0.8 Eos # 0.1 10 Normal 0.0-0.5 Baso # 0.1 10 Normal 0.0-0.2 Laboratory test finding 06/28/2021 [facility] Main Lab [address] [place] [address] [phone] C Reactive Protein Quantitativ 0.64 mg/dL High 0 .00-0.30 Erythrocyte Sedimentation Rate 39 mm/hr High 0-30 Basic Metabolic Profile 06/28/2021 [facility] Main Lab [address] [place] [address] [phone] Glucose, Fasting 126 mg/dL High 70-100 Blood [...] 8-16 Calcium Level 9.6 mg/dL Normal 8.8-10.2 Liver Profile 06/28/2021 [facility] Main Lab [address] [place] [address] [phone] Ast/Sgot 20 U/L Normal 7-37 Alt/SGPT 30 U/L Normal 12-78 Alkaline Phosphatase 95 U/L Normal 45-117 Bilirubin,Total 0.4 mg/dL Normal 0.2-1.0 Bilirubin,Direct 0.1 mg/dL Normal 0.0-0.2 Total Protein 6.9 GM/DL Normal 6.4-8.2 Albumin 3.3 GM/DL Normal 3.2-5.2 Albumin/Globulin Ratio 0.9 Low 1.2-2.2 Vitamin B12 & Folate 06/28/2021 [facility] enter Main Lab [address] [place] [phone] Vitamin B12 Level 598 pg/mL Normal 2 Folate > 24.0 NG/ML Normal 3 Total Iron Binding Capacit 06/28/2021 [facility] Main Lab [address] [place] [address] [phone] Iron (Fe) 33 g/dL Low 50-170 Total Iron Binding Capacity 424 g/dL Normal 250-450 Percent Saturation 7.8 % Low 13.2-45.0 Laboratory test finding 06/28/2021 [facility] Main Lab [address] [place] [address] [phone] Calprotectin Stool 40 ug/g Normal 0-120 4 Fat Fecal Qualitative 06/28/2021 [facility] Main Lab [address] [place] [address] [phone] Fats Neutral Normal Normal . 5 Fats Total Normal Normal . 6 Laboratory test finding 06/28/2021 [facility] Main Lab [address] [place] [address] [phone] Pancreatic Elastase Stool TNP Normal 7 BUN & Creatinine ([facility]) 02/22/2021 [facility] Main Lab [address] [place] [address] [phone] Blood Urea Nitrogen 16 mg/dL Normal 7-18 Creatinine With GFR 02/22/2021 [facility] Main Lab [address] [place] [address] [phone] Creatinine For GFR 0.80 mg/dL Normal 0.55-1.30 Glomerular Filtration Rate > 60.0 Normal >45 8 1 Units are mL/min/1.73 m2 Chronic Kidney Disease Staging per NKF: Stage I & II GFR >=60 Normal to Mildly Decreased Stage III GFR 30-59 Moderately Decreased Stage IV GFR 15-29 Severely Decreased Stage V GFR <15 Very Little GFR Left ESRD GFR <15 on BIOLOGY TEACHER 2 VITAMIN B12 NORMAL RANGE NORMAL 247 - 911 PG/ML INDETERMINATE 211 - 246 PG/ML DEFICIENT LESS THAN 211 PG/ML 3 FOLATE NORMAL RANGE NORMAL GREATER THAN 5.4 NG/ML INDETERMINATE 3.4-5.4 NG/ML DEFICIENT LESS THAN 3.4 NG/ML 4 Concentration Interpreta tion Follow-Up <16 - 50 ug/g Normal None >50 -120 ug/g Borderline Re-evaluate in 4-6 weeks >120 ug/g Abnormal Repeat as clinically indicated 5 Normal (<60 Droplets/HPF) 6 Normal (<100 Droplets/HPF) 7 Test not performed. Consiste ncy of stool specimen too watery for analysis. TEST: [id number] Pancreatic Elastase, Fecal Testing performed at reference lab . Report copy to follow on a separate form. 07/10/21 REF LAB#:[id number] Units are mL/min/1.73 m2 Chronic Kidney Disease Staging per NKF: Stage I & II GFR >=60 Normal to Mildly Decreased Stage III GFR 30-59 Moderately Decreased Stage IV GFR 15-29 Severely Decreased Stage V GFR <15 Very Little GFR Left ESRD GFR <15 on BIOLOGY TEACHER Procedures Date Code Description Status 08/14/2021 10975 Office/Outpatient Established Mo d MDM 30-39 Min Completed 06/14/2021 59796 Office/Outpatient Established Mo d MDM 30-39 Min Completed 04/20/2021 51580 Office/Outpatient Established Lo w MDM 20-29 Min Completed Medical Devices Description No Information Available Encounters Type Date Location Provider Dx Diagnosis Office Visit 08/14/2021 11:40a [facility] Charlotte Lainez M.D. K50.812 Crohn's disease of both smal l and lg int w intestinal obst Z93.2 Ileostomy status Office Visit 06/14/2021 11:40a [facility] Charlotte Lainez M.D. K50.812 Crohn's disease of both smal l and lg int w intestinal obst Z93.2 Ileostomy status Office Visit 04/20/2021 3:20p [facility] Ruiz Lainez M.D. K50.812 Crohn's disease of both smal l and lg int w intestinal obst Z93.2 Ileostomy status Assessments Date Code Description Provider 08/14/2021 K50.812 Crohn's disease of b oth small and large intestine with intestinal obstruction Ruiz Lainez M.D. 08/14/2021 Z93.2 Ileostomy status Ruiz pichardo M.D. 06/14/2021 K50.812 Crohn's disease of b oth small and large intestine with intestinal obstruction Ruiz Lainez M.D. 06/14/2021 Z93.2 Ileostomy status Ruiz pichardo M.D. 04/20/2021 K50.812 Crohn's disease of b oth small and large intestine with intestinal obstruction Ruiz Lainez M.D. 04/20/2021 Z93.2 Ileostomy status Ruiz pichardo M.D. Plan of Treatment No Information Available Functional Status Description No Information Available Mental Status Description No Information Available Referrals Refer to Dr Reason for Referral Status Appt Date Healthy Lifestyles-Melissa Garrison Please evaluate fo r dietary educated for this patient with permanent ileostomy and high ileostomy output. Patient would benefit from low fiber, low fat and high protein diet. thank you. Created [facility] [place] [address] [phone] Octavio Matson MD ileostomy care due to leakage. [facility] [address] [facility] [address] [phone]
--- OUTSIDE RECORDS SUMMARY | 2021-09-20 07:58 | CCD | Continuity of Care Document ---
Author Author Nayely LAINEZ M.D. Organization Unknown Address [address] [place] [address], [address] [place] [address] Phone [phone] Care Team Providers Care Licensed Optician Name Role Phone Mercedes Thomas M.D. AUTM [phone] Kathleen Estse AUTM [phone] Problems Description No Information Available Social History [...] 1cap po qd Unknown Omeprazole 20mg Capsules 1cap by mouth twice a day 60caps Ruiz Laniez M.D. Womens One Daily Tablets 1ta b po qd Unknown Vitamin D 25mcg (1000 Ut) Tablets 2tabs po qd Unknown Aspirin 81 81mg Tablets 1t ab po qd Unknown Ferrous Sulfate 325(65Fe) mg Table ts 1tab po qd Unknown Melatonin 10mg Capsules [...] K50.812 Ruiz Lainez M.D. 04/20/2021 - 06/13/2021 Stelara 130mg/26ML Solution 260 mg induction dose once. ( to be followed with subcutaneous maintenance dose90 mg every 8 weeks) 52ml Ruiz Lainez M.D. 2020 - 06/13/2021 Immunizations Description No Information Available Vital Signs Date Vital Result Comment 08/14/2021 12:23pm BP Systolic 112 mmHg BP Diastolic 64 mmHg Height 60.5 inches 5'0.50" Weight 124.00 lb BMI (Body Mass Index) 23.8 kg/m2 [place] Body Weight 100 lb Weight 56.246 kg BSA (Body Surface Area) 1.53 m2 06/14/2021 12:11pm BP Systolic 126 mmHg BP Diastolic 62 mmHg Height 60.5 inches 5'0.50" Weight 122.00 lb BMI (Body Mass Index) 23.4 kg/m2 [place] Body Weight 100 lb Weight 55.339 kg BSA (Body Surface Area) 1.52 m2 Results Test Acquired Date Facility Test Result H/L Range Note CBC With Differential 06/28/2021 [facility] Main Lab [address] [place] [address] [phone] White Blood Count 10.4 10 High 4.0-10.0 [...] 36.0-66.0 Lymph % 21.9 % Low 24.0-44.0 [place] % 8.1 % High 2.0-8.0 Eos % 0.7 % Normal 0.0-3.0 Baso % 0.6 % Normal 0.0-1.0 Immature Granulocyte % 0.5 % Normal 0-3.0 Nucleated Red Blood Cell % 0.0 % Normal 0-0 Neutrophils # 7.1 10 Normal 1.5-8.5 Lymph # 2.3 10 Normal 1.5-5.0 [place] # 0.9 10 High 0.0-0.8 Eos # 0.1 10 Normal 0.0-0.5 Baso # 0.1 10 Normal 0.0-0.2 Laboratory test finding 06/28/2021 [facility] Main Lab [address] [place] [address] [phone] C Reactive Protein Quantitativ 0.64 mg/dL High 0 .00-0.30 Erythrocyte Sedimentation Rate 39 mm/hr High 0-30 Basic Metabolic Profile 06/28/2021 [facility] Main Lab [address] [place] [address] [phone] Glucose, Fasting 126 mg/dL High 70-100 Blood [...] 9.6 mg/dL Normal 8.8-10.2 Liver Profile 06/28/2021 [facility] nter Main Lab [address] [place] [address] [phone] Ast/Sgot 20 U/L Normal 7-37 Alt/SGPT 30 U/L Normal 12-78 Alkaline Phosphatase 95 U/L Normal 45-117 Bilirubin,Total 0.4 mg/dL Normal 0.2-1.0 Bilirubin,Direct 0.1 mg/dL Normal 0.0-0.2 Total Protein 6.9 GM/DL Normal 6.4-8.2 Albumin 3.3 GM/DL Normal 3.2-5.2 Albumin/Globulin Ratio 0.9 Low 1.2-2.2 Vitamin B12 & Folate 06/28/2021 [facility] enter Main Lab [address] [place] [address] [phone] Vitamin B12 Level 598 pg/mL Normal 2 Folate > 24.0 NG/ML Normal 3 Total Iron Binding Capacit 06/28/2021 [facility] Main Lab [address] [place] [address] [phone] Iron (Fe) 33 g/dL Low 50-170 Total Iron Binding Capacity 424 g/dL Normal 250-450 Percent Saturation 7.8 % Low 13.2-45.0 Laboratory test finding 06/28/2021 [facility] Main Lab [address] [place] [address] [phone] Calprotectin Stool 40 ug/g Normal 0-120 4 Fat Fecal Qualitative 06/28/2021 [facility] Main Lab [address] [place] [address] [phone] Fats Neutral Normal Normal . 5 Fats Total Normal Normal . 6 Laboratory test finding 06/28/2021 [facility] Main Lab [address] [place] [address] [phone] Pancreatic Elastase Stool TNP Normal 7 BUN & Creatinine ([facility]) 02/22/2021 [facility] Main Lab [address] [place] [address] [phone] Blood Urea Nitrogen 16 mg/dL Normal 7-18 Creatinine With GFR 02/22/2021 [facility] Main Lab [address] [place] [address] [phone] Creatinine For GFR 0.80 mg/dL Normal 0.55-1.30 Glomerular Filtration Rate > 60.0 Normal >45 8 1 Units are mL/min/1.73 m2 Chronic Kidney Disease Staging per NKF: Stage I & II GFR >=60 Normal to Mildly Decreased Stage III GFR 30-59 Moderately Decreased Stage IV GFR 15-29 Severely Decreased Stage V GFR <15 Very Little GFR Left ESRD GFR <15 on SADDLE CUTTER 2 VITAMIN B12 NORMAL RANGE NORMAL 247 [...] stool specimen too watery for analysis. TEST: [id number] Pancreatic Elastase, Fecal Testing performed at reference lab . Report copy to follow on a separate form. 07/10/21 REF LAB#:[id number] Units are mL/min/1.73 m2 Chronic Kidney Disease Staging per NKF: Stage I & II GFR >=60 Normal to Mildly Decreased Stage III GFR 30-59 Moderately Decreased Stage IV GFR 15-29 Severely Decreased Stage V GFR <15 Very Little GFR Left ESRD GFR <15 on SADDLE CUTTER Procedures Date Code Description Status 06/14/2021 20139 Office/Outpatient Established Mo d MDM 30-39 Min Completed 04/20/2021 76469 Office/Outpatient Established Lo w MDM 20-29 Min Completed Medical Devices Description No Information Available Encounters Type Date Location Provider Dx Diagnosis Office Visit 06/14/2021 11:40a [facility] Charlotte Lainez M.D. K50.812 Crohn's disease of both smal l and lg int w intestinal obst Z93.2 Ileostomy status Office Visit 04/20/2021 3:20p [facility] Charlotte Laniez M.D. K50.812 Crohn's disease of both smal l and lg int w intestinal obst Z93.2 Ileostomy status Assessments Date Code Description Provider 06/14/2021 K50.812 Crohn's disease of b oth [...] Mental Status Description No Information Available Referrals Description No Information Available
--- OUTSIDE RECORDS SUMMARY | 2021-09-20 07:58 | CCD | Continuity of Care Document ---
Author Author Nayely LAINEZ M.D. Organization Unknown Address [address], [address] [place] [address] Phone [phone] Care Team Providers Care [employer] Organist Name Role Phone Mercedes Thomas M.D. AUTM [phone] Kathleen Estes AUTM [phone] Problems Description No Information Available Social History Type Date Description Comments Sex Unknown ETOH Use 2 A Week Tobacco Use Start: Unknown Non Smoker Allergies, Adverse Reactions, Alerts Active Allergies Reaction Severity Comments Date Tetracycline 01/26/2021 Medications Active Medications SIG Qnty Indications [...] qd Unknown Aspirin [address] Edwardst ab po qd Unknown Ferrous Sulfate 325(65Fe) [...] 52ml Ruiz Lainez M.D. 2020 - 06/13/[address] Part 3 tabs by mouth once a day before dinner for 4 weeks then 2 tabs daily for next 4 weeks and then 1 tablet daily last 4 week. 180caps K50.812 Ruiz tanner M.D. 01/26/2021 - 04/19/2021 Entyvio 300mg Solution Rec iv 300 mg infusion at 0, 2 and 6 weeks and then every 8 weeks. 3units K50.812 Ruiz Lainez M.D. 01/26/2021 - 04/20/2021 Immunizations Description No Information Available Vital Signs Date Vital Result Comment 06/14/2021 12:11pm BP Systolic 126 mmHg BP Diastolic 62 mmHg Height 60.5 inches 5'0.50" Weight 122.00 lb BMI (Body Mass Index) 23.4 kg/m2 Florien Body Weight 100 lb Weight 55.339 kg BSA (Body Surface Area) 1.52 m2 04/20/2021 4:12pm BP Systolic 118 mmHg BP Diastolic 60 mmHg Height 60.5 inches 5'0.50" Weight 117.00 lb BMI (Body Mass Index) 22.5 kg/m2 Florien Body Weight 100 lb Weight 53.071 kg BSA (Body Surface Area) 1.50 m2 Results Test Acquired Date Facility Test Result H/L Range Note Laboratory test finding 06/28/2021 [facility] Main Lab [address] [place] [address] [phone] C Reactive Protein Quantitativ 0.64 mg/dL High 0 .00-0.30 Erythrocyte Sedimentation Rate 39 mm/hr High 0-30 Basic Metabolic Profile 06/28/2021 [facility] Main Lab [address] [place] [address] [phone] Glucose, Fasting 126 mg/dL High 70-100 Blood [...] 9.6 mg/dL Normal 8.8-10.2 Liver Profile 06/28/2021 [facility] Main Lab [address] [place] [address] [phone] Ast/Sgot 20 U/L Normal 7-37 Alt/SGPT 30 U/L Normal 12-78 Alkaline Phosphatase 95 U/L Normal 45-117 Bilirubin,Total 0.4 mg/dL Normal 0.2-1.0 Bilirubin,Direct 0.1 mg/dL Normal 0.0-0.2 Total Protein 6.9 GM/DL Normal 6.4-8.2 Albumin 3.3 GM/DL Normal 3.2-5.2 Albumin/Globulin Ratio 0.9 Low 1.2-2.2 Vitamin B12 & Folate 06/28/2021 [facility] enter Main Lab [address] [place] [address] [phone] Vitamin B12 Level 598 pg/mL Normal 2 Folate > 24.0 NG/ML Normal 3 Total Iron Binding Capacit 06/28/2021 [facility] Main Lab [address] [place] [address] [phone] Iron (Fe) 33 g/dL Low 50-170 Total Iron Binding Capacity 424 g/dL Normal 250-450 Percent Saturation 7.8 % Low 13.2-45.0 Laboratory test finding 06/28/2021 [facility] Main Lab [address] [place] [address] [phone] Calprotectin Stool 40 ug/g Normal 0-120 4 Fat Fecal Qualitative 06/28/2021 [facility] Main Lab [address] [place] [address] [phone] Fats Neutral Normal Normal . 5 Fats Total Normal Normal . 6 Laboratory test finding 06/28/2021 [facility] Main Lab [address] [place] [address] [phone] Pancreatic Elastase Stool TNP Normal 7 CBC With Differential 06/28/2021 [facility] Main Lab [address] [place] [address] [phone] White Blood Count 10.4 10 High 4.0-10.0 [...] 36.0-66.0 Lymph % 21.9 % Low 24.0-44.0 Dixie % 8.1 % High 2.0-8.0 Eos % 0.7 % Normal 0.0-3.0 Baso % 0.6 % Normal 0.0-1.0 Immature Granulocyte % 0.5 % Normal 0-3.0 Nucleated Red Blood Cell % 0.0 % Normal 0-0 Neutrophils # 7.1 10 Normal 1.5-8.5 Lymph # 2.3 10 Normal 1.5-5.0 Dixie # 0.9 10 High 0.0-0.8 Eos # 0.1 10 Normal 0.0-0.5 Baso # 0.1 10 Normal 0.0-0.2 Creatinine With GFR 02/22/2021 [facility] nter Main Lab [address] [place] [address] [phone] Creatinine For GFR 0.80 mg/dL Normal 0.55-1.30 Glomerular Filtration Rate > 60.0 Normal >45 8 BUN & Creatinine ([facility]) 02/22/2021 [facility] Main Lab [address] [place] [address] [phone] Blood Urea Nitrogen 16 mg/dL Normal 7-18 CBC With Differential 02/06/2021 [facility] Main Lab [address] [place] [address] [phone] White Blood Count 10.1 10 High 4.0-10.0 [...] 36.0-66.0 Lymph % 20.5 % Low 24.0-44.0 Dixie % 7.0 % Normal 2.0-8.0 Eos % 1.1 % Normal 0.0-3.0 Baso % 0.6 % Normal 0.0-1.0 Immature Granulocyte % 0.4 % Normal 0-3.0 Nucleated Red Blood Cell % 0.0 % Normal 0-0 Neutrophils # 7.1 10 Normal 1.5-8.5 Lymph # 2.1 10 Normal 1.5-5.0 Dixie # 0.7 10 Normal 0.0-0.8 Eos # 0.1 10 Normal 0.0-0.5 Baso # 0.1 10 Normal 0.0-0.2 Total Iron Binding Capacit 02/06/2021 [facility] Main Lab [address] [place] [address] [phone] Iron (Fe) 37 g/dL Low 50-170 Total Iron Binding Capacity 383 g/dL Normal 250-450 Percent Saturation 9.7 % Low 13.2-45.0 Vitamin B12 & Folate 02/06/2021 [facility] Main Lab [address] [place] [address] [phone] Vitamin B12 Level 764 pg/mL Normal 9 Folate 20.3 NG/ML Normal 10 Laboratory test finding 02/06/2021 [facility] Main Lab [address] [place] [address] [phone] Erythrocyte Sedimentation Rate 44 mm/hr High 0 -30 C Reactive Protein Quantitativ 0.66 mg/dL High 0.00-0.30 IBD Reflex Crohns Prognostic 02/06/2021 [facility] Main Lab [address] [place] [address] [phone] Ibdser1 SEE SEPARATE REP <SEE NOTE> Normal 11 Crohn1 SEE SEPARATE REP <SEE NOTE> Normal 12 Laboratory test finding 02/06/2021 [facility] Main Lab [address] [place] [address] [phone] Hepatitis B Surf AB Quant 4.9 mIU/mL Low Immuni ty>9.9 13 Hepatitis B Core Antibody Igg Negative Normal Negative 14 Quanteferon TB Gold Test 02/06/2021 [facility] Main Lab [address] [place] [address] [phone] QuantiFERON Criteria (SEE NOTE) Normal . 15 QuantiFERON TB1 Ag Value 0.05 IU/mL Normal . QuantiFERON TB2 Ag Value 0.05 IU/mL Normal . QuantiFERON Nil Value 0.06 IU/mL Normal . QuantiFERON Mitogen Value >10.00 IU/mL Normal . QuantiFERON-TB Gold Plus Negative Normal Negative 16 Prometh Monitr Crohns's Disease 02/06/2021 [facility] Main Lab [address] [place] [address] [place] [address] [phone] Monitr Crohn's Disease SEE SEPARATE REP <SEE NOTE> No rmal 17 1 Units are mL/min/1.73 m2 Chronic Kidney Disease Staging per NKF: Stage I & II GFR >=60 Normal to Mildly Decreased Stage III GFR 30-59 Moderately Decreased Stage IV GFR 15-29 Severely Decreased Stage V GFR <15 Very Little GFR Left ESRD GFR <15 on ELECTROFORMER 2 VITAMIN B12 NORMAL RANGE NORMAL 247 [...] stool specimen too watery for analysis. TEST: [id number] Pancreatic Elastase, Fecal Testing performed at reference lab . Report copy to follow on a separate form. 07/10/21 REF LAB#:[id number] Units are mL/min/1.73 m2 Chronic Kidney Disease Staging per NKF: Stage I & II GFR >=60 Normal to Mildly Decreased Stage III GFR 30-59 Moderately Decreased Stage IV GFR 15-29 Severely Decreased Stage V GFR <15 Very Little GFR Left ESRD GFR <15 on ELECTROFORMER 9 VITAMIN B12 NORMAL RANGE NORMAL 247 - 911 PG/ML INDETERMINATE 211 - 246 PG/ML DEFICIENT LESS THAN 211 PG/ML 10 FOLATE NORMAL RANGE NORMAL GREATER THAN 5.4 NG/ML INDETERMINATE 3.4-5.4 NG/ML DEFICIENT LESS THAN 3.4 NG/ML 11 SEE SEPARATE REPORT 12 SEE SEPARATE REPORT Testing performed at reference lab . Report copy to follow on a separate form. 02/22/21 REF LAB#:[id number] Status of Immunity Anti-HBs Level - Inconsistent with Immunity 0.0 - 9.9 Consistent with Immunity >9.9 14 Performed at: [facility] [address] [id number] [employer] Worker: Leonor Flores MD, Phone: [phone] . The QuantiFERON-TB Gold Plus result [...] interferon gamma. Chemiluminescence immunoassay methodology Performed at: [address] [id number] [employer] Worker: Leonor Flores MD, Phone: [phone] SEE SEPARATE REPORT Procedures Date Code Description Status 06/14/2021 30293 Office/Outpatient Established Mo d MDM 30-39 Min Completed 04/20/2021 02030 Office/Outpatient Established Lo w MDM 20-29 Min Completed 01/26/2021 26278 Office/Outpatient New Moderate M DM 45-59 Minutes Completed Medical Devices Description No Information Available Encounters Type Date Location Provider Dx Diagnosis Office Visit 06/14/2021 11:40a [facility] Pra puja Lainez M.D. K50.812 Crohn's disease of both smal l and lg int w intestinal obst Z93.2 Ileostomy status Office Visit 04/20/2021 3:20p [facility] Pra puja Lainez M.D. K50.812 Crohn's disease of both smal l and lg int w intestinal obst Z93.2 Ileostomy status Office Visit 01/26/2021 2:50p [facility] Ruiz ortega M.D. K50.812 Crohn's disease of both small and lg int w intestinal obst Z93.2 Ileostomy status Assessments Date Code Description Provider 06/14/2021 K50.812 Crohn's disease of b oth small and large intestine with intestinal obstruction Ruiz Lainez M.D. 06/14/2021 Z93.2 Ileostomy status Ruiz pichardo M.D. 04/20/2021 K50.812 Crohn's disease of b oth small and large intestine with intestinal obstruction Ruiz Lainez M.D. 04/20/2021 Z93.2 Ileostomy status Ruiz pichardo M.D. 01/26/2021 K50.812 Crohn's disease of b oth small and large intestine with intestinal obstruction Ruiz Lainez M.D. 01/26/2021 Z93.2 Ileostomy status Ruiz pichardo M.D. Plan of Treatment Future Appointment(s):* 08/14/2021 11:40 am - Ruiz Lainez M.D. at [facility] Functional Status Description No Information Available Mental Status Description No Information Available Referrals Description No Information Available
--- OUTSIDE RECORDS SUMMARY | 2021-09-20 07:59 | CCD ---
Author Author [facility] Organization [facility] Address Unknown Phone Unavailable Care Team Providers Care Worm Packer Name Role Phone LePine, M Kathleen SENIOR WINDOWS SYSTEMS ADMINISTRATOR Unavailable Unavailable LePine, M Kathleen SENIOR WINDOWS SYSTEMS ADMINISTRATOR Unavailable Unavailable LePine, M Kathleen SENIOR WINDOWS SYSTEMS ADMINISTRATOR Unavailable Unavailable LePine, M Kathleen SENIOR WINDOWS SYSTEMS ADMINISTRATOR Unavailable Unavailable LePine, M Kathleen SENIOR WINDOWS SYSTEMS ADMINISTRATOR Unavailable Unavailable LePine, M Kathleen SENIOR WINDOWS SYSTEMS ADMINISTRATOR Unavailable Unavailable LePine, M Kathleen SENIOR WINDOWS SYSTEMS ADMINISTRATOR Unavailable Unavailable LePine, M Kathleen SENIOR WINDOWS SYSTEMS ADMINISTRATOR Unavailable Unavailable LePine, M Kathleen SENIOR WINDOWS SYSTEMS ADMINISTRATOR Unavailable Unavailable LePine, M Kathleen SENIOR WINDOWS SYSTEMS ADMINISTRATOR Unavailable Unavailable LePine, M Kathleen SENIOR WINDOWS SYSTEMS ADMINISTRATOR Unavailable Unavailable LePine, M Kathleen SENIOR WINDOWS SYSTEMS ADMINISTRATOR Unavailable Unavailable LePine, M Kathleen SENIOR WINDOWS SYSTEMS ADMINISTRATOR Unavailable Unavailable LePine, M Kathleen SENIOR WINDOWS SYSTEMS ADMINISTRATOR Unavailable Unavailable LePine, M Kathleen SENIOR WINDOWS SYSTEMS ADMINISTRATOR Unavailable Unavailable LePine, M Kathleen SENIOR WINDOWS SYSTEMS ADMINISTRATOR Unavailable Unavailable LePine, M Kathleen SENIOR WINDOWS SYSTEMS ADMINISTRATOR Unavailable Unavailable LePine, M Kathleen SENIOR WINDOWS SYSTEMS ADMINISTRATOR Unavailable Unavailable LePine, M Kathleen SENIOR WINDOWS SYSTEMS ADMINISTRATOR Unavailable Unavailable LePine, M Kathleen SENIOR WINDOWS SYSTEMS ADMINISTRATOR Unavailable Unavailable LePine, M Kathleen SENIOR WINDOWS SYSTEMS ADMINISTRATOR Unavailable Unavailable LePine, M Kathleen SENIOR WINDOWS SYSTEMS ADMINISTRATOR Unavailable Unavailable LePine, M Kathleen SENIOR WINDOWS SYSTEMS ADMINISTRATOR Unavailable Unavailable LePine, M Kathleen SENIOR WINDOWS SYSTEMS ADMINISTRATOR Unavailable Unavailable LePine, M Kathleen SENIOR WINDOWS SYSTEMS ADMINISTRATOR Unavailable Unavailable LePine, M Kathleen SENIOR WINDOWS SYSTEMS ADMINISTRATOR Unavailable Unavailable LePine, M Kathleen SENIOR WINDOWS SYSTEMS ADMINISTRATOR Unavailable Unavailable LePine, M Kathleen SENIOR WINDOWS SYSTEMS ADMINISTRATOR Unavailable Unavailable LePine, M Kathleen SENIOR WINDOWS SYSTEMS ADMINISTRATOR Unavailable Unavailable LePine, M Kathleen SENIOR WINDOWS SYSTEMS ADMINISTRATOR Unavailable Unavailable LePine, M Kathleen SENIOR WINDOWS SYSTEMS ADMINISTRATOR Unavailable Unavailable LePine, M Kathleen SENIOR WINDOWS SYSTEMS ADMINISTRATOR Unavailable Unavailable LePine, M Kathleen SENIOR WINDOWS SYSTEMS ADMINISTRATOR Unavailable Unavailable LePine, M Kathleen SENIOR WINDOWS SYSTEMS ADMINISTRATOR Unavailable Unavailable LePine, M Kathleen SENIOR WINDOWS SYSTEMS ADMINISTRATOR Unavailable Unavailable LePine, M Kathleen SENIOR WINDOWS SYSTEMS ADMINISTRATOR Unavailable Unavailable LePine, M Kathleen SENIOR WINDOWS SYSTEMS ADMINISTRATOR Unavailable Unavailable LePine, M Kathleen SENIOR WINDOWS SYSTEMS ADMINISTRATOR Unavailable Unavailable LePine, M Kathleen SENIOR WINDOWS SYSTEMS ADMINISTRATOR Unavailable Unavailable LePine, M Kathleen SENIOR WINDOWS SYSTEMS ADMINISTRATOR Unavailable Unavailable LePine, M Kathleen SENIOR WINDOWS SYSTEMS ADMINISTRATOR Unavailable Unavailable LePine, M Kathleen SENIOR WINDOWS SYSTEMS ADMINISTRATOR Unavailable Unavailable LePine, M Kathleen SENIOR WINDOWS SYSTEMS ADMINISTRATOR Unavailable Unavailable LePine, M Kathleen SENIOR WINDOWS SYSTEMS ADMINISTRATOR Unavailable Unavailable LePine, M Kathleen SENIOR WINDOWS SYSTEMS ADMINISTRATOR Unavailable Unavailable LePine, M Kathleen SENIOR WINDOWS SYSTEMS ADMINISTRATOR Unavailable Unavailable LePine, M Kathleen SENIOR WINDOWS SYSTEMS ADMINISTRATOR Unavailable Unavailable LePine, M Kathleen SENIOR WINDOWS SYSTEMS ADMINISTRATOR Unavailable Unavailable LePine, M Kathleen SENIOR WINDOWS SYSTEMS ADMINISTRATOR Unavailable Unavailable LePine, M Kathleen SENIOR WINDOWS SYSTEMS ADMINISTRATOR Unavailable Unavailable LePine, M Kathleen SENIOR WINDOWS SYSTEMS ADMINISTRATOR Unavailable Unavailable LePine, M Kathleen SENIOR WINDOWS SYSTEMS ADMINISTRATOR Unavailable Unavailable LePine, M Kathleen SENIOR WINDOWS SYSTEMS ADMINISTRATOR Unavailable Unavailable LePine, M Kathleen SENIOR WINDOWS SYSTEMS ADMINISTRATOR Unavailable Unavailable LePine, M Kathleen SENIOR WINDOWS SYSTEMS ADMINISTRATOR Unavailable Unavailable LePine, M Kathleen SENIOR WINDOWS SYSTEMS ADMINISTRATOR Unavailable Unavailable Sasha Mccoy MD Unavailable Unavailable Sasha Mccoy MD Unavailable Unavailable Sasha Mccoy MD Unavailable Unavailable Sasha Mccoy MD Unavailable Unavailable Sasha Mccoy MD Unavailable Unavailable Sasha Mccoy MD Unavailable Unavailable Burgess, Shefali CHEESE PRODUCTION SUPERVISOR Unavailable Unavailable Burgess, Shefali CHEESE PRODUCTION SUPERVISOR Unavailable Unavailable Burgess, Shefali CHEESE PRODUCTION SUPERVISOR Unavailable Unavailable Burgess, Shefali CHEESE PRODUCTION SUPERVISOR Unavailable Unavailable Burgess, Shefali CHEESE PRODUCTION SUPERVISOR Unavailable Unavailable Burgess, Shefali CHEESE PRODUCTION SUPERVISOR Unavailable Unavailable Burgess, Shefali CHEESE PRODUCTION SUPERVISOR Unavailable Unavailable Burgess, Shefali CHEESE PRODUCTION SUPERVISOR Unavailable Unavailable Burgess, Shefali CHEESE PRODUCTION SUPERVISOR Unavailable Unavailable Burgess, Shefali CHEESE PRODUCTION SUPERVISOR Unavailable Unavailable Burgess, Shefali CHEESE PRODUCTION SUPERVISOR Unavailable Unavailable Burgess, Shefali CHEESE PRODUCTION SUPERVISOR Unavailable Unavailable Burgess, Shefali CHEESE PRODUCTION SUPERVISOR Unavailable Unavailable Elma LAINEZ MD Unavailable Unavailable Elma LAINEZ MD Unavailable Unavailable Elma LAINEZ MD Unavailable Unavailable Elma LAINEZ MD Unavailable Unavailable Elma LAINEZ MD Unavailable Unavailable Elma LAINEZ MD Unavailable Unavailable Elma LAINEZ MD Unavailable Unavailable Elma LAINEZ MD Unavailable Unavailable Elma LAINEZ MD Unavailable Unavailable Elma LAINEZ MD Unavailable Unavailable Elma LAINEZ MD Unavailable Unavailable Elma LAINEZ MD Unavailable Unavailable CHANDRALElma Walker MD Unavailable Unavailable CHANDRALAElma MD Unavailable Unavailable CHANDRALA K LOU MASON Unavailable Unavailable CHANDRALA K LOU MASON Unavailable Unavailable CHANDRALA K LOU MD Unavailable Unavailable CHANDRALA K LOU Unavailable Unavailable CHANDRALA K LOU Unavailable Unavailable CHANDRALA K LOU MD Unavailable Unavailable CHANDRALA, K LOU MASON Unavailable Unavailable CHANDRALA K LOU MD Unavailable Unavailable CHANDRALA K LOU MD Unavailable Unavailable CHANDRALA K LOU MD Unavailable Unavailable CHANDRALA, K LOU MD Unavailable Unavailable CHANDRALA, K LOU MD Unavailable Unavailable CHANDRALA, K LOU MD Unavailable Unavailable CHANDRALA, K LOU MD Unavailable Unavailable CHANDRALA, K LOU MD Unavailable Unavailable CHANDRALA, K LOU MD Unavailable Unavailable CHANDRALA, K LOU MD Unavailable Unavailable CHANDRALA, K LOU MD Unavailable Unavailable CHANDRALA K LOU MD Unavailable Unavailable Re-disclosure Warning The records that you are about to access may contain information from federally-assisted alcohol or drug abuse programs. If such information is present, then the following federally mandated warning applies: This information has been disclosed to you from records protected by federal confidentiality rules (42 CFR part 2). The federal rules prohibit you from making any further disclosure of this information unless further disclosure is expressly permitted by the written consent of the person to whom it pertains or as otherwise permitted by 42 CFR part 2. A general authorization for the release of medical or other information is NOT sufficient for this purpose. The Federal rules restrict any use of the information to criminally investigate or prosecute any alcohol or drug abuse patient.The records that you are about to access may contain highly sensitive health information, the redisclosure of which is protected by Article 27-F of the [place] State Public Health law. If you continue you may have access to information: Regarding HIV / AIDS; Provided by facilities licensed or operated by the [facility] Office of Mental Health; or Provided by the [facility] Office for People With Developmental Disabilities. If such information is present, then the following [facility] mandated warning applies: This information has been disclosed to you from confidential records which are protected by state law. State law prohibits you from making any further disclosure of this information without the specific written consent of the person to whom it pertains, or as otherwise permitted by law. Any unauthorized further disclosure in violation of state law may result in a fine or mcfp sentence or both. A general authorization for the release of medical or other information is NOT sufficient authorization for further disc losure. Encounters Encounter Providers Location Date Indications Data Source(s ) Unknown [address] [facility] [address] 09/12/2021 12:00:00 AM EDT eCW1 ([facility]) Unknown [address] [facility] [address] 09/03/2021 12:00:00 AM EDT eCW1 ([facility]) ([id number]) For Template Willard [address] [place] [address] 08/28/2021 12:00:00 AM EDT eCW1 ([facility]) Outpatient Attender: Kathleen Higgins 08/23 02:00:00 PM EDT [facility] ([facility] ) Outpatient Attender: LOU Neves/Jessica/Ang el/Reindl 08/14/2021 11:40:00 AM EDT [facility] ([facility]) Outpatient Attender: Kathleen Higgins 07/05 10:20:00 AM EDT [facility] ([facility] ) Outpatient Attender: LOU Neves/Jessica/Ang el/Reindl 06/14/2021 11:40:00 AM EDT [facility] ([facility]) Outpatient Attender: Sasha Lima DAdmitter: Sasha Mccoy MDReferrer: Sasha Mccoy MD 05/10/2021 12:00:00 AM EDT - 05/10/2021 11:59:00 PM EDT Essential (hemorrhagic) thrombocythemia [facility] Essential (hemorrhagic) thrombocythemia Outpatient Referrer: Sasha Mccoy MD 05/09/2021 08:41:00 AM EDT Essential (hemorrhagic) thrombocythemia [facility] Essential (hemorrhagic) thrombocythemia Outpatient Attender: LOU Neves/Jessica/Ang el/Reindl 04/20/2021 03:20:00 PM EDT [facility] ([facility]) Office Visit Attender: Kathleen Higgins 03/30 09:00:00 AM EDT [facility] ([facility] ) Outpatient Attender: Kathleen Higgins 02/01 01:20:00 PM EST [facility] ([facility] ) Outpatient Attender: LOU Neves/Jessica/Ang el/Reindl 01/26/2021 01:50:00 PM EST [facility] ([facility]) Outpatient Attender: Shefali youngblood 11/23/2020 04:00:00 PM EST [facility] ([facility]) Outpatient Attender: Kathleen Higgins 10/04 09:40:00 AM EST [facility] ([facility] ) Immunizations Vaccine Date Status Description Data Source(s) Influenza, injectable, MDCK, preservative free, mandy valent 08/23/2021 02:28:00 PM EDT completed [facility] ([facility]) COVID-19 VACCINE Moderna 12/28/2020 12:00:00 AM EST completed [facility] Vaccine Series Complete: YESThis Data wa s Submitted to [facility] [employer]. COVID-19 VACCINE Moderna 11/30/2020 12:00:00 AM EST completed [facility] Vaccine Series Complete: NOThis Data was Submitted to [facility] [employer]. Medications Medication Brand Name Start Date Product Form Dose Route Admi nistrative Instructions Pharmacy Instructions Status Indications Reaction Description Data Source(s) Administration Of Flu Vaccine 08/23/2021 12:00:00 AM EDT completed [facility] ([facility]) Medication administered onsite Alprazolam 0.25 MG Oral Tablet Alprazolam 05/15/2021 12:00:00 AM EDT active [facility] ([facility]) Zolpidem tartrate 5 MG Oral Tablet Zolpidem Tartrate 05/03/2021 12:00:00 AM EDT ORAL active [facility] ( [facility]) Prednisone 10 MG Oral Tablet Prednisone 04/20/2021 12:00:00 AM EDT completed [facility] ([facility] ) Estradiol 0.1 MG/ML Vaginal Cream [Estrace] Estrace 05/2021 12:00:00 AM EDT active [facility] ( [facility]) Stelara Stelara 02/12/2021 12:00:00 AM EDT SUBCUTANEOUS completed [facility] ([facility], ) 1 ML ustekinumab 90 MG/ML Prefilled Syringe [Stelara] Stelar a 02/12/2021 12:00:00 AM EDT SUBCUTANEOUS active [facility] ([facility], ) Lutein 20 MG Oral Capsule Lutein 02/01/2021 12:00:00 AM EST ORAL active [facility]) Budesonide 3 MG Delayed Release Oral Capsule Budesonide 01/26/2021 12:00:00 AM EST ORAL completed [facility] ([facility], ) vedolizumab 300 MG Injection [Entyvio] Entyvio 01/26/2021 12:00:00 A M EST completed [facility] ([facility]) Covid-19 vaccine, Unspecified 12/28/2020 12:00:00 AM EST completed [facility] Medication administered onsite Covid-19 vaccine, Unspecified 11/30/2020 12:00:00 AM EST completed [facility] Medication administered onsite NITROFURANTOIN, MACROCRYSTALS 25 MG / Ni trofurantoin, Monohydrate 75 MG Oral Capsule Nitrofurantoin Monohyd Macro 11/23/2020 12:00:00 AM EST ORAL active [facility] ([facility]) Phenazopyridine hydrochloride 200 MG Delayed Release O ral Tablet Phenazopyridine HCL 11/23/2020 12:00:00 AM EST ORAL completed [facility] ([facility]) Lisinopril 2.5 MG Oral Tablet Lisinopril 10/04/2020 12:00:00 AM EST ORAL active [facility] ([facility]) Triamcinolone Acetonide 1 MG/ML Topical Cream Triamcinolone Acetonide 05/31/2020 12:00:00 AM EDT completed [facility] ([facility]) Insurance Providers Payer name Policy type / Coverage type Policy ID Covered constitution party ID Covered constitution party's relationship to willard Policy [place]ard Plan Information [id number] [facility] [employer] [id number] HU2 [id number] [facility] Commercial [id number] Family Dependent [id number] [facility] [id number] HU2 [id number] [facility] [id number] [facility] Commercial [id number] Family Dependent 304/804 [facility] [id number] HU2 [id number] EXCELLUS C [id number] Spouse [id number] MEDICARE A [id number] Self [id number] N27 Medicare Natl Govt Servic Medicare Primary [id number] Self [id number] MEDICARE [id number] SP [id number] [facility] [employer] [id number] HU2 [id number] [facility] [employer] [id number] MEDICARE PART A -O/P [id number] 18 [id number] SELF PAY ONLY [id number] SP [id number] [facility] [id number] P [id number] [facility] [id number] P [id number] Problems, Conditions, and Diagnoses Code Display Name Description Problem Type Effective Dates Data Source(s) D47.3 Essential (hemorrhagic) thrombocythemia Essential (hemorrhagic) thrombocythemia Diagnosis 05/10/2021 03:11:00 PM EDT [facility] Z43.3 [id number] Colostomy care Problem 08/21/2021 12:00:00 A M EDT eCW1 ([facility]) Surgeries/Procedures Procedure Description Date Indications Data Source(s) OFFICE OUTPATIENT VISIT 15 MINUTES 08/23/2021 12:00:00 AM EDT [facility] ([facility]) ECG ROUTINE ECG W/LEAST 12 LDS W/I&R 08/23/2021 12:00: 00 AM EDT [facility] ([facility]) OFFICE OUTPATIENT VISIT 25 MINUTES 08/14/2021 12:00:00 AM EDT [facility] ([facility] ) Chronic Care Management Services Ea Addl 20 Min 2020 12:00:00 AM EDT [facility] ([facility]) Chronic Care MGMT 20 Mins Clinical Staff Time Per Calendar M ont 08/10/2021 12:00:00 AM EDT [facility] ([facility] ) OFFICE OUTPATIENT VISIT 15 MINUTES 07/05/2021 12:00:00 AM EDT [facility] ([facility]) OFFICE OUTPATIENT VISIT 25 MINUTES 06/14/2021 12:00:00 AM EDT [facility] ([facility] ) Chronic Care MGMT 20 Mins Clinical Staff Time Per Calendar M [facility] 06/06/2021 12:00:00 AM EDT [facility] ([facility] ) RESPIRATORY PATHOGEN PANEL <td>RESPIRATORY PATHOGEN PANEL</td><td>Routine</td><td>05/10/2021 10:44 AM EDT</td><td></td><td> </td> 05/10/2021 10:44:00 AM EDT [facility] COVID-19 PCR <td>COVID-19 PCR</td><td>Rou marlene</td><td>05/10/2021 10:44 AM EDT</td><td></td><td> </td> 05/10/2021 10:44:00 AM EDT [facility] Chronic Care Management Services Ea Addl 20 Min 2020 12:00:00 AM EDT [facility] ([facility]) Chronic Care MGMT 20 Mins Clinical Staff Time Per Calendar M [facility] 04/27/2021 12:00:00 AM EDT [facility] ([facility] ) OFFICE OUTPATIENT VISIT 15 MINUTES 04/20/2021 12:00:00 AM EDT [facility] ([facility] ) OFFICE OUTPATIENT VISIT 25 MINUTES 03/30/2021 12:00:00 AM EDT [facility] ([facility]) Chronic Care MGMT 20 Mins Clinical Staff Time Per Calendar M [facility] 03/22/2021 12:00:00 AM EDT [facility] ([facility] ) OFFICE OUTPATIENT VISIT 15 MINUTES 02/01/2021 12:00:00 AM EST [facility] OFFICE OUTPATIENT NEW 45 MINUTES 01/26/2021 12:00:00 A M EST [facility] ([facility] ) Diabetic Retinal Eye Exam 12/13/2020 12:00:00 AM EST [facility] ([facility] Results ID Date Data Source [id number] 09/15/2021 11:55:00 AM EDT [facility] Name Value Range Interpretation Code Description Data Yolanda rce(s) Supporting Document(s) SARS-CoV-2 (COVID-19) RNA [Presence] in Respiratory specimen by PRANAV with probe detection Not Detected [facility] This lab was ordered by [facility] and reported by [employer] ID Date Data Source [id number] 09/15/2021 11:55:00 AM EDT [facility] Name Value Range Interpretation Code Description Data Yolanda rce(s) Supporting Document(s) Coronavirus 2019 Nasopharygeal Laboratory test result [facility] ASSAY INFORMATION: Real Time RT-PCR NOTE: The COVID-19 assay has been cleared by the U.S. Food and Drug Administration under the Emergency Use Authorization (EUA). [employer] are designated as high complexity laboratories by the Clinical Laboratory Improvement Amendments of 1988(CLIA) and are qualified to perform this test. Not Detected ID Date Data Source [id number] 06/28/2021 02:35:00 PM EDT [facility] ([facility]) Name Value Range Interpretation Code Description Data Yolanda rce(s) Supporting Document(s) C reactive protein [Mass/volume] in Serum or Plasma by High sensitivity method 0.64 mg/dL 0.00-0.30 [facility] ([facility] ) ID Date Data Source [id number] 06/28/2021 02:35:00 PM EDT [facility] ([facility]) Name Value Range Interpretation Code Description Data Yolanda rce(s) Supporting Document(s) Vitamin B12 Level 598 pg/mL [facility] ([facility]) VITAMIN B12 NORMAL RANGE NORMAL 247 - 911 PG/ML INDETERMINATE 211 - 246 PG/ML DEFICIENT LESS THAN 211 PG/ML Folate Laboratory test result [facility] ([facility]) FOLATE NORMAL RANGE NORMAL GREATER THAN 5.4 NG/ML INDETERMINATE 3.4-5.4 NG/ML DEFICIENT LESS THAN 3.4 NG/ML ID Date Data Source [id number] 06/28/2021 02:35:00 PM EDT [facility] ([facility]) Name Value Range Interpretation Code Description Data Yolanda rce(s) Supporting Document(s) Iron (Fe) 33 ug/dL 50-170 [facility]) Percent Saturation 7.8 % 13.2-45.0 [facility] ([facility]) Total Iron Binding Capacity 424 ug/dL 250-450 [facility] ([facility]) ID Date Data Source [id number] 06/28/2021 02:35:00 PM EDT [facility] ([facility]) Name Value Range Interpretation Code Description Data Yolanda rce(s) Supporting Document(s) Glucose, Fasting 126 mg/dL 70-100 [facility] ([facility]) Blood Urea Nitrogen 13 mg/dL 7-18 [facility] ([facility]) Glomerular Filtration Rate Laboratory test result [facility] ([facility]) <content>Units are mL/min/1.73 m2</content>
<content></content>
<content>Chronic Kidney Disease Staging per NKF:</content>
<content></content>
<content>Stage I & II GFR >=60 Normal to Mildly Decreased</content>
<content>Stage III GFR 30- 59 Moderately Decreased</content>
<content>Stage IV GFR 15-29 Severely Decreased</content>
<content>Stage V GFR <15 Very Little GFR Left</content>
<content>ESRD GFR <15 on BIOLOGICS SPECIALIST</content>
<content></content> Creatinine For GFR 0.84 mg/dL 0.55-1.30 [facility] ([facility]) Sodium Level 140 meq/L 136-145 [facility] ([facility]) Carbon Dioxide Level 28 meq/L 21-32 [facility] ([facility]) Potassium Serum 4.4 meq/L 3.5-5.1 [facility] ([facility]) Chloride Level 106 meq/L 98-107 [facility] ([facility]) Anion Gap 6 meq/L 8-16 [facility] Calcium Level 9.6 mg/dL 8.8-10.2 [facility] ([facility]) ID Date Data Source [id number] 06/28/2021 02:35:00 PM EDT [facility] ([facility]) Name Value Range Interpretation Code Description Data Yolanda rce(s) Supporting Document(s) Alt/SGPT 30 U/L 12-78 [facility] Ast/Sgot 20 U/L 7-37 [facility] ([facility]) Bilirubin,Total 0.4 mg/dL 0.2-1.0 [facility] ([facility]) Bilirubin,Direct 0.1 mg/dL 0.0-0.2 [facility] ([facility]) Alkaline Phosphatase 95 U/L 45-117 [facility] ([facility]) Albumin 3.3 GM/DL 3.2-5.2 [facility] Total Protein 6.9 GM/DL 6.4-8.2 [facility] ([facility]) Albumin/Globulin Ratio 0.9 1.2-2.2 [facility] ([facility]) ID Date Data Source [id number] 06/28/2021 02:35:00 PM EDT [facility] ([facility]) Name Value Range Interpretation Code Description Data Yolanda rce(s) Supporting Document(s) Erythrocyte sedimentation rate by Westergren method 39 mm/hr 0-30 [facility] ([facility]) ID Date Data Source [id number] 06/28/2021 02:35:00 PM EDT [facility] ([facility]) Name Value Range Interpretation Code Description Data Yolanda rce(s) Supporting Document(s) White Blood Count 10.4 10 4.0-10.0 [facility] ([facility]) Red Blood Count 4.13 10 4.00-5.40 [facility] ([facility]) Mean Corpuscular Volume 89.3 fl 80.0-96.0 [facility] ([facility]) Hematocrit 36.9 % 36.0-47.0 [facility] ([facility]) Hemoglobin 11.9 g/dL 12.0-15.5 [facility] ([facility]) Red Cell Distribution Width 19.7 % 11.5-14.5 [facility] ([facility]) Mean Corpuscular HGB Conc 32.2 g/dL 32.0-36.5 [facility] ([facility]) Mean Corpuscular Hemoglobin 28.8 pg 27.0-33.0 [facility] ([facility]) Platelet Count, Automated 454 10 150-450 [facility] ([facility]) Lymph % 21.9 % 24.0-44.0 [facility]) Neutrophils % 68.2 % 36.0-66.0 [facility] ([facility]) [place] % 8.1 % 2.0-8.0 [facility]) Baso % 0.6 % 0.0-1.0 [facility]) Eos % 0.7 % 0.0-3.0 [facility]) Nucleated Red Blood Cell % 0.0 % 0-0 [facility] ([facility]) Immature Granulocyte % 0.5 % 0-3.0 [facility] ([facility]) Lymph # 2.3 10 1.5-5.0 [facility]) [place] # 0.9 10 0.0-0.8 [facility] [facility] Neutrophils # 7.1 10 1.5-8.5 [facility] ([facility]) Baso # 0.1 10 0.0-0.2 [facility] [facility] Eos # 0.1 10 0.0-0.5 [facility] ([place] [facility]) ID Date Data Source [id number] 06/28/2021 02:35:00 PM EDT [facility]) Name Value Range Interpretation Code Description Data Yolanda rce(s) Supporting Document(s) Percent Saturation 7.8 % 13.2-45.0 Below low normal [facility] (Health system) Iron (Fe) 33 ug/dL 50-170 Below low normal [facility] ( Health system) Total Iron Binding Capacity 424 ug/dL 250-450 Norm al (applies to non-numeric results) [facility]) ID Date Data Source [id number] 06/28/2021 02:35:00 PM EDT [facility] ([facility]) Name Value Range Interpretation Code Description Data Yolanda rce(s) Supporting Document(s) Vitamin B12 Level 598 pg/mL Normal (applies to non-numeri c results) [facility] (Health system) VITAMIN B12 NORMAL RANGE NORMAL 247 - 911 PG/ML INDETERMINATE 211 - 246 PG/ML DEFICIENT LESS THAN 211 PG/ML Folate Laboratory test result Normal (applies to non-n umeric results) [facility]) FOLATE NORMAL RANGE NORMAL GREATER THAN 5.4 NG/ML INDETERMINATE 3.4-5.4 NG/ML DEFICIENT LESS THAN 3.4 NG/ML ID Date Data Source [id number] 06/28/2021 02:35:00 PM EDT [facility]) Name Value Range Interpretation Code Description Data Yolanda rce(s) Supporting Document(s) Alkaline Phosphatase 95 U/L 45-117 Normal (applies to non-num aranza results) [facility] ([facility], ) Ast/Sgot 20 U/L 7-37 Normal (applies to non-numeric resul ts) [facility] (Health system) Alt/SGPT 30 U/L 12-78 Normal (applies to non-numeric resul ts) [facility]) Bilirubin,Total 0.4 mg/dL 0.2-1.0 Normal (applies to non-numeric results) [facility] (Health system) Bilirubin,Direct 0.1 mg/dL 0.0-0.2 Normal (applies to non-numeric results) [facility]) Total Protein 6.9 GM/DL 6.4-8.2 Normal (applies to non-numeric re sults) [facility]) Albumin/Globulin Ratio 0.9 1.2-2.2 Below low normal [facility] (Health system) Albumin 3.3 GM/DL 3.2-5.2 Normal (applies to non-numeric resul ts) [facility]) ID Date Data Source [id number] 06/28/2021 02:35:00 PM EDT [facility] ([facility]) Name Value Range Interpretation Code Description Data Yolanda rce(s) Supporting Document(s) Glucose, Fasting 126 mg/dL 70-100 Above high normal [facility] (Health system) Blood Urea Nitrogen 13 mg/dL 7-18 Normal (applies to non-nume dary results) [facility] (Health system) Creatinine For GFR 0.84 mg/dL 0.55-1.30 Normal (applies to non -numeric results) [facility] (Health system) Glomerular Filtration Rate Laboratory test result Normal (applies to non- numeric results) [facility]) <content>Units are mL/min/1.73 m2</content>
<content></content>
<content>Chronic Kidney Disease Staging per NKF:</content>
<content></content>
<content>Stage I & II GFR >=60 Normal to Mildly Decreased</content>
<content>Stage III GFR 30- 59 Moderately Decreased</content>
<content>Stage IV GFR 15-29 Severely Decreased</content>
<content>Stage V GFR <15 Very Little GFR Left</content>
<content>ESRD GFR <15 on BIOLOGICS SPECIALIST</content>
<content></content> Sodium Level 140 meq/L 136-145 Normal (applies to non-numeric res ults) [facility] (Health system) Potassium Serum 4.4 meq/L 3.5-5.1 Normal (applies to non-numeric results) [facility] (Health system) Carbon Dioxide Level 28 meq/L 21-32 Normal (applies to non-num aranza results) [facility] (Health system) Chloride Level 106 meq/L 98-107 Normal (applies to non-numeric r esults) [facility] (Health system) Calcium Level 9.6 mg/dL 8.8-10.2 Normal (applies to non-numeric re sults) [facility] (Health system) Anion Gap 6 meq/L 8-16 Below low normal [facility] ( Health system) ID Date Data Source [id number] 06/28/2021 02:35:00 PM EDT [facility] ([facility]) Name Value Range Interpretation Code Description Data Yolanda rce(s) Supporting Document(s) C reactive protein [Mass/volume] in Serum or Plasma by High sensitivity method 0.64 mg/dL 0.00-0.30 Above high normal [facility] ([facility]) Erythrocyte sedimentation rate by Westergren method 39 mm/hr 0-30 Above high normal [facility] (Health system) ID Date Data Source [id number] 06/28/2021 02:35:00 PM EDT [facility] ([facility]) Name Value Range Interpretation Code Description Data Yolanda rce(s) Supporting Document(s) White Blood Count 10.4 10 4.0-10.0 Above high normal [facility] (Health system) Hemoglobin 11.9 g/dL 12.0-15.5 Below low normal [facility] ( Health system) Red Blood Count 4.13 10 4.00-5.40 Normal (applies to non-numeric results) [facility] (Health system) Hematocrit 36.9 % 36.0-47.0 Normal (applies to non-numeric resul ts) [facility] (Health system) Mean Corpuscular Hemoglobin 28.8 pg 27.0-33.0 Norm al (applies to non-numeric results) [facility] (Health system) Mean Corpuscular Volume 89.3 fl 80.0-96.0 Normal ( applies to non-numeric results) [facility] (Health system) Mean Corpuscular HGB Conc 32.2 g/dL 32.0-36.5 Normal (applies to non-numeric results) [facility] (Health system) Platelet Count, Automated 454 10 150-450 Above high normal [facility] (Health system) Red Cell Distribution Width 19.7 % 11.5-14.5 Above high normal [facility] (Health system) Neutrophils % 68.2 % 36.0-66.0 Above high normal [facility] (Health system) Eos % 0.7 % 0.0-3.0 Normal (applies to non-numeric resul ts) [facility] (Health system) [place] % 8.1 % 2.0-8.0 Above high normal [facility] (Health system) Lymph % 21.9 % 24.0-44.0 Below low normal [facility] ( Health system) Baso % 0.6 % 0.0-1.0 Normal (applies to non-numeric resul ts) [facility] (Health system) Nucleated Red Blood Cell % 0.0 % 0-0 Normal (applies to n on-numeric results) [facility] (Health system) Immature Granulocyte % 0.5 % 0-3.0 Normal (applies to non-n umeric results) [facility] (Health system) Neutrophils # 7.1 10 1.5-8.5 Normal (applies to non-numeric re sults) [facility] ([facility], ) Lymph # 2.3 10 1.5-5.0 Normal (applies to non-numeric resul ts) [facility] (Health system) [place] # 0.9 10 0.0-0.8 Above high normal [facility] (Health system) Baso # 0.1 10 0.0-0.2 Normal (applies to non-numeric resul ts) [facility] (Health system) Eos # 0.1 10 0.0-0.5 Normal (applies to non-numeric resul ts) [facility] (Health system) ID Date Data Source [id number] 06/28/2021 02:10:00 PM EDT [facility] ([facility]) Name Value Range Interpretation Code Description Data Yolanda rce(s) Supporting Document(s) Elastase.pancreatic [Mass/mass] in Stool Laboratory test result [facility] ([facility]) Test not performed. Consistency of stool specimen too watery for analysis. TEST: [id number] Pancreatic Elastase, Fecal Testing performed at reference lab . Report copy to follow on a separate form. 07/10/21 REF LAB#:[id number] Calprotectin [Mass/mass] in Stool 40 ug/g 0-120 [facility] ([facility]) <content>Concentration Interpretatio n Follow-Up</content>
<content><16 - 50 ug/g Normal None</content>
<content>>50 -120 ug/g Borderline Re-evaluate in 4-6 weeks</content>
<content>>120 ug/g Abnormal Repeat as clinically</content>
<content>indicated</content>
<content></content> ID Date Data Source [id number] 06/28/2021 02:10:00 PM EDT [facility] ([facility]) Name Value Range Interpretation Code Description Data Yolanda rce(s) Supporting Document(s) Fats Neutral Laboratory test result [facility] ([facility]) <content>Normal (<60 Droplets/HPF)</cont ent>
<content></content> Fats Total Laboratory test result [facility] ([facility]) <content>Normal (<100 Droplets/HPF)</con tent>
<content></content> ID Date Data Source [id number] 06/28/2021 02:10:00 PM EDT [facility] ([facility]) Name Value Range Interpretation Code Description Data Yolanda rce(s) Supporting Document(s) Elastase.pancreatic [Mass/mass] in Stool Laboratory test result Normal (applies to non-numeric results) [facility] ([facility]) Test not performed. Consistency of stool specimen too watery for analysis. TEST: [id number] Pancreatic Elastase, Fecal Testing performed at reference lab . Report copy to follow on a separate form. 07/10/21 REF LAB#:[id number] ID Date Data Source [id number] 06/28/2021 02:10:00 PM EDT [facility] ([facility]) Name Value Range Interpretation Code Description Data Yolanda rce(s) Supporting Document(s) Fats Total Laboratory test result Normal (applies to non-n umeric results) [facility] (Health system) <content>Normal (<100 Droplets/HPF)</con tent>
<content></content> Fats Neutral Laboratory test result Normal (applies to non -numeric results) [facility] (Health system) <content>Normal (<60 Droplets/HPF)</cont ent>
<content></content> ID Date Data Source [id number] 06/28/2021 02:10:00 PM EDT [facility] ([facility]) Name Value Range Interpretation Code Description Data Yolanda rce(s) Supporting Document(s) Calprotectin [Mass/mass] in Stool 40 ug/g 0-120 Normal (applies to non-numeric results) [facility] (Health system) <content>Concentration Interpretatio n Follow-Up</content>
<content><16 - 50 ug/g Normal None</content>
<content>>50 -120 ug/g Borderline Re-evaluate in 4-6 weeks</content>
<content>>120 ug/g Abnormal Repeat as clinically</content>
<content>indicated</content>
<content></content> ID Date Data Source [id number] 05/11/2021 07:06:47 AM EDT [facility] Service Cmnt XXX-Imp : NoneRespiratory P CR Panel : PCR ResultsMicroorganism XXX Cult : Entry ErrorHAdV DNA QI PRANAV+non-probe : Entry ErrorHCoV [id number] Nph QI PRANAV+non-probe : Entry ErrorHCoV [id number] Nph QI PRANAV+non-probe : Entry EyzzmIMgHUF43 RNA Nph QI PRANAV+non-probe : Entry RqnotHPfRTS71 RNA Upper resp QI PRANAV+probe : Entry ErrorhMPV RNA Nph QINAA+non-probe : Entry ErrorRV+EV RNA Nph QI PRANAV+non-probe : Entry ErrorFLUAV RNA Nph QI PRANAV+ non-probe : Entry ErrorFLUBV RNA Nph QI PRANAV+non-probe : Entry ErrorHPIV1 RNA NphQINAA+non-probe : Entry ErrorHPIV2 RNA Nph QINAA+non-probe : Entry ErrorHPVI3 RNA Nph PRANAV+non-probe : Entry ErrorHPIV4 RNA Nph Q PRANAV+non-probe : Entry ErrorRSV RNA Nph Q PRANAV+non- probe : Entry ErrorB pert.PT PrmtNph Q PRANAV+non-probe : Entry ErrorC pneum DNA Nph Q PRANAV+non-probe : Entry ErrorM pneum DNA Nph Q PRANAV+non-probe : Entry ErrorB [id number] DNA Nph PRANAV+non-probe : Entry ErrorPlease note : Test Not Performed. Name Value Range Interpretation Code Description Data [facility] rce(s) Supporting Document(s) ID Date Data Source [id number] 05/10/2021 04:20:22 PM EDT [facility] Name Value Range Interpretation Code Description Data [facility] rce(s) Supporting Document(s) Specimen source [Identifier] of Unspecified specimen [facility] SARS-CoV-2 RNA 2019 nCoV Real-Time RT-PCR: NOT DETECTED [facility] Assay Performed [facility] Influenza virus A RNA [Presence] in Naso pharynx by Target amplification with non-probe based detection Not Detected A [facility] Influenza virus B RNA [Presence] in Naso pharynx by Target amplification with non-probe based detection Not Detected A [facility] Respiratory syncytial virus RNA [Presenc e] in Nasopharynx by Target amplification with non-probe based detection Not Detected A [facility] Patients first test for [facility] Patient employed in healthcare setting [facility] Patient has symptoms related to condition [facility] When did you start to experience these symptoms [Date and time] [Phen X] [facility] Patient was hospitalized because of this condition [facility] patient was admitted to ICU for condition [facility] Patient resides in a congregate care setting [facility] status [facility] ID Date Data Source [id number] 05/09/2021 03:22:00 PM EDT [facility] ([facility]) Name Value Range Interpretation Code Description Data Yolanda rce(s) Supporting Document(s) Glucose, Fasting 121 mg/dL 70-100 [facility] ([facility]) Blood Urea Nitrogen 27 mg/dL 7-18 [facility] ([facility]) Creatinine For GFR 1.00 mg/dL 0.55-1.30 [facility] ([facility]) Glomerular Filtration Rate 58.9 [facility] ([facility]) <content>Units are mL/min/1.73 m2</content>
<content></content>
<content>Chronic Kidney Disease Staging per NKF:</content>
<content></content>
<content>Stage I & II GFR >=60 Normal to Mildly Decreased</content>
<content>Stage III GFR 30- 59 Moderately Decreased</content>
<content>Stage IV GFR 15-29 Severely Decreased</content>
<content>Stage V GFR <15 Very Little GFR Left</content>
<content>ESRD GFR <15 on BIOLOGICS SPECIALIST</content>
<content></content> Sodium Level 137 meq/L 136-145 [facility] ([facility]) Potassium Serum 4.2 meq/L 3.5-5.1 [facility] ([facility]) Chloride Level 106 meq/L 98-107 [facility] ([facility]) Anion Gap 6 meq/L 8-16 [facility] ([facility]) Carbon Dioxide Level 25 meq/L 21-32 [facility] ([facility]) Calcium Level 8.9 mg/dL 8.8-10.2 [facility] ([facility]) Ast/Sgot 26 U/L 7-37 [facility] ([facility]) Alt/SGPT 40 U/L 12-78 [facility] ([facility]) Alkaline Phosphatase 79 U/L 45-117 [facility] ([facility]) Bilirubin,Total 0.5 mg/dL 0.2-1.0 [facility] ([facility]) Total Protein 7.5 GM/DL 6.4-8.2 [facility] ([facility]) Albumin 3.4 GM/DL 3.2-5.2 [facility] ([facility]) Albumin/Globulin Ratio 0.8 1.2-2.2 [facility] ([facility]) ID Date Data Source [id number] 05/09/2021 03:22:00 PM EDT [facility] ([facility]) Name Value Range Interpretation Code Description Data Yolanda rce(s) Supporting Document(s) Iron (Fe) 139 ug/dL 50-170 [facility] ([facility]) Percent Saturation 28.1 % 13.2-45.0 [facility] Total Iron Binding Capacity 494 ug/dL 250-450 [facility] ([facility]) ID Date Data Source [id number] 05/09/2021 03:22:00 PM EDT [facility] ([facility]) Name Value Range Interpretation Code Description Data Yolanda rce(s) Supporting Document(s) Ferritin [Mass/volume] in Serum or Plasma 19 ng/mL 8-252 [facility] ([facility]) Cobalamin (Vitamin B12) [Mass/volume] in Serum or Plasma 580 pg/mL 2 47-911 [facility] ([facility]) VITAMIN B12 NORMAL RANGE NORMAL 247 - 911 PG/ML INDETERMINATE 211 - 246 PG/ML DEFICIENT LESS THAN 211 PG/ML ID Date Data Source [id number] 05/09/2021 03:22:00 PM EDT [facility] ([facility]) Name Value Range Interpretation Code Description Data Yolanda rce(s) Supporting Document(s) BCR/Abl Screen For CML Path So Laboratory test result [facility] ([facility]) See Pathology Report Specimen Collection for Pathology Reference Lab Testing. Refer to [facility] Pathology Report for Results:[id number] ID Date Data Source [id number] 05/09/2021 03:22:00 PM EDT [facility] ([facility]) Name Value Range Interpretation Code Description Data Yolanda rce(s) Supporting Document(s) JAK2 gene.p.Avx630Tmj mutant/Normal in B lood or Tissue by Molecular genetics method Laboratory test result [facility] See Pathology Report Specimen Collection for Pathology Reference Lab Testing. Refer to [facility] Pathology Report for Results: [id number] ID Date Data Source [id number] 05/09/2021 03:22:00 PM EDT [facility] Name Value Range Interpretation Code Description Data Yolanda rce(s) Supporting Document(s) White Blood Count 15.0 10 4.0-10.0 [facility] ([facility]) Red Blood Count 4.63 10 4.00-5.40 [facility] ([facility]) Hemoglobin 12.9 g/dL 12.0-15.5 [facility] ([facility]) Hematocrit 39.2 % 36.0-47.0 [facility] ([facility]) Mean Corpuscular Volume 84.7 fl 80.0-96.0 [facility] ([facility]) Mean Corpuscular HGB Conc 32.9 g/dL 32.0-36.5 [facility] ([facility]) Mean Corpuscular Hemoglobin 27.9 pg 27.0-33.0 [facility] ([facility]) Red Cell Distribution Width 19.1 % 11.5-14.5 [facility] ([facility]) Platelet Count, Automated 319 10 150-450 [facility] ([facility]) Neutrophils % 92.5 % 36.0-66.0 [facility] ([facility]) [place] % 0.7 % 2.0-8.0 [facility]) Lymph % 5.4 % 24.0-44.0 [facility]) Eos % 0.0 % 0.0-3.0 [facility]) Immature Granulocyte % 1.3 % 0-3.0 [facility] ([facility]) Baso % 0.1 % 0.0-1.0 [facility] [facility]) Neutrophils # 13.9 10 1.5-8.5 [facility]) Nucleated Red Blood Cell % 0.0 % 0-0 [facility] ([facility]) [place] # 0.1 10 0.0-0.8 [facility]) Eos # 0.0 10 0.0-0.5 [facility]) Lymph # 0.8 10 1.5-5.0 [facility]) Baso # 0.0 10 0.0-0.2 [facility]) ID Date Data Source [id number] 05/18/2021 04:08:00 PM [facility] Molecular Diagnostics ReportName: SUN JIMENEZMRN: [id number] Number: [id number] Date: 05/09/2021 00:00Received Date: 05/11/2021 14:47Physician(s): SASHA MCCOY MD HAGHIR, SHAHANDEH F,[facility] ReceivedA: Peripheral Blood-[facility] for CALR/MPLTYPE OF STUDY: CALR/MPL Mutation AnalysisCOMMENTS: A peripheral blood sample for this patient was sent to [facility] [place], [address] [address] [facility], [place], [place] [address]fxm analysis. Please see order in EPIC under Labs tab for scanned externalreport.The report states in part:CALR: "No mutation is detected in exon 9 of CALR. Insertions up to 30bpand deletions up to 52bp have been successfully detected by the assay."MPL: "No mutation is detected in exon 10 of MPL, encompassing codons 505and 515." See report for final results and interpretation. sr/js Electronically Signed By Yemi Alcaraz M.D. Attending Pathologist 05/18/2021 16:08:07 Name Value Range Interpretation Code Description Data [facility] Supporting Document(s) ID Date Data Source [id number] 05/16/2021 07:29:00 PM EDT [facility] FASTING: UNKNOWNReceived: 05/12/2021 at 03:19:00 AMD: [employer] [facility], [address], [place], [place], , Miguel Rasheed M.D.,PhDsee noteD47.3Peripheral BloodNot given Received: 05/12/2021 at 03:19:00 AMD : [employer] [facility], [address] , [place], [place], , Miguel Rasheed M.D.,PhDsee noteD47.3Peripheral BloodNot given Name Value Range Interpretation Code Description Data [facility] Supporting Document(s) CALR gene exon 9 mutations found [Identi fier] in Blood or Tissue by Molecular genetics method Nominal Not Detected [facility] DNRDNRDNRDNRDNRDNRDNRsee noteNo mutation is detected in exon 9 of CALR. Insertions up to 30bp anddeletions up to 52bp have been successfully detected by the assay.The test results were reviewed by: Winnie Starkey MD, FCAP, Orthodontic Lab Technician, Molecular OncologySEE BELOWThis PCR-based advanced sequencing assay interrogatesDNA from leukocytes for the presence of mutations inexon 9 of calreticulin (CALR). The sensitivity ofmutation detection is approximately 5% but may varydepending on the particular mutation type. Insertionsup to 30bp and deletions up to 52bp have beensuccessfully detected by the assay. Alterations outsideof the tested areas of this gene will not be detected.Synonymous or known non-synonymous polymorphic changes(SNPs) are not reported. Frameshift mutations in thisregion of CALR are associated with myeloproliferativeneoplasms (MPNs), particularly essentialthrombocythemia (ET) and primary myelofibrosis (PMF).Results of this assay should be correlated withmorphology and other labora tory testing for finaldiagnosis and classification. If this test is negativeadditional testing that may be useful for workup ofMPNs, depending on presenting hematologic features,includes BCR-ABL1 rearrangement (test code 90120 [id number]) or mutational analysis of JAK2 V617F(polycythemia vera (PV)/ET/PMF, 37822), JAK2 exon 12(PV, 50290), MPL (ET/PMF, 94554) or CSF3R (chronicneutrophilic leukemia, 01158). Residual material fromthis sample may be used except for BCR-ABL1 testing;call lab to add.DNA was aligned to GRCh37(hg19) for analysis andtranscript ID [id number] was used as reference forSANDIPR se craig.For additional information, please refer tohttp://education.makeena/faq/UDL866(This link is being provided forinformational/educational purposes only.)This test was developed and its a nalyticalperformance characteristics have been determinedby [facility], [place], [place].It has not been cleared or approved by the FDA. Thisassay has been validated pursuant to the CLIAregulations and is used for clinical purposes. ID Date Data Source [id number] 05/16/2021 07:29:00 PM EDT [facility] FASTING: UNKNOWNReceived: 05/12/2021 at 03:19:00 AMD: [employer] [facility], [address], [place], [place], , Miguel Rasheed M.D.,PhDsee noteD47.3Peripheral BloodNot given Received: 05/12/2021 at 03:19:00 AMD : [employer] [facility], [address] [address], [place], [place], , Miguel Rasheed M.D.,PhDsee noteD47.3Peripheral BloodNot given Name Value Range Interpretation Code Description Data Yolanda rce(s) Supporting Document(s) MPL gene p.[id number] [Presence] in Blood or Tissue by Molecular genetics method Not Detected [employer] [facility] DNRDNRDNRDNRDNRDNRDNRsee noteNo mutation is detected in exon 10 of MPL, encompassing codons 505 flv781.The test results were reviewed by: Winnie Starkey MD, FCAP, Orthodontic Lab Technician, Molecular OncologySEE BELOWThis PCR-based advanced sequencing assay interrogatesDNA from leukocytes for the presence of mutations inexon 10 of the thrombopoietin receptor (MPL), includingcodons 505 and 515. The sensitivity of mutationdetection is 5% but may vary depending on theparticular mutation type. Insertions up to 30bp anddeletions up to 52bp have been successfully detectedby the assay. Alterations outside of the testedareas of this gene will not be detected. Synonymous orknown non-synonymous polymorphic changes (SNPs) are notreported. Mutations at these sites in MPL areassociated with myeloproliferative neoplasms (MPNs),particularly essential thrombocythemia (ET) and primarymyelofibrosis (PMF). Results of this assay should becorrelated with morphology and other laboratory testingfor final diagnosis and classif ication. If this test isnegative, additional testing that may be useful forworkup of MPNs, depending on presenting hematologicfeatures, includes BCR- ABL1 rearrangement (test [id number] or [id number]) or mutational analysis of JAK2 V617F(polycythemia vera (PV)/ET/PMF, 81320), CALR (ET/PMF,96353), JAK2 exon 12 (PV, 52209) or CSF3R (chronicneutrophilic leukemia, 68076). Residual material fromthis sample may be used except for BCR-ABL1 testing;call lab to add.DNA was aligned to GRCh37(hg19) for analysis andand transcript ID [id number] was used forreference for MPL sequence.For additional information, please refer tohttp://education.[employer]/faq/ZLT312(This link is being provided forinformational/educational purposes only.)This test was developed and its analyticalperformance characteristics have been determinedby [facility], [place], [place].It has not been cleared or approved by the FDA. Thisassay has been validated pursuant to the CLIAregulations and is used for clinical purposes. ID Date Data Source [id number] 05/16/2021 04:42:00 PM [facility] Cytogenetics ReportName: SUN JIMENEZ Germán RN: [id number] Number: [id number] Date: 05/09/2021 00:00Received Date: 05/10/2021 15:17Physician(s): SASHA MCCOY,SASHA NAILS,MDSpecimen(s) ReceivedA: Peripheral Blood (U-IF)Clinical HistoryPatient with chronic thrombocytosis since 1998 being evaluated for theBCR-ABL1 rearrangement.TEST REQUESTED/PERFORMED: Fluorescence in situ hybridization (FISH) DiagnosisThe FISH study was negative for the BCR/ABL1 [t(9;22)] rearrangement. Electronically Signed By Rosemary Oropeza, Ph.D., [facility] 05/16/2021 16:42:48Gross DescriptionFluorescence in situ Hybridization (FISH)nuc danitza (ABL1,BCR)x2[194/200]DescriptionThe fluorescence in situ hybridization (FISH) analysis showed a normalsignal pattern for BCR and ABL1, providing no evidence of a t(9;22). Test DataSpecimen Processed: Peripheral BloodFluorescence in situ Hybridization (FISH): 24 HR Unstimulated Probe Normal Cut-off Nuclei Analyzed FISH SIGNAL PATTERNS Normal Abnormal NKCS *LSI ABL1(9q34.1) SO LSI BCR(22q11.2) SG ES 3% 200 2O2% 0% 3% Vendor: *[employer] Probes: LSI: Locus Specific Probe; ES: Extra Signal; DCDF: Dual ColorDual Fusion Fluorochromes/ Signals: SG: Spectrum Green; SO: Spectrum Lamont; Y:Yellow (Fusion) NKCS: Signals with No Known Clinical SignificanceDisclaimer: Conventional chromosome analysis may not detect submicroscopicstructural chromosome abnormalities as well as aberrations present at lowpercentages. The FISH test was developed and its performance was validatedby the Cytogenetics section of the Department of Clinical Pathology. Thistest has not been cleared or approved by the U. S. Food and DrugAdministration (FDA). The FDA has determined that such approval is notnecessary. However, the procedure is considered investigational, andshould not be used as the sole criteria for diagnosis. Name Value Range Interpretation Code Description Data Yolanda rce(s) Supporting Document(s) ID Date Data Source [id number] 05/11/2021 04:32:00 PM [facility] Molecular Diagnostics ReportName: SUN JIMENEZMRN: [id number] Number: [id number] Date: 05/09/2021 00:00Received Date: 05/11/2021 08:18Physician(s): SASHA MCCOY MD Haghir, Shahandeh MDSpecimen(s) ReceivedA: Peripheral Blood - UBD1QNNO OF STUDY: JAK2 V617F Direct Mutation AnalysisSPECIMEN TYPE: Peripheral BloodRESULTS: NegativeINTERPRETATION: A negative result does not entirely rule out thepossibility of myeloproliferative neoplasm, as 5% of polycythemia verapatients and 40-50% of primary myelofibrosis and essential thrombocythemiapatients do not harbor a JAK2 mutation. Clinical correlation isrecommended. Testing for JAK2 exon 12, MPL, and/or CALR mutations may alsobe helpful if clinically indicated.COMMENTS: Extracted DNA was amplified with primers specific for detectingthe JAK2 V617F (c.1849 G>T) in exon 14 mutation. The sensitivity limit ofthe analysis is approximately 1% mutation positive cells. This result doesnot rule out presence of a chronic myeloproliferative neoplasm. If adiagnosis of essential thrombocythemia (ET) or primary myelofibrosis (PMF)is clinically indicated, testing for mutations in exon 9 of theCalreticulin (CALR) gene and exon 10 of the MPL gene should be considered.In the JAK2 (V617F) negative population, CALR exon 9 mutations are presentin 67% of ET and 88% of PMF patients (Lilly Walker et al. The New EnglandJournal of Medicine. 2013; 369: 25: 4929-6820). MPL exon 10 mutations arepresent in ~3-5% of ET and PMF patients (Ceasar RAE et al. J Mol Diag.2013;15:733-743). If a diagnosis of polycythemia vera (PV) is clinicallyindicated, testing for JAK2 exon 12 mutations should be considered.Approximately 3% of PV cases carry a JAK2 exon 12 mutation (Jeremy Walker etal. [facility] Clin. Proc. 2005;80:947-958; Singh MCCORMACK et al. Am. J. ofHematology 2011; 86(4) 737-671). This test was developed and its performance determined by the Departmentof Pathology. Although it has not been cleared or approved by the U.S.Food and Drug Administration (FDA), the FDA has determined that suchapproval is not necessary. The test has been validated and authorized forclinical use by the [facility] Dept. of Health ([facility]).rw/jsElectronically Signed By Yemi Alcaraz M.D. Attending Pathologist 05/11 16:32:20 Name Value Range Interpretation Code Description Data Yoladna rce(s) Supporting Document(s) ID Date Data Source [id number] 03/30/2021 08:33:00 AM EDT [facility] ([facility]) Name Value Range Interpretation Code Description Data Yolanda rce(s) Supporting Document(s) Magnesium 1.9 mg/dL 1.8-2.4 [facility] ([facility]) ID Date Data Source [id number] 03/30/2021 08:33:00 AM EDT [facility] ([facility]) Name Value Range Interpretation Code Description Data Yolanda rce(s) Supporting Document(s) Cholesterol [Mass/volume] in Serum or Plasma 143 mg/dL 131-200 [facility] ([facility]) Triglyceride [Mass/volume] in Serum or Plasma 105 mg/dL 30-150 [facility] ([facility]) Cholesterol in HDL [Mass/volume] in Serum or Plasma 89 mg/dL 35-60 [facility] ([facility]) Cholesterol in LDL [Mass/volume] in Serum or Plasma by calcu lation 33 CALC 50-159 [facility] ([facility]) ID Date Data Source [id number] 03/30/2021 08:33:00 AM EDT [facility] ([facility]) Name Value Range Interpretation Code Description Data Yolanda rce(s) Supporting Document(s) Urea nitrogen [Mass/volume] in Serum or Plasma 19 mg/dL 7-18 [facility] ([facility]) Creatinine 1.0 mg/dL 0.6-1.3 [facility] ([facility]) Glucose [Mass/volume] in Serum or Plasma 94 mg/dL 74-99 [facility] ([facility]) 100-125 mg/dL PRE-DIABETES/FASTING >126 mg/dL DIABETES/FASTING Sodium [Moles/volume] in Serum or Plasma 142 meq/L 136-145 [facility] ([facility]) Potassium [Moles/volume] in Serum or Plasma 4.1 meq/L 3.5-5.1 [facility] ([facility]) Chloride [Moles/volume] in Serum or Plasma 104 meq/L 98-107 [facility] ([facility]) Calcium [Mass/volume] in Serum or Plasma 9.0 mg/dL 8.5-10.1 [facility] ([facility]) Carbon dioxide, total [Moles/volume] in Serum or Plasma 30 meq/L 21 -32 [facility] ([facility]) Alkaline phosphatase isoenzyme [Units/volume] in Serum or Pl asma 112 mg/dL 46-116 [facility] ([facility]) Aspartate aminotransferase [Enzymatic activity/volume] in Serum or Plasma 17 U/L 15-37 [facility] ([facility] ) Total Bilirubin 0.3 mg/dL 0.2-1.0 [facility] ([facility]) Alanine aminotransferase [Enzymatic activity/volume] in Seru m or Plasma 23 U/L 12-78 [facility] ([facility]) Albumin [Mass/volume] in Serum or Plasma 3.0 g/dL 3.4-5.0 [facility] ([facility]) A/G Ratio 0.68 CALC 1.00-1.90 [facility] ([facility]) Proteinase 3 Ab [Units/volume] in Serum 7.4 g/dL 6.4-8.2 [facility] ([facility]) Glomerular filtration rate/1.73 sq M pre dicted among non-blacks [Volume Rate/Area] in Serum or Plasma by Creatinine-based formula (MDRD) 55 mL/min [facility] ([facility]) Glomerular filtration rate/1.73 sq M pre dicted among blacks [Volume Rate/Area] in Serum or Plasma by Creatinine-based formula (MDRD) Laboratory test result [facility] ([facility]) <content>CHRONIC KIDNEY DISEASE STAGING PER NKF</content>
<content></content>
<content>STAGE I & II GFR >= 60 NORMAL TO MILDLY DECREASED</content>
<content>STAGE III GFR 30-59 MODERATELY DECREASED</content>
<content>STAGE IV GFR 15-29 SEVERELY DECREASED</content>
<content>STAGE V GFR <15 VERY LITTLE GFR LEFT</content>
<content>ESRD GFR <15 ON BIOLOGICS SPECIALIST</content>
<content></content> ID Date Data Source [id number] 03/30/2021 08:33:00 AM EDT [facility]) Name Value Range Interpretation Code Description Data Yolanda rce(s) Supporting Document(s) Hemoglobin A1c/Hemoglobin.total in Blood 6.0 % [facility] ([facility]) Lab Result Notes: Pre-Diabetes 5.7 - 6.4 % Diabetes = or > 6.5% Glucose mean value [Mass/volume] in Blood Estimated fr om glycated hemoglobin 125 mg/dL 60-110 [facility] ([facility] ) ID Date Data Source [id number] 03/30/2021 08:33:00 AM EDT [facility]) Name Value Range Interpretation Code Description Data Yolanda rce(s) Supporting Document(s) Leukocytes [#/volume] in Blood by Automated count 9.2 x10*3/UL 4.1-10 .9 [facility] ([facility]) NOTE: CBC VERIFIED Erythrocytes [#/volume] in Blood by Automated count 4.37 x10*6/UL 4.2 0-6.30 [facility] ([facility]) Hemoglobin [Mass/volume] in Blood 12.3 g/dL 12.0-18.0 [facility] ([facility]) MCH 28.2 pg 26.0-32.0 [facility] ([facility]) Hematocrit [Volume Fraction] of Blood by Automated count 36.6 % 3 7.0-51.0 [facility] MCV 83.6 fL 80.0-97.0 [facility] ([facility]) Platelets [#/volume] in Blood by Automated count 506 x10*3/UL 140-440 [facility] MCHC 33.7 g/dL 31.0-38.0 [facility] ([facility]) Erythrocyte distribution width [Ratio] by Automated count 15.5 % 11.6-13.7 [facility] Mid % 5.4 % 1.7-9.3 [facility] ([facility]) Lymph % 19.4 % 10.0-58.5 [facility] ([facility]) MPV 7.1 FL 7.8-11.0 [facility] ([facility]) Mid # 0.6 x10*3/UL 0.1-0.6 [facility] ([facility]) Lymph # 1.7 x10*3/UL 0.6-4.1 [facility] ([facility]) Neut % 75.2 % 37.0-92.0 [facility] ([facility]) Neut # 6.9 x10*3/UL 2.0-7.8 [facility] ([facility]) ID Date Data Source [id number] 02/22/2021 02:25:00 PM EDT [facility] ([facility]) Name Value Range Interpretation Code Description Data Yolanda rce(s) Supporting Document(s) Creatinine For GFR 0.80 mg/dL 0.55-1.30 [facility] ([facility]) Glomerular Filtration Rate Laboratory test result [facility]) <content>Units are mL/min/1.73 m2</content>
<content></content>
<content>Chronic Kidney Disease Staging per NKF:</content>
<content></content>
<content>Stage I & II GFR >=60 Normal to Mildly Decreased</content>
<content>Stage III GFR 30- 59 Moderately Decreased</content>
<content>Stage IV GFR 15-29 Severely Decreased</content>
<content>Stage V GFR <15 Very Little GFR Left</content>
<content>ESRD GFR <15 on BIOLOGICS SPECIALIST</content>
<content></content> ID Date Data Source [id number] 02/22/2021 02:25:00 PM EDT [facility] ([facility]) Name Value Range Interpretation Code Description Data Yolanda rce(s) Supporting Document(s) Urea nitrogen [Mass/volume] in Serum or Plasma 16 mg/dL 7-18 [facility] ([facility]) ID Date Data Source [id number] 02/22/2021 02:25:00 PM EDT [facility] ([facility], ) Name Value Range Interpretation Code Description Data Yolanda rce(s) Supporting Document(s) Creatinine For GFR 0.80 mg/dL 0.55-1.30 Normal (applies to non -numeric results) [facility] ([facility] system) Glomerular Filtration Rate Laboratory test result Normal (applies to non- numeric results) [facility] (Health system) <content>Units are mL/min/1.73 m2</content>
<content></content>
<content>Chronic Kidney Disease Staging per NKF:</content>
<content></content>
<content>Stage I & II GFR >=60 Normal to Mildly Decreased</content>
<content>Stage III GFR 30- 59 Moderately Decreased</content>
<content>Stage IV GFR 15-29 Severely Decreased</content>
<content>Stage V GFR <15 Very Little GFR Left</content>
<content>ESRD GFR <15 on BIOLOGICS SPECIALIST</content>
<content></content> ID Date Data Source [id number] 02/22/2021 02:25:00 PM EDT [facility] ([facility]) Name Value Range Interpretation Code Description Data Yolanda rce(s) Supporting Document(s) Urea nitrogen [Mass/volume] in Serum or Plasma 16 mg/dL 7 -18 Normal (applies to non-numeric results) [facility]) ID Date Data Source [id number] 02/06/2021 12:08:00 PM EDT [facility] ([facility]) Name Value Range Interpretation Code Description Data Yolanda rce(s) Supporting Document(s) Monitr Crohn's Disease Laboratory test result No rmal (applies to non-numeric results) [facility]) SEE SEPARATE REPORT ID Date Data Source [id number] 02/06/2021 12:08:00 PM EDT [facility] ([facility]) Name Value Range Interpretation Code Description Data Yolanda rce(s) Supporting Document(s) QuantiFERON TB1 Ag Value 0.05 IU/ml Normal (applies to non -numeric results) [facility] (Health system) QuantiFERON Criteria Laboratory test result Norm al (applies to non-numeric results) [facility] (Health system) . The QuantiFERON-TB Gold Plus result is determined by subtracting the Nil value from either TB antigen (Ag) tube. The mitogen tube serves as a control for the test. QuantiFERON Nil Value 0.06 IU/ml Normal (applies to non-nu meric results) [facility] (Health system) QuantiFERON TB2 Ag Value 0.05 IU/ml Normal (applies to non -numeric results) [facility] (Health system) QuantiFERON-TB Gold Plus Laboratory test result Normal (applies to non-numeric results) [facility]) The specimen received for QuantiFERON te sting was incubated by the ordering institution. Specific procedures outlined in our Directory of Services and in the package insert for the QuantiFERON Gold (In Tube) test must be followed to enable for proper stimulation of cells for the production of interferon gamma. Chemiluminescence immunoassay methodology Performed at: [address] [place] [id number] Edi Consultant: Leonor Flores MD, Phone: [phone] QuantiFERON Mitogen Value Laboratory test result Normal (applies to non- numeric results) [facility] (Health system) ID Date Data Source [id number] 02/06/2021 12:08:00 PM EDT [facility] ([facility]) Name Value Range Interpretation Code Description Data Yolanda rce(s) Supporting Document(s) Hepatitis B virus surface Ab [Units/volume] in Serum 4.9 mIU/mL Below low normal [facility] (Health system) Status of Immunity A nti-HBs Level - Inconsistent with Immunity 0.0 - 9.9 Consistent with Immunity >9.9 Hepatitis B virus core Ab [Presence] in Serum Laboratory test re sult Normal (applies to non-numeric results) [facility]) Performed at: RN - [facility] [address] [id number] Edi Consultant: Leonor Flores MD, Phone: [phone] ID Date Data Source [id number] 02/06/2021 12:08:00 PM EDT [facility] ([facility]) Name Value Range Interpretation Code Description Data Yolanda rce(s) Supporting Document(s) Ibdser1 Laboratory test result Normal (applies to non-n umeric results) [facility] (Health system) SEE SEPARATE REPORT Crohn1 Laboratory test result Normal (applies to non-n umeric results) [facility] (Health system) SEE SEPARATE REPORT Testing performed at reference lab . Report copy to follow on a separate form. 02/22/21 REF LAB#:[id number] ID Date Data Source [id number] 02/06/2021 12:08:00 PM EDT [facility] ([facility]) Name Value Range Interpretation Code Description Data Yolanda rce(s) Supporting Document(s) Erythrocyte sedimentation rate by Westergren method 44 mm/hr 0-30 Above high normal [facility] (Health system) C reactive protein [Mass/volume] in Serum or Plasma by High sensitivity method 0.66 mg/dL 0.00-0.30 Above high normal [facility] ([facility]) ID Date Data Source [id number] 02/06/2021 12:08:00 PM EDT [facility] ([facility]) Name Value Range Interpretation Code Description Data Yolanda rce(s) Supporting Document(s) Vitamin B12 Level 764 pg/mL Normal (applies to non-numeri c results) [facility] (Health system) VITAMIN B12 NORMAL RANGE NORMAL 247 - 911 PG/ML INDETERMINATE 211 - 246 PG/ML DEFICIENT LESS THAN 211 PG/ML Folate 20.3 ng/mL Normal (applies to non-numeric resul ts) [facility] (Health system) FOLATE NORMAL RANGE NORMAL GREATER THAN 5.4 NG/ML INDETERMINATE 3.4-5.4 NG/ML DEFICIENT LESS THAN 3.4 NG/ML ID Date Data Source [id number] 02/06/2021 12:08:00 PM EDT [facility] ([facility]) Name Value Range Interpretation Code Description Data Yolanda rce(s) Supporting Document(s) Iron (Fe) 37 ug/dL 50-170 Below low normal [facility] ( [facility] system) Total Iron Binding Capacity 383 ug/dL 250-450 Norm al (applies to non-numeric results) [facility] (Health system) Percent Saturation 9.7 % 13.2-45.0 Below low normal [facility] ([facility] system) ID Date Data Source [id number] 02/06/2021 12:08:00 PM EDT [facility] ([facility]) Name Value Range Interpretation Code Description Data Yolanda rce(s) Supporting Document(s) Red Blood Count 4.32 10 4.00-5.40 Normal (applies to non-numeric results) [facility] ([facility] system) White Blood Count 10.1 10 4.0-10.0 Above high normal [facility] ([facility] system) Hemoglobin 11.7 g/dL 12.0-15.5 Below low normal [facility] ( [facility] system) Hematocrit 36.6 % 36.0-47.0 Normal (applies to non-numeric resul ts) [facility] ([facility]) Mean Corpuscular Volume 84.7 fl 80.0-96.0 Normal ( applies to non-numeric results) [facility] ([facility] system) Mean Corpuscular Hemoglobin 27.1 pg 27.0-33.0 Norm al (applies to non-numeric results) [facility] ([facility] system) Mean Corpuscular HGB Conc 32.0 g/dL 32.0-36.5 Normal (applies to non-numeric results) [facility] ([facility]) Red Cell Distribution Width 17.5 % 11.5-14.5 Above high normal [facility] ([facility]) Platelet Count, Automated 510 10 150-450 Above high normal [facility] ([facility]) Lymph % 20.5 % 24.0-44.0 Below low normal [facility] ( [facility]) Neutrophils % 70.4 % 36.0-66.0 Above high normal [facility] ([facility] system) [place] % 7.0 % 2.0-8.0 Normal (applies to non-numeric resul ts) [facility] ([facility]) Eos % 1.1 % 0.0-3.0 Normal (applies to non-numeric resul ts) [facility] Baso % 0.6 % 0.0-1.0 Normal (applies to non-numeric resul ts) [facility] ([facility]) Nucleated Red Blood Cell % 0.0 % 0-0 Normal (applies to n on-numeric results) [facility] ([facility]) Immature Granulocyte % 0.4 % 0-3.0 Normal (applies to non-n umeric results) [facility] ([facility]) Lymph # 2.1 10 1.5-5.0 Normal (applies to non-numeric resul ts) [facility]) Neutrophils # 7.1 10 1.5-8.5 Normal (applies to non-numeric re sults) [facility] ([facility]) [place] # 0.7 10 0.0-0.8 Normal (applies to non-numeric resul ts) [facility] ([facility], ) Eos # 0.1 10 0.0-0.5 Normal (applies to non-numeric resul ts) [facility] ([facility]) Baso # 0.1 10 0.0-0.2 Normal (applies to non-numeric resul ts) [facility] ([facility]) ID Date Data Source [id number] 02/06/2021 12:08:00 PM EDT [facility] Name Value Range Interpretation Code Description Data Yolanda rce(s) Supporting Document(s) Laboratory test finding (navigational concept) Laboratory test result [facility] ([facility]) SEE SEPARATE REPORT Laboratory test finding (navigational concept) Laboratory test result [facility]) SEE SEPARATE REPORT Testing performed at reference lab . Report copy to follow on a separate form. 02/22/21 REF LAB#:[id number] ID Date Data Source [id number] 02/06/2021 12:08:00 PM EDT [facility] ([facility]) Name Value Range Interpretation Code Description Data Yolanad rce(s) Supporting Document(s) Laboratory test finding (navigational concept) Laboratory test result [facility] ([facility]) SEE SEPARATE REPORT ID Date Data Source [id number] 02/06/2021 12:08:00 PM EDT [facility] ([facility]) Name Value Range Interpretation Code Description Data Yolanda rce(s) Supporting Document(s) Hepatitis B virus surface Ab [Units/volume] in Serum 4.9 mIU/mL [facility] ([facility]) Status of Immunity A nti-HBs Level - Inconsistent with Immunity 0.0 - 9.9 Consistent with Immunity >9.9 Hepatitis B virus core Ab [Presence] in Serum Laboratory test result [facility] ([facility]) Performed at: RN - [facility] [address] [id number] Edi Consultant: Leonor Flores MD, Phone: [phone] ID Date Data Source [id number] 02/06/2021 12:08:00 PM EDT [facility] ([facility]) Name Value Range Interpretation Code Description Data Yolanda rce(s) Supporting Document(s) QuantiFERON Criteria Laboratory test result [facility] ([facility]) . The QuantiFERON-TB Gold Plus result is determined by subtracting the Nil value from either TB antigen (Ag) tube. The mitogen tube serves as a control for the test. QuantiFERON TB1 Ag Value 0.05 IU/ml [facility] ([facility]) QuantiFERON TB2 Ag Value 0.05 IU/ml [facility] ([facility]) QuantiFERON Nil Value 0.06 IU/ml [facility] ([facility]) QuantiFERON Mitogen Value Laboratory test result [facility] QuantiFERON-TB Gold Plus Laboratory test result [facility] ([facility]) The specimen received for QuantiFERON te sting was incubated by the ordering institution. Specific procedures outlined in our Directory of Services and in the package insert for the QuantiFERON Gold (In Tube) test must be followed to enable for proper stimulation of cells for the production of interferon gamma. Chemiluminescence immunoassay methodology Performed at: - [facility] [address] [id number] Edi Consultant: Leonor Flores MD, Phone: [phone] ID Date Data Source [id number] 02/06/2021 12:08:00 PM EDT [facility]) Name Value Range Interpretation Code Description Data Yolanda rce(s) Supporting Document(s) C reactive protein [Mass/volume] in Serum or Plasma by High sensitivity method 0.66 mg/dL 0.00-0.30 [facility] ([facility] ) ID Date Data Source [id number] 02/06/2021 12:08:00 PM EDT [facility] Name Value Range Interpretation Code Description Data Yolanda rce(s) Supporting Document(s) Vitamin B12 Level 764 pg/mL [facility] ([facility]) VITAMIN B12 NORMAL RANGE NORMAL 247 - 911 PG/ML INDETERMINATE 211 - 246 PG/ML DEFICIENT LESS THAN 211 PG/ML Folate 20.3 ng/mL [facility]) FOLATE NORMAL RANGE NORMAL GREATER THAN 5.4 NG/ML INDETERMINATE 3.4-5.4 NG/ML DEFICIENT LESS THAN 3.4 NG/ML ID Date Data Source [id number] 02/06/2021 12:08:00 PM EDT MEDENT ([facility]) Name Value Range Interpretation Code Description Data Yolanda rce(s) Supporting Document(s) Iron (Fe) 37 ug/dL 50-170 [facility] ([facility] Total Iron Binding Capacity 383 ug/dL 250-450 ME DENT ([facility]) Percent Saturation 9.7 % 13.2-45.0 MEDENT ([facility]) ID Date Data Source [id number] 02/06/2021 12:08:00 PM EDT MEDENT ([facility]) Name Value Range Interpretation Code Description Data Yolanda rce(s) Supporting Document(s) Erythrocyte sedimentation rate by Westergren method 44 mm/hr 0-30 MEDENT ([facility]) ID Date Data Source [id number] 02/06/2021 12:08:00 PM EDT MEDENT ([facility]) Name Value Range Interpretation Code Description Data Yolanda rce(s) Supporting Document(s) White Blood Count 10.1 10 4.0-10.0 MEDENT ([facility]) Red Blood Count 4.32 10 4.00-5.40 MEDENT ([facility]) Hemoglobin 11.7 g/dL 12.0-15.5 MEDENT ([facility]) Hematocrit 36.6 % 36.0-47.0 MEDENT ([facility]) Mean Corpuscular Volume 84.7 fl 80.0-96.0 MEDENT ([facility]) Mean Corpuscular Hemoglobin 27.1 pg 27.0-33.0 ME DENT ([facility]) Mean Corpuscular HGB Conc 32.0 g/dL 32.0-36.5 MEDE NT ([facility]) Red Cell Distribution Width 17.5 % 11.5-14.5 ME DENT ([facility]) Platelet Count, Automated 510 10 150-450 MEDE NT ([facility]) Neutrophils % 70.4 % 36.0-66.0 MEDENT ([facility]) Lymph % 20.5 % 24.0-44.0 [facility] ([facility]) [place] % 7.0 % 2.0-8.0 [facility] Eos % 1.1 % 0.0-3.0 [facility] Baso % 0.6 % 0.0-1.0 [facility] Immature Granulocyte % 0.4 % 0-3.0 MEDENT ([facility]) Nucleated Red Blood Cell % 0.0 % 0-0 MED ENT ([facility]) Neutrophils # 7.1 10 1.5-8.5 MEDENT ([facility]) Lymph # 2.1 10 1.5-5.0 [facility] [place] # 0.7 10 0.0-0.8 [facility] Eos # 0.1 10 0.0-0.5 [facility] Baso # 0.1 10 0.0-0.2 [facility] ID Date Data Source [id number] 11/23/2020 04:49:00 PM EST MEDENT ([facility], [facility]) Name Value Range Interpretation Code Description Data Yolanda rce(s) Supporting Document(s) Bacteria identified in Urine by Culture Laboratory test result MEDENT ([facility]) <content>FULL REPORT IN LAB NOTES (eCW a nd Medent).</content>
<content></content>
<content>ORGANISM 1: ESCHERICHIA COLI</content>
<content></content>
<content>COLONY COUNT > 100,000</content>
<content></content>
<content></content>
<content>O RGANISM 1: ESCHERICHIA COLI</content>
<content></content>
<content> ESCHERICHIA COLI: REACTION</content>
<content>TRIMETHOPRIM/SULFAMETHOXAZOLE IV 160mg TMP & 800mg SMXq6h <=20 S</content>
<content> TRIMETHOPRIM/SULFAMETHOXAZOLE PO Bactrim DS Bid <=20 S</content>
<content>AMPICILLIN IV 500mg q6h <=2 S</content>
<content>AMPICILLIN PO 500mg q6h fasting <=2 S</content>
<content>GENTAMICIN IV 80mg q8h <=1 S</content>
<content>NITROFURANTOIN PO 100mg BID <=16 S</content>
<content>CEFAZOLIN IV 1gm q8h <=4 S</content>
<content>LEVOFLOXACIN IV 500mg qd <=0.12 S</content>
<content>LEVOFLOXACIN PO 250mg qd <=0.12 S</content>
<content>LEVOFLOXACIN PO 500mg qd <=0.12 S</content>
<content>TOBRAMYCIN IV 80mg q8h <=1 S</content>
<content> CEFTRIAXONE IV 1gm q24h <=1 S</content>
<content>CEFTAZIDIME IV 1gm q8h <=1 S</content>
<content>AMPICILLIN/SULBACTAM IV 1.5g q6h <=2 S</content>
<content>PIPERACILLIN/TAZOBACTAM IV 2.25 gm q6h <=4 S</content>
<content>AZTREONAM IV 1gm q8h <=1 S</content>
<content>ERTAPENEM IV 1gm qd <=0.5 S</content>
<content> MEROPENEM IV 1 gm q8h <=0.25 S</content>
<content>MEROPENEM IV 500 mg q8h <=0.25 S</content>
<content>TIGECYCLINE IV 50mg q12h <=0.5 S</content>
<content>CEFEPIME IV 1 gm q12h <=1 S</content>
<content>CEFEPIME IV 2 gm q12h <=1 S</content>
<content>EXTD BRD SPCTRM BETA LACTAMASE IV NEGATIVE FOR ESBL</content>
<content></content> ID Date Data Source [id number] 10/26/2020 01:20:00 PM EST [facility] Name Value Range Interpretation Code Description Data Yolanda rce(s) Supporting Document(s) Laboratory test finding (navigational concept) Laboratory test result [facility] ([facility]) Test: COVID-19 Nasal/Naspharynx Result: NOT DETECTED Reference Units: Not detected Note: Please consider re-collection of a new specimen, if clinically indicated. Note: The COVID-19 assay is under Emergency Use Authorization(EUA) by the U.S. Food and Drug Administration. [facility] is designated as a high complexity laboratory by the Clinical Laboratory Improvement Amendments of 1988(CLIA) and is qualified to perform this test. ASSAY INFORMATION: Real Time RT-PCR ID Date Data Source [id number] 10/26/2020 12:00:00 AM EST [facility] Name Value Range Interpretation Code Description Data Yolanda rce(s) Supporting Document(s) 2019-nCoV RNA XXX PRANAV+probe-Imp [facility] This lab was ordered by [facility] and reported by [employer] ID Date Data Source [id number] 10/04/2020 11:48:00 AM EST [facility] Name Value Range Interpretation Code Description Data Yolanda rce(s) Supporting Document(s) Urine Creatinine 40.5 mg/dL 30.0-125.0 MEDENT ([facility]) Microalbumin Urine 4.3 mg/L 1.3-20.0 MEDENT ([facility]) Microalb/Creat Ratio 10.6 ug/mg 0.0-30.0 MED[facility] ( [facility]) ID Date Data Source [id number] 10/04/2020 11:48:00 AM EST MED[facility] ([facility]) Name Value Range Interpretation Code Description Data Yolanda rce(s) Supporting Document(s) Urea nitrogen [Mass/volume] in Serum or Plasma 15 mg/dL 7-18 MED[facility] ([facility]) Glucose [Mass/volume] in Serum or Plasma 96 mg/dL 74-99 MED[facility] ([facility]) 100-125 mg/dL PRE-DIABETES/FASTING >126 mg/dL DIABETES/FASTING Creatinine 1.0 mg/dL 0.6-1.3 [facility] ([facility]) Sodium [Moles/volume] in Serum or Plasma 139 meq/L 136-145 [facility] ([facility]) Chloride [Moles/volume] in Serum or Plasma 103 meq/L 98-107 [facility] ([facility]) Potassium [Moles/volume] in Serum or Plasma 5.1 meq/L 3.5-5.1 [facility] ([facility]) Carbon dioxide, total [Moles/volume] in Serum or Plasma 28 meq/L 21 -32 [facility] ([facility]) Calcium [Mass/volume] in Serum or Plasma 9.5 mg/dL 8.5-10.1 [facility] ([facility]) Glomerular filtration rate/1.73 sq M pre dicted among blacks [Volume Rate/Area] in Serum or Plasma by Creatinine-based formula (MDRD) Laboratory test result [facility] ([facility]) <content>CHRONIC KIDNEY DISEASE STAGING PER NKF</content>
<content></content>
<content>STAGE I & II GFR >= 60 NORMAL TO MILDLY DECREASED</content>
<content>STAGE III GFR 30-59 MODERATELY DECREASED</content>
<content>STAGE IV GFR 15-29 SEVERELY DECREASED</content>
<content>STAGE V GFR <15 VERY LITTLE GFR LEFT</content>
<content>ESRD GFR <15 ON BIOLOGICS SPECIALIST</content>
<content></content> Glomerular filtration rate/1.73 sq M pre dicted among non-blacks [Volume Rate/Area] in Serum or Plasma by Creatinine-based formula (MDRD) 55 mL/min [facility] ([facility]) ID Date Data Source [id number] 10/04/2020 11:48:00 AM EST [facility] ([facility]) Name Value Range Interpretation Code Description Data Yolanda rce(s) Supporting Document(s) Hemoglobin A1c/Hemoglobin.total in Blood 6.4 % [facility] ([facility]) Lab Result Notes: Pre-Diabetes 5.7 - 6.4 % Diabetes = or > 6.5% Glucose mean value [Mass/volume] in Blood Estimated fr om glycated hemoglobin 137 mg/dL 60-110 [facility] ([facility] ) ID Date Data Source [id number] 10/04/2020 11:48:00 AM EST [facility] ([facility]) Name Value Range Interpretation Code Description Data Yolanda rce(s) Supporting Document(s) Leukocytes [#/volume] in Blood by Automated count 9.0 x10*3/UL 4.1-10 .9 [facility] ([facility] NOTE: RESULT VERIFIED. Hemoglobin [Mass/volume] in Blood 11.4 g/dL 12.0-18.0 [facility] ([facility] Erythrocytes [#/volume] in Blood by Automated count 4.14 x10*6/UL 4.2 0-6.30 [facility] ([facility] MCV 81.3 fL 80.0-97.0 [facility] ([facility]) Hematocrit [Volume Fraction] of Blood by Automated count 33.7 % 3 7.0-51.0 [facility] ([facility] MCH 27.5 pg 26.0-32.0 [facility] ([facility]) MCHC 33.9 g/dL 31.0-38.0 [facility] ([facility]) Erythrocyte distribution width [Ratio] by Automated count 15.6 % 11.6-13.7 [facility] ([facility]) Platelets [#/volume] in Blood by Automated count 557 x10*3/UL 140-440 [facility] ([facility]) Mid % 5.7 % 1.7-9.3 [facility] MPV 8.4 FL 7.8-11.0 [facility] Lymph % 20.8 % 10.0-58.5 [facility] Neut % 73.5 % 37.0-92.0 [facility] Lymph # 1.8 x10*3/UL 0.6-4.1 [facility] ([facility]) Neut # 6.6 x10*3/UL 2.0-7.8 [facility] ([facility]) Mid # 0.6 x10*3/UL 0.1-0.6 [facility] ([facility]) Procedure Social History Code Duration Value Status Description Data Source(s ) Smoking 08/28/2021 12:00:00 AM EDT Never Smoker completed Never S moker eCW1 ([facility]) Smoking 08/28/2021 12:00:00 AM EDT Never Smoker completed Never S moker eCW1 ([facility]) Smoking 08/28/2021 12:00:00 AM EDT Never Smoker completed Never S moker eCW1 ([facility]) Smoking 11/23/2020 12:00:00 AM EST Patient has never smoked co mpleted Patient has never smoked [facility]ENT ([facility], [facility]) Vital Signs ID Date Data Source UNK Name Value Range Interpretation Code Description Data Source(s) Systolic blood pressure 141 mm[Hg] 141 mm[Hg] e CW1 ([facility]) Body temperature 98.1 [degF] 98.1 [degF] eCW1 ( [facility]) Diastolic blood pressure 63 mm[Hg] 63 mm[Hg] eCW1 ([facility]) Body height 60 [in_i] 60 [in_i] eCW1 ([facility]) Body mass index (BMI) [Ratio] 24.21 kg/m2 24.21 kg/m2 eCW1 ([facility]) Respiratory rate 17 /min 17 /min eCW1 ([facility]) Heart rate 102 /min 102 /min eCW1 ([facility]) Body weight 124 [lb_av] 124 [lb_av] eCW1 ([facility]) Systolic blood pressure 112 mm[Hg] 112 mm[Hg] M EDENT ([facility]) Diastolic blood pressure 70 mm[Hg] 70 mm[Hg] MEDENT ([facility]) Heart rate 98 /min 98 /min MEDENT ([facility]) Body height 61.25 [in_i] 61.25 [in_i] MEDENT ( [facility]) 5'1.25" Body weight 122.00 [lb_av] 122.00 [lb_av] MEDEN T ([facility]) Oxygen saturation in Arterial blood by Pulse oximetry 97 % 97 % MEDENT ([facility]) Body mass index (BMI) [Ratio] 22.9 kg/m2 22.9 k g/m2 MED[facility] ([facility]) Body surface area Derived from formula 1.53 m2 1.53 m2 MEDENT ([facility], ) Systolic blood pressure 112 mm[Hg] 112 mm[Hg] M EDENT ([facility], ) Diastolic blood pressure 64 mm[Hg] 64 mm[Hg] MEDENT ([facility], ) Body height 60.5 [in_i] 60.5 [in_i] MEDENT ([facility], ) 5'0.50" Body weight 124.00 [lb_av] 124.00 [lb_av] MEDEN T ([facility], ) Body mass index (BMI) [Ratio] 23.8 kg/m2 23.8 k g/m2 [facility] ([facility], ) [place] body weight 100 [lb_av] 100 [lb_av] MEDEN T ([facility], ) Body weight 56.246 kg 56.246 kg [facility] ([facility]) Body weight 125.00 [lb_av] 125.00 [lb_av] MEDEN T ([facility]) Systolic blood pressure 130 mm[Hg] 130 mm[Hg] M EDENT ([facility]) Diastolic blood pressure 64 mm[Hg] 64 mm[Hg] MEDENT ([facility]) Heart rate 88 /min 88 /min MEDENT ([facility]) Body height 61.25 [in_i] 61.25 [in_i] MEDENT ([facility]) 5'1.25" Oxygen saturation in Arterial blood by Pulse oximetry 96 % 96 % [facility] ([facility]) Body mass index (BMI) [Ratio] 23.4 kg/m2 23.4 k g/m2 [facility] ([facility]) Systolic blood pressure 126 mm[Hg] 126 mm[Hg] [facility] Diastolic blood pressure 62 mm[Hg] 62 mm[Hg] [facility] (Health system) Body surface area Derived from formula 1.52 m2 1.52 m2 [facility] (Health system) Body height 60.5 [in_i] 60.5 [in_i] [facility] ([facility]) 5'0.50" Body weight 122.00 [lb_av] 122.00 [lb_av] MEDEN T (Health system) Body mass index (BMI) [Ratio] 23.4 kg/m2 23.4 k g/m2 [facility] (Health system) [place] body weight 100 [lb_av] 100 [lb_av] MEDEN T (Health system) Body weight 55.339 kg 55.339 kg [facility] ([facility]) [place] body weight 100 [lb_av] 100 [lb_av] MEDEN T (Health system) Body weight 53.071 kg 53.071 kg [facility] ([facility]) Body surface area Derived from formula 1.50 m2 1.50 m2 [facility] (Health system) Body height 60.5 [in_i] 60.5 [in_i] [facility] ([facility]) 5'0.50" Body weight 117.00 [lb_av] 117.00 [lb_av] MEDEN T (Health system) Systolic blood pressure 118 mm[Hg] 118 mm[Hg] M EDENT (Health system) Diastolic blood pressure 60 mm[Hg] 60 mm[Hg] [facility] Body height 60.5 [in_i] 60.5 [in_i] [facility] ([facility]) 5'0.50" Body weight 117.00 [lb_av] 117.00 [lb_av] MEDEN T (Health system) Body mass index (BMI) [Ratio] 22.5 kg/m2 22.5 k g/m2 [facility] (Health system) Body mass index (BMI) [Ratio] 22.5 kg/m2 22.5 k g/m2 [facility] (Health system) [place] body weight 100 [lb_av] 100 [lb_av] MEDEN T (Health system) Body weight 53.071 kg 53.071 kg [facility] ([facility]) Body surface area Derived from formula 1.50 m2 1.50 m2 [facility] (Health system) Systolic blood pressure 128 mm[Hg] 128 mm[Hg] [facility]) Diastolic blood pressure 68 mm[Hg] 68 mm[Hg] [facility] ([facility]) Heart rate 74 /min 74 /min [facility] ([facility]) Body height 61.25 [in_i] 61.25 [in_i] [facility] ( [facility]) 5'1.25" Body weight 118.50 [lb_av] 118.50 [lb_av] MEDEN T ([facility]) Oxygen saturation in Arterial blood by Pulse oximetry 98 % 98 % [facility] ([facility]) Air Body mass index (BMI) [Ratio] 22.2 kg/m2 22.2 k g/m2 MED[facility] ([facility]) Body height 61.25 [in_i] 61.25 [in_i] [facility] ([facility]) 5'1.25" Systolic blood pressure 144 mm[Hg] 144 mm[Hg] [facility]) Body mass index (BMI) [Ratio] 21.7 kg/m2 21.7 k g/m2 [facility] ([facility]) Diastolic blood pressure 68 mm[Hg] 68 mm[Hg] [facility] ([facility]) Systolic blood pressure 146 mm[Hg] 146 mm[Hg] [facility] ([facility]) Diastolic blood pressure 62 mm[Hg] 62 mm[Hg] [facility] ([facility]) Heart rate 88 /min 88 /min [facility] ([facility]) Body weight 116.00 [lb_av] 116.00 [lb_av] MEDEN T ([facility]) Systolic blood pressure 110 mm[Hg] 110 mm[Hg] [facility] (Health system) Diastolic blood pressure 60 mm[Hg] 60 mm[Hg] [facility] (Health system) Body height 60.5 [in_i] 60.5 [in_i] [facility] ([facility]) 5'0.50" Body weight 116.00 [lb_av] 116.00 [lb_av] [facility] Body mass index (BMI) [Ratio] 22.3 kg/m2 22.3 k g/m2 [facility] (Health system) [place] body weight 100 [lb_av] 100 [lb_av] [facility]) Body weight 52.618 kg 52.618 kg [facility] ([facility]) Body surface area Derived from formula 1.49 m2 1.49 m2 [facility] (Health system) Systolic blood pressure 156 mm[Hg] 156 mm[Hg] [facility] Heart rate 116 /min 116 /min [facility] ([facility] Respiratory rate 15 /min 15 /min [facility] ( [facility]) Oxygen saturation in Arterial blood by Pulse oximetry 97 % 97 % [facility] ([facility]) Body temperature 98.1 [degF] 98.1 [degF] [facility] ([facility]) Body weight 114.00 [lb_av] 114.00 [lb_av] MEDEN T ([facility]) Body height 60 [in_i] 60 [in_i] [facility] ([facility]) 5'0" Diastolic blood pressure 76 mm[Hg] 76 mm[Hg] [facility] ([facility]) Body mass index (BMI) [Ratio] 22.3 kg/m2 22.3 k g/m2 [facility] ([facility]) Body height 61.25 [in_i] 61.25 [in_i] [facility] ([facility]) 5'1.25" Body weight 117.00 [lb_av] 117.00 [lb_av] MEDEN T ([facility]) Oxygen saturation in Arterial blood by Pulse oximetry 97 % 97 % [facility] ([facility]) Air Body mass index (BMI) [Ratio] 21.9 kg/m2 21.9 k g/m2 [facility] ([facility]) Systolic blood pressure 120 mm[Hg] 120 mm[Hg] M EDENT ([facility]) Diastolic blood pressure 70 mm[Hg] 70 mm[Hg] [facility] ([facility]) Heart rate 90 /min 90 /min [facility] ([facility])
[2021-09-20 09:46] VITALS: BP 105/55
--- NOTE | 2021-09-20 10:09 | ROOR ---
Patient Name: Nayely Jimenez Procedure Date: 09/20/2021 8:55 AM Date of : 1955 Age: 66 Room: [facility] Gender: Female Note Status: Finalized Procedure: Colonoscopy Indications: Abnormal small bowel series, Disease activity assessment of Crohn's disease of the small bowel, Assess therapeutic response to therapy of Crohn's disease of the small bowel Providers: Ruiz Wan MD Referring MD: Kathleen Das NP Requesting Provider: Medicines: Monitored Anesthesia Care Complications: No immediate complications. Procedure: Pre-Anesthesia Assessment: - Prior to the procedure, a History and Physical was performed, and patient medications and allergies were reviewed. The patient is competent. The risks and benefits of the procedure and the sedation options and risks were discussed with the patient. All questions were answered and informed consent was obtained. Patient identification and proposed procedure were verified by the physician, the nurse and the anesthesiologist in the procedure room. Mental Status Examination: alert and oriented. Airway Examination: normal oropharyngeal airway and neck mobility. Respiratory Examination: clear to auscultation. CV Examination: normal. Prophylactic Antibiotics: The patient does not require prophylactic antibiotics. Prior Anticoagulants: The patient has taken no previous anticoagulant or antiplatelet agents. ASA Grade Assessment: III - A patient with severe systemic disease. After reviewing the risks and benefits, the patient was deemed in satisfactory condition to undergo the procedure. The anesthesia plan was to use monitored anesthesia care (MAC). Immediately prior to administration of medications, the patient was re-assessed for adequacy to receive sedatives. The heart rate, respiratory rate, oxygen saturations, blood pressure, adequacy of pulmonary ventilation, and response to care were monitored throughout the procedure. The physical status of the patient was re-assessed after the procedure. The Colonoscope was introduced through the ileostomy and advanced to 20 cm into the ileum. The colonoscopy was performed without difficulty. The patient tolerated the procedure well. The quality of the bowel preparation was good. The terminal ileum was photographed. Scope insertion time was 3 minutes. Scope withdrawal time was 6 minutes. The total duration of the procedure was 9 minutes. Findings: Patchy inflammation, moderate in severity and graded as Rutgeerts Score i2 (more than five aphthous lesions with normal intervening mucosa or skip areas of larger lesions or lesions confined to the ileocolonic anastomosis) and characterized by erythema, granularity, serpentine ulcerations and shallow ulcerations was found at 15 cm Proximal to the Stoma. Biopsies were taken with a cold forceps for histology. Verification of patient identification for the specimen was done by the physician and nurse using the patient's name, date and medical record number. Estimated blood loss was minimal. The area at 24 cm proximal to the stoma contained a benign-appearing, intrinsic severe stenosis measuring 8 cm (in length) x 8 mm (inner diameter) that was non-traversed. Biopsies were taken with a cold forceps for histology. There was evidence of a patent end ileostomy found in the distal ileum. This was characterized by healthy appearing mucosa. Impression: - Crohn's disease with ileitis. Biopsied. - Stricture in the area at 24 cm proximal to the stoma. Biopsied. - Patent end ileostomy with healthy appearing mucosa in the distal ileum. Recommendation: - Patient has a contact number available for emergencies. The signs and symptoms of potential delayed complications were discussed with the patient. Return to normal activities tomorrow. Written discharge instructions were provided to the patient. - Mechanical soft diet. - Continue present medications. - Use Entocort EC (budesonide) (Tapering course) 9mg dose daily for 4 weeks, then 6mg dose for 4 weeks and then 3 mg dose for last 4 weeks. Take tablets together PO one time per day. - Await pathology results. - Check with Clinic for the interval labs to be done for monitoring in 6 weeks. - Return to GI clinic in [facility] (address: [id number] [place] [address], [address] [place] [address], [place], [place],[address]) in 4 -- 6 weeks. Please call GI clinic @ [phone] for apppointment date and time. - Return to primary care physician. Procedure Code(s): --- Professional --- 07226, Ileoscopy, through stoma; with biopsy, single or multiple Diagnosis Code(s): --- Professional --- K50.012, Crohn's disease of small intestine with intestinal obstruction Z93.2, Ileostomy status R93.3, Abnormal findings on diagnostic imaging of other parts of digestive tract CPT copyright 2019 [employer]. All rights reserved. The codes documented in this report are preliminary and upon client portfolio manager review may be revised to meet current compliance requirements. Ruiz Wan MD Ruiz Wan MD 09/20/2021 10:08:59 AM Electronically signed by Ruiz Wan MD Number of Addenda: 0 Note Initiated On: 09/20/2021 8:55 AM Estimated Blood Loss: Estimated blood loss was minimal.
== END 2021-09-20 10:19 | disposition home or self-care (01) ==
LOC: M OPP 07:54
PROVIDERS: ATTEND Internal Medicine Gastroenterology
DX: K50.012 Crohn's disease of small intestine with intestinal obstruction (principal); Z93.2 Ileostomy status; R93.3 Abnormal findings on diagnostic imaging of other parts of digestive tract; Z79.82 Long term (current) use of aspirin; Z79.84 Long term (current) use of oral hypoglycemic drugs; Z79.899 Other long term (current) drug therapy; Z88.1 Allergy status to other antibiotic agents; Z80.1 Family history of malignant neoplasm of trachea, bronchus and lung

== ENCOUNTER → 2022-03-28 | Outpatient (REF) | payer MEDICARE, BC ==
[~2022-03-28] MED LIST changes: -D31000TA2 PO; -LIDOCAINE 2% 100MG/5ML SDV (FOR ANES.) As Ordered ONE; -NS 1,000 ML IV ONE; +OMEP-173 PO; -OMEP-218 PO; +VITA100093 PO; -propofoL 200 MG/20 ML VIAL As Ordered ONE
== END ==
LOC: M LAB REF 16:27
PROVIDERS: ATTEND Nurse Practitioner Adult Health
DX: K50.918 Crohn's disease, unspecified, with other complication (principal); N18.31 Chronic kidney disease, stage 3a

== ENCOUNTER → 2022-05-14 | Outpatient (CLI) | payer MEDICARE, BC | LOC: M WHC 10:41 | PROVIDERS: ATTEND Nurse Practitioner Adult Health | DX: M81.0 Age-related osteoporosis without current pathological fracture (principal) ==

== ENCOUNTER 2022-08-20 11:59 | Outpatient (CLI) | payer MEDICARE, BC ==
[~2022-08-20] VITALS: Ht 152.4 cm; Wt 55.8 kg
[2022-08-20] MEDS ORDERED: USTEKINUMAB 390 MG in NS 172 ML IV ONE (12:00)
[2022-08-20 12:14] VITALS: BP 137/63
[2022-08-20 13:59] VITALS: BP 128/60
== END 2022-08-20 14:00 | disposition home or self-care (01) ==
LOC: M INFU 11:59
PROVIDERS: ATTEND Internal Medicine Gastroenterology
DX: K50.90 Crohn's disease, unspecified, without complications (principal); Z88.1 Allergy status to other antibiotic agents
CPT/HCPCS: 96365; J3358

== ENCOUNTER → 2022-09-18 | Outpatient (CLI) | payer MEDICARE, BC | LOC: M WHC 11:06 | PROVIDERS: ATTEND Nurse Practitioner Adult Health | DX: Z12.31 Encounter for screening mammogram for malignant neoplasm of breast (principal) ==

== ENCOUNTER → 2022-10-11 | Outpatient (CLI) | payer MEDICARE, BC ==
[2022-10-11 11:12] LABS: BLOOD UREA NITROGEN 18 MG/DL (9-23); CALCIUM LEVEL 9.9 MG/DL (8.3-10.6); CARBON DIOXIDE LEVEL 28 MMOL/L (20-31); CHLORIDE LEVEL 107 MMOL/L (98-107); GLOMERULAR FILTRATION RATE > 60.0 (>45); GLUCOSE, FASTING 101 MG/DL (74-106); POTASSIUM SERUM 4.4 MMOL/L (3.5-5.1); SODIUM LEVEL 144 MMOL/L (136-145)
[2022-10-11 13:52] LABS: HEMOGLOBIN A1c 6.2 % (4.0-6.0)
== END ==
LOC: M PLALAB 08:54
PROVIDERS: ATTEND Nurse Practitioner Adult Health
DX: E11.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abetic nephropathy (principal)

== ENCOUNTER → 2022-10-11 | Outpatient (CLI) | payer MEDICARE, BC ==
[2022-10-11 10:46] LABS: BASO # 0.1 10^3/uL (0.0-0.2); BASO % 0.6 % (0.0-1.0); EOS # 0.2 10^3/uL (0.0-0.5); EOS % 1.8 % (0.0-3.0); HEMATOCRIT 39.4 % (36.0-47.0); HEMOGLOBIN 12.5 g/dl (12.0-15.5); LYMPH # 1.5 10^3/uL (1.5-5.0); LYMPH % 18.7 % (24.0-44.0); MEAN CORPUSCULAR HGB CONC 31.7 g/dl (32.0-36.5); MEAN CORPUSCULAR VOLUME 94.7 fl (80.0-96.0); MONO # 0.9 10^3/uL (0.0-0.8); MONO % 10.6 % (2.0-8.0); NEUTROPHILS # 5.6 10^3/uL (1.5-8.5); NEUTROPHILS % 67.9 % (36.0-66.0); PLATELET COUNT, AUTOMATED 389 10^3/uL (150-450); RED BLOOD COUNT 4.16 10^6/uL (4.00-5.40); WHITE BLOOD COUNT 8.2 10^3/uL (4.0-10.0)
== END ==
LOC: M PLALAB 08:51
PROVIDERS: ATTEND Internal Medicine Gastroenterology
DX: K50.812 Crohn's disease of both small and large intestine with intestinal obstruction (principal)

== ENCOUNTER → 2023-03-12 | Outpatient (CLI) | payer MEDICARE, BC | LOC: M WUC 15:12 | PROVIDERS: ATTEND Nurse Practitioner Adult Health | DX: M25.552 Pain in left hip (principal); M54.6 Pain in thoracic spine ==

== ENCOUNTER → 2023-09-22 | Outpatient (CLI) | payer MEDICARE, BC | LOC: M WHC 09:10 | PROVIDERS: ATTEND Nurse Practitioner Family | DX: Z12.31 Encounter for screening mammogram for malignant neoplasm of breast (principal) ==

== ENCOUNTER 2024-06-16 10:15 | Emergency (ER) | payer MEDICARE, BC ==
[~2024-06-16] VITALS: Ht 154.9 cm; Wt 58.0 kg
[2024-06-16 10:51] LABS: BASO # 0.1 10^3/uL (0.0-0.2); BASO % 0.7 % (0.0-1.0); EOS # 0.1 10^3/uL (0.0-0.5); EOS % 0.9 % (0.0-3.0); HEMATOCRIT 37.8 % (36.0-47.0); HEMOGLOBIN 12.6 g/dl (12.0-15.5); LYMPH # 1.9 10^3/uL (1.5-5.0); MEAN CORPUSCULAR HEMOGLOBIN 30.3 pg (27.0-33.0); MEAN CORPUSCULAR HGB CONC 33.3 g/dl (32.0-36.5); MEAN CORPUSCULAR VOLUME 90.9 fl (80.0-96.0); MONO # 0.6 10^3/uL (0.0-0.8); MONO % 7.8 % (2.0-8.0); NEUTROPHILS # 5.4 10^3/uL (1.5-8.5); NEUTROPHILS % 67.1 % (36.0-66.0); PLATELET COUNT, AUTOMATED 331 10^3/uL (150-450); RED BLOOD COUNT 4.16 10^6/uL (4.00-5.40); WHITE BLOOD COUNT 8.1 10^3/uL (4.0-10.0)
[2024-06-16 11:04] LABS: INR 1.01
[2024-06-16 11:12] LABS: CK-MB VALUE MASS < 1.0 NG/ML (<3.6); LIPASE 38 U/L (12-53)
[2024-06-16 11:13] LABS: CPK CREATINE PHOSPHOKINASE 101 U/L (34-145); MB/CK RELATIVE INDEX 0.99 (< OR =4)
[2024-06-16 11:14] LABS: ALBUMIN 3.4 G/DL (3.2-5.2); ALKALINE PHOSPHATASE 109 U/L (46-116); ALT/SGPT 30 U/L (7.0-40); AST/SGOT 21 U/L (<34); BILIRUBIN,DIRECT 0.1 MG/DL (<0.4); BILIRUBIN,TOTAL 0.4 MG/DL (0.3-1.2); BLOOD UREA NITROGEN 19 MG/DL (9-23); CALCIUM LEVEL 9.6 MG/DL (8.3-10.6); CARBON DIOXIDE LEVEL 26 MMOL/L (20-31); CHLORIDE LEVEL 110 MMOL/L (98-107); CREATININE FOR GFR 0.93 MG/DL (0.55-1.30); GLOMERULAR FILTRATION RATE > 60.0 (>39); GLUCOSE, FASTING 101 MG/DL (74-106); POTASSIUM SERUM 4.3 MMOL/L (3.5-5.1); SODIUM LEVEL 140 MMOL/L (136-145)
[2024-06-16] MEDS ORDERED: ISOVUE-370 76% 100ML VIAL As Ordered ONE (12:01)
[2024-06-16 12:27] LABS: CK-MB VALUE MASS < 1.0 NG/ML (<3.6)
[2024-06-16 12:29] LABS: CPK CREATINE PHOSPHOKINASE 101 U/L (34-145); MB/CK RELATIVE INDEX 0.99 (< OR =4)
[2024-06-16 15:00] VITALS: BP 118/57; TEMP 97.7; O2SAT 98
== END 2024-06-16 15:18 | disposition home or self-care (01) ==
LOC: EDBD 10:15 → M ED 10:15
DX: R07.9 Chest pain, unspecified (principal); R00.2 Palpitations; I10 Essential (primary) hypertension; E11.9 Type 2 diabetes mellitus without complications; F41.9 Anxiety disorder, unspecified; F32.A Depression, unspecified; K21.9 Gastro-esophageal reflux disease without esophagitis; Z88.8 Allergy status to other drugs, medicaments and biological substances; Z79.899 Other long term (current) drug therapy; Z79.82 Long term (current) use of aspirin
CPT/HCPCS: 36415; 71045; 71275; 74177; 80053; 82248; 82550; 82553; 83690; 84484; 85025; 85610; 93005; 93041; 94760; 99285; Q9967

== ENCOUNTER 2024-08-01 12:16 | Inpatient (IN) | payer MEDICARE, BC ==
[~2024-08-01] VITALS: Ht 152.4 cm; Wt 54.2 kg
[2024-08-01] MEDS ORDERED: IBUP200C89 PO (12:37)
[2024-08-01] MEDS ORDERED: FERR325T3 PO (13:13)
[2024-08-01 13:17] LABS: BASO % 0.2 % (0.0-1.0); HEMOGLOBIN 14.6 g/dl (12.0-15.5); LYMPH # 0.8 10^3/uL (1.5-5.0); LYMPH % 4.5 % (24.0-44.0); MEAN CORPUSCULAR HGB CONC 34.8 g/dl (32.0-36.5); MEAN CORPUSCULAR VOLUME 89.2 fl (80.0-96.0); MONO # 0.8 10^3/uL (0.0-0.8); MONO % 4.8 % (2.0-8.0); NEUTROPHILS # 15.6 10^3/uL (1.5-8.5); NEUTROPHILS % 90.1 % (36.0-66.0); PLATELET COUNT, AUTOMATED 398 10^3/uL (150-450); RED BLOOD COUNT 4.71 10^6/uL (4.00-5.40); WHITE BLOOD COUNT 17.4 10^3/uL (4.0-10.0)
[2024-08-01] MEDS: NS 1,000 ML IV ONE (13:33)
[2024-08-01] MEDS: ONDANSETRON 4MG 2ML VIAL IV ONE (13:33)
[2024-08-01] MEDS: MORPHINE 4 MG/ML 1ML VIAL IV ONE (13:34)
[2024-08-01 13:49] LABS: BILIRUBIN,DIRECT 0.2 MG/DL (<0.4); BILIRUBIN,TOTAL 0.5 MG/DL (0.3-1.2); CALCIUM LEVEL 10.3 MG/DL (8.3-10.6); CREATININE FOR GFR 1.8 MG/DL (0.55-1.30); GLOMERULAR FILTRATION RATE 29.6 (>39); TOTAL PROTEIN 8.2 G/DL (5.7-8.2)
[2024-08-01] MEDS: BISACODYL 10MG SUPP PR ONE (15:27)
[2024-08-01] MEDS: ACETAMINOPHEN *IV* 500 MG in IV 1 EA IV ONE (16:03)
[2024-08-01] MEDS ORDERED: METOCLOPRAMIDE INJ 10MG/2ML VIAL IV PRN (17:00)
[2024-08-01] MEDS ORDERED: BISACODYL 10MG SUPP XX PRN (17:00)
[2024-08-01] MEDS: CIPROFLOXACIN 400 MG in IV 1 EA IV SCH (17:01)
[2024-08-01] MEDS: NS 500 ML IV ONE (17:02)
[2024-08-01] MEDS ORDERED: ZOLP5TAB PO (17:56)
[2024-08-01] MEDS ORDERED: ALPR0.25 PO (17:56)
[2024-08-01] MEDS ORDERED: ASPI81TA26 PO (17:56)
[2024-08-01] MEDS ORDERED: LOPE1CAP5 PO (17:56)
[2024-08-01] MEDS ORDERED: HOME MED LIST COMPLETE! XX SCH (18:00)
[2024-08-01] MEDS: PANTOPRAZOLE 40MG VIAL IV SCH (18:29)
[2024-08-01] MEDS: metroNIDAZOLE 500 MG in IV 1 EA IV SCH (18:29)
[2024-08-01 18:30] VITALS: BP 114/73; TEMP 98; O2SAT 98
[2024-08-01] MEDS: NS 1,000 ML IV SCH (19:51)
[2024-08-01 20:00] VITALS: BP 109/53; TEMP 98.3; O2SAT 98
[2024-08-02] VITALS: BP 110/52; TEMP 97.6; O2SAT 97
[2024-08-02] MEDS: ACETAMINOPHEN *IV* 1,000 MG in IV 1 EA IV PRN (03:30)
[2024-08-02 04:00] VITALS: BP 98/54; TEMP 97.6; O2SAT 95
[2024-08-02 04:56] LABS: HEMATOCRIT 32.4 % (36.0-47.0); MEAN CORPUSCULAR HEMOGLOBIN 30.3 pg (27.0-33.0); MEAN CORPUSCULAR VOLUME 91.8 fl (80.0-96.0); PLATELET COUNT, AUTOMATED 307 10^3/uL (150-450); RED BLOOD COUNT 3.53 10^6/uL (4.00-5.40); WHITE BLOOD COUNT 9.4 10^3/uL (4.0-10.0)
[2024-08-02 05:05] LABS: HEMOGLOBIN 10.7 g/dl (12.0-15.5)
[2024-08-02 05:45] LABS: ALBUMIN 2.7 G/DL (3.2-5.2); BILIRUBIN,TOTAL 0.6 MG/DL (0.3-1.2); CALCIUM LEVEL 8.1 MG/DL (8.3-10.6); CREATININE FOR GFR 1.15 MG/DL (0.55-1.30); GLOMERULAR FILTRATION RATE 49.7 (>39); POTASSIUM SERUM 3.9 MMOL/L (3.5-5.1); TOTAL PROTEIN 5.8 G/DL (5.7-8.2)
[2024-08-02 08:00] VITALS: BP 124/57; TEMP 97.2; O2SAT 97
[2024-08-02 11:43] VITALS: BP 116/57; TEMP 99; O2SAT 98
[2024-08-02] MEDS ORDERED: METR-265 PO (11:45)
[2024-08-02] MEDS ORDERED: CIPR-249 PO (11:45)
== END 2024-08-02 13:50 | disposition home or self-care (01) | DRG 389 ==
LOC: M ED 12:16 → M ED INP 15:58 → M ICU 18:19
PROVIDERS: ADMIT Hospitalist; ATTEND Hospitalist
DX: K56.50 Intestinal adhesions [bands], unspecified as to partial versus complete obstruction (principal); N17.9 Acute kidney failure, unspecified; K50.90 Crohn's disease, unspecified, without complications; E11.9 Type 2 diabetes mellitus without complications; I10 Essential (primary) hypertension; Z90.49 Acquired absence of other specified parts of digestive tract; Z93.2 Ileostomy status; Z86.711 Personal history of pulmonary embolism; E86.0 Dehydration; Z79.82 Long term (current) use of aspirin; Z79.899 Other long term (current) drug therapy; K52.9 Noninfective gastroenteritis and colitis, unspecified; Z88.8 Allergy status to other drugs, medicaments and biological substances

== ENCOUNTER → 2025-04-07 | Outpatient (CLI) | payer MEDICARE, BC ==
[~2025-04-07] MED LIST changes: +ALPR0.25 PO; +ASPI81TA26 PO; +CIPR-249 PO; +IBUP200C89 PO; +LOPE1CAP5 PO; +METR-265 PO; +ZOLP5TAB PO
[2025-04-07 11:37] LABS: BASO # 0.1 10^3/uL (0.0-0.2); BASO % 0.6 % (0.0-1.0); EOS # 0.1 10^3/uL (0.0-0.5); EOS % 1.4 % (0.0-3.0); HEMOGLOBIN 12.5 g/dl (12.0-15.5); LYMPH # 1.6 10^3/uL (1.5-5.0); LYMPH % 19.2 % (24.0-44.0); MEAN CORPUSCULAR HEMOGLOBIN 30.6 pg (27.0-33.0); MEAN CORPUSCULAR HGB CONC 32.9 g/dl (32.0-36.5); MEAN CORPUSCULAR VOLUME 93.1 fl (80.0-96.0); MONO # 0.7 10^3/uL (0.0-0.8); MONO % 7.9 % (2.0-8.0); NEUTROPHILS % 70.4 % (36.0-66.0); PLATELET COUNT, AUTOMATED 377 10^3/uL (150-450); RED BLOOD COUNT 4.08 10^6/uL (4.00-5.40); WHITE BLOOD COUNT 8.5 10^3/uL (4.0-10.0)
[2025-04-07 11:47] LABS: ERYTHROCYTE SEDIMENTATION RATE 49 mm/hr (0-30)
[2025-04-07 11:57] LABS: C REACTIVE PROTEIN QUANTITATIV 0.79 MG/DL (<1.0)
[2025-04-07 11:58] LABS: ALBUMIN 3.3 G/DL (3.2-5.2); BILIRUBIN,TOTAL 0.4 MG/DL (0.3-1.2); CALCIUM LEVEL 9.2 MG/DL (8.3-10.6); CREATININE FOR GFR 0.88 MG/DL (0.55-1.30); GLOMERULAR FILTRATION RATE 70.7 (>39); POTASSIUM SERUM 4.2 MMOL/L (3.5-5.1); TOTAL PROTEIN 7.3 G/DL (5.7-8.2)
== END ==
LOC: M LAB 10:31
PROVIDERS: ATTEND Surgery
DX: K50.00 Crohn's disease of small intestine without complications (principal)

== ENCOUNTER → 2025-04-12 | Outpatient (REF) | payer MEDICARE, BC | LOC: M LAB REF 14:17 | PROVIDERS: ATTEND Surgery | DX: K50.00 Crohn's disease of small intestine without complications (principal) ==

== ENCOUNTER → 2025-06-30 | Outpatient (REF) | payer MEDICARE, BC ==
[2025-06-30 15:06] LABS: IRON (FE) 61.0 UG/DL (50-170); PERCENT SATURATION 19.1 % (13.2-45.0)
== END ==
LOC: M LAB REF 14:43
PROVIDERS: ATTEND Nurse Practitioner Family
DX: D64.9 Anemia, unspecified (principal)